=== PATIENT | female | born 1965 | race Caucasian/White ===

== ENCOUNTER 2024-03-06 15:41 | Inpatient (IN) | payer OTHER, SELFPAY ==
--- NOTE | ~2024-03-06 | XR_ITS ---
EXAMINATION: XR LUMBOSACRAL SPINE CLINICAL INFORMATION: Increasing pain. COMPARISON: None available. TECHNIQUE: AP and lateral views of the lumbar spine and lateral view of the lumbosacral junction. FINDINGS: There is bony demineralization. Vertebral body heights are normal. At L2-L3, there is rightward disc space narrowing, a 4 mm retrolisthesis and endplate arthropathy. At L3-L4, there is a 4 mm retrolisthesis. At L5-S1, there is marked degenerative disc disease, with disc space narrowing. No acute fracture or spondylolisthesis is seen. There is multi-level lumbar endplate and facet arthropathy. The paravertebral soft tissues are unremarkable. XR/XR lumbar spine 2-3V IMPRESSION: 1. There is moderate degenerative disease at L2-L3 and L3-L4, and marked degenerative disc disease is seen at L5-S1. 2. There is multi-level lumbar spondylosis and endplate arthropathy.
[2024-03-06 16:30] VITALS: PULSE 112; RESP 16; TEMP 36.6
[2024-03-06 17:32] VITALS: BMI 25.9
--- NOTE | 2024-03-06 18:24 | PC.ADMIT ---
Esther arrived via ambulance from [facility] at 1600. She initially refused to get off the stretcher, stating I cant walk . With much encouragement from this nurse and sharing with her that the previous hospital shared that she was doing well walking around , she eventually got off the stretcher with staff assist. She cooperated with skin/safety check, her skin check was only remarkable for a superficial 1.5inch abrasion on top of right foot, she has dry flaky skin on face. She is oriented to person only. She was oriented by this nurse for the other facets but they did not appear to be retained. Esther declined the CV and a 12b was signed by Jimenez Garsia NP. She denies knowing why she is here. She described the ambulance ride as treacherous and terrible . She was recently at [facility] and upon discharge and return to her snf, she reported weakness and not being able to get off of the stretcher. She was then brought to [facility] for evaluation. This, according to hospital record, is not unusual as she has a history of similar behaviours and is likely volitional . She is unkempt and malodorous. She was uncooperative with admission process, refused vitals and to fill out the menu. She was shown to her room, she is distressed and angry that she is here. She states she will refuse to eat or drink. She has working diagnosis of anxiety, atrial fibrillation, generalized weakness, [id number], seizure disorder, HTN, BIPOLAR, SCHIZOAFFECTIVE DISORDER. Order for hospitalist consult placed per policy as she came from outside facility.
--- NOTE | 2024-03-06 18:30 | HO.PM.IMCN ---
History of Present Illness Data of Consult Service Date: 03/06/24 Primary Care Provider: Unknown Physician HPI Reason for consult: Admission H&P Pt is a 59-year-old female with a PMH significant for?unspecified seizure disorder, hx of PE on Eliquis, HTN, GERD, schizoaffective disorder, and bipolar disorder who is admitted to M5 psychiatry unit for psychological decompensation with SI and HI. Pt was recently hospitalized at [facility] and discharged to a new [facility]. However, upon arrival pt refused to get out of the van, complaining she was too weak to walk. She was then brought back to the hospital where she initially refused to answer questions or participate in physical exam. She eventually told an RN she refused to leave the transport vehicle because they did not bring her to her old [facility]. According to documentation, pt has a long history of maladaptive behaviors, including refusing to walk/talk, being selectively mute, threatening to kill staff, generally being uncooperative with interviews and treatment. Pt exhibited similar behavior after being brought here to this facility, complaining of being too weak to walk and get off the stretcher, though pt has since been able to freely ambulate while in her room. Medical consult for admission H&P. ?Pt is selectively cooperative during interview, not responding to all ROS queries and only complaining about feeling like she will pass out while eating when she does answer. She is unable to further clarify what symptoms she is feeling. Pt is constantly grunting/mumbling to herself and exhibiting tardive dyskinesia-like lip-smacking movements. Review of Systems Review of Systems: Complains only of feeling like she will pass out [facility] Medical History (Updated 03/07/24 @ 12:34 by ALBANIA Harrell) Pulmonary embolism Seizure disorder Hyperlipidemia Hypertension Social History Household Members: Other Household Members Other:: [facility]cc Housing: Other Housing Other:: [facility] Patient Tobacco Use Status: Never used Tobacco Smoked in Last 30 Days: No e-Cigarette/Vaping Use: Never Used Patient Interested in Nicotine Replacement: No Patient Given Instructions on How to Stop Smoking: No Second Hand Smoke Exposure: No Use of substances other than those prescribed or required for medical reasons: No Currently Displaying Signs/Symptoms of Drug Intoxication Withdrawal: No Do you feel safe in your current relationship?: No Current Relationship Spiritual Healthcare Practices: refuses to participate Mormon Healthcare Practices: refuses to participate Cultural Healthcare Practices: refuses to participate Advance Directives: No Advance Directives Information Provided: No Do you have thoughts of harming others: None Do you have a plan to hurt others: No Plan Nutrition Risks: No Nutritional Risk Patient : No : No Poor oral hygiene: No Meds Allergies Allergy/AdvReac Type Severity Reaction Status Date / Time amoxicillin Allergy Unknown Verified 03/06/24 17:04 aripiprazole [From Abilify] Allergy Unknown Verified 03/06/24 17:20 Barbiturates Allergy Nausea and Verified 03/06/24 17:20 Vomiting ceftriaxone Allergy Unknown Verified 03/06/24 17:20 ciprofloxacin Allergy Unknown Verified 03/06/24 17:20 Latex, Natural Rubber Allergy Hives Verified 03/06/24 17:20 oxycodone Allergy Unknown Verified 03/06/24 17:20 Penicillins Allergy Unknown Verified 03/06/24 17:20 Sulfa (Sulfonamide Allergy Blister Verified 03/06/24 17:20 Antibiotics) venlafaxine [From Effexor] Allergy Unknown Verified 03/06/24 17:20 Venlafaxine Analogues Allergy Unknown Verified 03/06/24 17:20 Active Medications: Current Medications Acetaminophen (Acetaminophen 325 Mg Tablet) 650 mg PO Q6H PRN PRN Reason: Headache/Pain Mild Scale (1-3) Al Hydroxide/Mg Hydroxide (Magnesium Hydrox/Alum Hydrox 30 Ml Oral.Susp) 30 ml PO Q6H PRN PRN Reason: Heartburn/Nausea Hydroxyzine HCl (Hydroxyzine Hcl 25 Mg Tablet) 25 mg PO Q6H PRN PRN Reason: Anxiety Magnesium Hydroxide (Milk Of Magnesia 30 Ml Oral.Susp) 30 ml PO DAILY PRN PRN Reason: Constipation Nicotine Polacrilex (Nicotine Polacrilex 2 Mg Gum) 2 mg BUCCAL Q2H PRN PRN Reason: Nicotine Cravings Trazodone HCl (Trazodone Hcl 50 Mg Tablet) 50 mg PO BEDTIME MRX1 PRN PRN Reason: Insomnia Home Medications ?Medication ?Instructions ?Recorded ?Confirmed ?Last Taken ?Type acetaminophen 325 mg tablet 650 mg PO Q6H PRN Anxiety 03/06/24 03/06/24 Unknown History apixaban 2.5 mg tablet 2.5 mg PO BID 03/06/24 03/06/24 Unknown History bisacodyl 5 mg tablet 10 mg BEDTIME 03/06/24 03/06/24 Unknown History cyclobenzaprine 10 mg tablet 10 mg PO TID PRN muscle spasms 03/06/24 03/06/24 Unknown History docusate sodium 100 mg capsule 100 mg PO DAILY 03/06/24 03/06/24 Unknown History famotidine 40 mg tablet 40 mg PO DAILY 03/06/24 03/06/24 Unknown History ferrous sulfate 325 mg (65 mg 325 mg PO DAILY 03/06/24 03/06/24 Unknown History iron) tablet fluphenazine HCl 2.5 mg tablet 2.5 mg PO BID 03/06/24 03/06/24 Unknown History fluphenazine HCl 5 mg tablet 5 mg PO BEDTIME 03/06/24 03/06/24 Unknown History fluticasone propionate 50 1 spray intranasal BID 03/06/24 03/06/24 Unknown History mcg/actuation nasal spray,suspension gabapentin 100 mg capsule 100 mg PO TID 03/06/24 03/06/24 Unknown History lamotrigine 25 mg tablet 25 mg PO BID 03/06/24 03/06/24 Unknown History levetiracetam 1,000 mg tablet 1,000 mg PO BID 03/06/24 03/06/24 Unknown History lidocaine 4 % topical cream 1 appl topical DAILY 03/06/24 03/06/24 Unknown History lidocaine 5 % topical patch 1 patch topical DAILY 03/06/24 03/06/24 Unknown History lorazepam 1 mg tablet 1 mg PO BID 03/06/24 03/06/24 Unknown History losartan 50 mg tablet 50 mg PO DAILY 03/06/24 03/06/24 Unknown History magnesium oxide 400 mg (241.3 mg 400 mg PO DAILY 03/06/24 03/06/24 Unknown History magnesium) tablet melatonin 3 mg tablet 3 mg PO BEDTIME PRN Sleep 03/06/24 03/06/24 Unknown History metoprolol succinate 50 mg 50 mg PO DAILY 03/06/24 03/06/24 Unknown History tablet,extended release 24 hr miconazole 2 topical BEDTIME 03/06/24 Unknown History multivitamin with minerals 1 tab PO DAILY 03/06/24 03/06/24 Unknown History paliperidone 6 mg tablet,extended 6 mg PO QAM 03/06/24 03/06/24 Unknown History release 24 hr polyethylene glycol 3350 17 gram 17 g PO DAILY 03/06/24 03/06/24 Unknown History oral powder packet (Miralax) sennosides 17.2 mg tablet 17.2 mg PO BID 03/06/24 03/06/24 Unknown History simethicone 80 mg chewable tablet 80 mg PO QID 03/06/24 03/06/24 Unknown History (Gas Relief 80 (simethicone)) thiamine HCl (vitamin B1) 100 mg 100 mg PO DAILY 03/06/24 03/06/24 Unknown History tablet tramadol 50 mg tablet 50 mg PO Q4H PRN Severe Pain 03/06/24 03/06/24 Unknown History (Scale Score 7-10) Physical Exam Vital Signs and Narrative: Vital Signs: BMI result Body Mass Index 25.9 General: Alert, answering questions selectively, no acute distress Resp: CTA bilaterally CVS: S1, S2, RRR GI: +BS, NT, no distention Skin: Warm, dry Neuro: Cranial nerves II-XII grossly intact bilaterally. Motor grossly intact bilaterally though global weakness noted. Resting tremors of upper extremities. Repetitive lip smacking. Extremities: No edema Psych: Appropriate affect Results Labs 03/07/24 08:29 03/07/24 08:29 Assessment and Plan (1) Medical clearance for psychiatric admission: Status: Acute Plan Pt is a 59-year-old female with a PMH significant for?unspecified seizure disorder, hx of PE on Eliquis, HTN, GERD, schizoaffective disorder, and bipolar disorder who is admitted to M5 psychiatry unit for psychological decompensation with SI and HI. Medical consult for admission H&P. Mood disorder Plan as per psychiatry Seizure disorder, unspecified Continue Keppra Hx of DVT/PE Continue Eliquis HTN Acceptable control under current therapies Continue losartan, metoprolol GERD Continue famotidine Thank you for allowing us to participate in the care of this patient. Signing off at this time. Please re-consult if any acute complaints or issues arise.
[2024-03-06 19:18] VITALS: BP 140/76; PULSE 111; TEMP 36.7; O2SAT 98
[2024-03-06 21:10] VITALS: BP 191/99; PULSE 148; TEMP 36.8; O2SAT 97
[2024-03-06] MEDS: diazePAM 10 MG/2 ML CARTRIDGE 5 MG IM (21:18)
--- NOTE | 2024-03-06 21:23 | PM.EVENT ---
Event Note Date of Service: 03/06/24 Event Note: Rapid response was called for possible seizure. As per the nurse, patient was not responding to verbal stimulus and questionable eye rolling and jerking movements of extremities. Not postictal at the time of my evaluation. Seizure versus pseudo-seizure in a patient with seizure disorder. Administering IM Valium. Continue Keppra, Lamictal, p.o. lorazepam Time Spent With Patient Time: Total time managing care of this patient today ____ minutes.
[2024-03-06 21:25] VITALS: BP 142/80; PULSE 125; TEMP 36.8; O2SAT 97
[2024-03-06] MEDS: LORazepam 1 MG TABLET PO (22:20)
[2024-03-06] MEDS: Simethicone 80 MG TAB.CHEW PO (22:20)
[2024-03-06] MEDS: fluPHENAZine HCl 5 MG TABLET PO (22:23)
[2024-03-06] MEDS: lamoTRIgine 25 MG TABLET PO (22:23)
[2024-03-06] MEDS: levETIRAcetam 1,000 MG TABLET 1000 MG PO (22:23)
[2024-03-06] MEDS: Gabapentin 100 MG CAPSULE PO (22:23)
[2024-03-06] MEDS: Paliperidone ER 6 MG TAB.ER.24 PO (22:24)
[2024-03-06] MEDS: Apixaban 2.5 MG TABLET PO (22:24)
[2024-03-06 22:25] VITALS: BP 136/69; PULSE 100; RESP 18; TEMP 36.4; O2SAT 95
[2024-03-06] MEDS: fluPHENAZine HCl 2.5 MG TABLET PO (22:33)
--- NOTE | 2024-03-07 07:23 | PC.NURSE ---
Pt appeared to have a possible seizure at 2007 in her bed with no fall. Pt initially had a fixed stare followed by convulsions and cherelle limbs lasting about 1.5 minutes. Rapid response was called at 2107, VS were assessed and code cart was brought to room. Pt responded with delayed verbal responses at 2109. Rapid Response team arrived at 2110. Dr. Baker ordered Valium 5mg IM that was given at 2117. Pt had elevated BP and Pulse that settled to baseline with in an hour. Dr. Baker okayed pt getting HAS meds which were given including Keppra 100mg BID. Pt appeared to sleep through night. On-Call provider, Dr Recinos informed at 2321.
[2024-03-07 08:00] VITALS: BP 140/63; PULSE 115; RESP 16; TEMP 36.3; O2SAT 95
--- NOTE | 2024-03-07 08:39 | P.HPPS_ITS ---
HPI Date of Service: 03/07/24 Chief Complaint: Schizoaffective Disorder Bipolar Type Sources of Information: patient interviewed, chart reviewed and crisis/core team assessment reviewed HPI Subjective Notes: Parker Warning and Conditional Voluntary Narrative: Ms. Howard is a 59 year-old woman with hx of schizoaffective disorder who resides at . Per records, pt was being discharged from [facility] and declined to get out of van to go to her nursing home reporting that she was weak and couldn't ambulate. She was brought to ED medically cleared. On the unit, pt presents with irritable edge. She reports she can't walk and is about to faint. Pt redirected to sit on the chair which at times she declines stating she is not comfortable doing so. She denies SI/HI. She reports she is here because of her weakness. She reports she needs a new place to live. No contact information was included from records sent from sending hospital. She is a poor hisotrian and intake is very limited. She denies visual or auditory hallucinations. She may have some degree of somatic delusions. Although it is noted some myoclonus on exam on both lower extremities. Past Psychiatric History: INpt: per records multiple in the past. recently discharged from [facility] Medical Evaluation Reviewed: Yes [facility] Medical History (Updated 03/09/24 @ 06:11 by Erin Johnson) Pulmonary embolism Seizure disorder Hyperlipidemia Hypertension Social History: Pt resides at . Substance History: denies Trauma History: not disclosed Diagnostics Vital Signs (24Hr): Vital Signs - 24 hr 03/06/24 16:30 03/06/24 19:18 03/06/24 21:10 Temperature 97.8 F 98.0 F 98.2 F Pulse Rate 112 H 111 H 148 H Respiratory Rate 16 Blood Pressure 140/76 H 191/99 H Pulse Oximetry 98 97 Oxygen Delivery Method Room Air Room Air 03/06/24 21:25 03/06/24 22:25 Temperature 98.2 F 97.5 F Pulse Rate 125 H 100 Respiratory Rate 18 Blood Pressure 142/80 H 136/69 Pulse Oximetry 97 95 Oxygen Delivery Method Room Air Room Air BMI result Body Mass Index 25.9 Labs 03/07/24 08:29 03/07/24 08:29 Meds/Allergies Meds Home Medications ?Medication ?Instructions ?Recorded ?Confirmed ?Type acetaminophen 325 mg tablet 650 mg PO Q6H PRN Anxiety 03/06/24 03/06/24 History apixaban 2.5 mg tablet 2.5 mg PO BID 03/06/24 03/06/24 History bisacodyl 5 mg tablet 10 mg BEDTIME 03/06/24 03/06/24 History cyclobenzaprine 10 mg tablet 10 mg PO TID PRN muscle spasms 03/06/24 03/06/24 History docusate sodium 100 mg capsule 100 mg PO DAILY 03/06/24 03/06/24 History famotidine 40 mg tablet 40 mg PO DAILY 03/06/24 03/06/24 History ferrous sulfate 325 mg (65 mg 325 mg PO DAILY 03/06/24 03/06/24 History iron) tablet fluphenazine HCl 2.5 mg tablet 2.5 mg PO BID 03/06/24 03/06/24 History fluphenazine HCl 5 mg tablet 5 mg PO BEDTIME 03/06/24 03/06/24 History fluticasone propionate 50 1 spray intranasal BID 03/06/24 03/06/24 History mcg/actuation nasal spray,suspension gabapentin 100 mg capsule 100 mg PO TID 03/06/24 03/06/24 History lamotrigine 25 mg tablet 25 mg PO BID 03/06/24 03/06/24 History levetiracetam 1,000 mg tablet 1,000 mg PO BID 03/06/24 03/06/24 History lidocaine 4 % topical cream 1 appl topical DAILY 03/06/24 03/06/24 History lidocaine 5 % topical patch 1 patch topical DAILY 03/06/24 03/06/24 History lorazepam 1 mg tablet 1 mg PO BID 03/06/24 03/06/24 History losartan 50 mg tablet 50 mg PO DAILY 03/06/24 03/06/24 History magnesium oxide 400 mg (241.3 mg 400 mg PO DAILY 03/06/24 03/06/24 History magnesium) tablet melatonin 3 mg tablet 3 mg PO BEDTIME PRN Sleep 03/06/24 03/06/24 History metoprolol succinate 50 mg 50 mg PO DAILY 03/06/24 03/06/24 History tablet,extended release 24 hr miconazole 2 topical BEDTIME 03/06/24 History multivitamin with minerals 1 tab PO DAILY 03/06/24 03/06/24 History paliperidone 6 mg tablet,extended 6 mg PO QAM 03/06/24 03/06/24 History release 24 hr polyethylene glycol 3350 17 gram 17 g PO DAILY 03/06/24 03/06/24 History oral powder packet (Miralax) sennosides 17.2 mg tablet 17.2 mg PO BID 03/06/24 03/06/24 History simethicone 80 mg chewable tablet 80 mg PO QID 03/06/24 03/06/24 History (Gas Relief 80 (simethicone)) thiamine HCl (vitamin B1) 100 mg 100 mg PO DAILY 03/06/24 03/06/24 History tablet tramadol 50 mg tablet 50 mg PO Q4H PRN Severe Pain 03/06/24 03/06/24 History (Scale Score 7-10) Allergies Allergies Allergy/AdvReac Type Severity Reaction Status Date / Time amoxicillin Allergy Unknown Verified 03/06/24 17:04 aripiprazole [From Abilify] Allergy Unknown Verified 03/06/24 17:20 Barbiturates Allergy Nausea and Verified 03/06/24 17:20 Vomiting ceftriaxone Allergy Unknown Verified 03/06/24 17:20 ciprofloxacin Allergy Unknown Verified 03/06/24 17:20 Latex, Natural Rubber Allergy Hives Verified 03/06/24 17:20 oxycodone Allergy Unknown Verified 03/06/24 17:20 Penicillins Allergy Unknown Verified 03/06/24 17:20 Sulfa (Sulfonamide Allergy Blister Verified 03/06/24 17:20 Antibiotics) venlafaxine [From Effexor] Allergy Unknown Verified 03/06/24 17:20 Venlafaxine Analogues Allergy Unknown Verified 03/06/24 17:20 Mental Status Exam Mental Status Exam Narrative: Appearance: appears older than stated age, irritable edge, wearing glasses, in NAD Behavior: irritable and guarded Psychomotor: no agitation or retardation noted Speech: mumbles, difficult to understand at times, spontaneous TP: focused on inability to walk and weakness TC: wanting treatment for weakness Mood: tired Affect: irritable edge, intense eye contact SI: denies HI: denies VH/AH: does not appear internally preoccupied Delusions: unclear if somatic delusions. Insight/judgment: impaired x 2. memory/cog: alert, not oriented to situation although oriented to place, year, month. Assessment & Plan Assessment & Plan (1) Schizoaffective disorder: Status: Acute Code(s): F25.9 - Schizoaffective disorder, unspecified Plan Ms. Howard is a 59 year-old woman with hx of schizoaffective disorder who was admitted for declining to get out of the van to her nursing home after she was discharged from [facility]). Per records, hx of maladaptive behaviors which are chronic. No other acute concern in terms of psychiatric presentation. Pt is very poor historian and documentation sent from hospital is also limited. Obtain collateral information. PLAN 1. admit to . CV, 15 minutes checks for safety 2. continue current medications 3. obtain collateral information 4. aftercare planning. Patient educated on: diagnosis and medication risk/benefits Reason for continued inpatient stay Substantial Risk for: inability to function Statement Statement: I have reviewed the history and physical and performed a pertinent examination on my patient. No changes have occurred unless specified. If the History and Physical was not performed prior to admission, the Hospitalist's service will be consulted for completing the admission physical. Time Spent With Patient Time: Total time managing care of this patient today ____ minutes.
[2024-03-07 08:44] LABS: MANUAL DIFF FLAG NO
[2024-03-07 08:47] LABS: Basophils Percent Auto 0.2 % (0-2); Hematocrit 33.2 % (37.0-47.0); Hemoglobin 11.1 g/dl (12.0-16.0); Imm Gran Abs Auto 0.02 X10*3/uL (0.00-0.03); Imm Gran Pct Auto 0.4 % (0.0-0.4); Lymphocytes Absolute Auto 1.1 X10*3/uL (1.2-4.9); Lymphocytes Percent Auto 22.7 % (20-40); Mean Corpuscular HGB Conc 33.4 g/dl (31.0-35.0); Mean Corpuscular Hemoglobin 30.4 pg (27.0-33.0); Mean Platelet Volume 8.4 fL (9.4-12.3); Monocytes Absolute Auto 0.4 X10*3/uL (0.1-1.2); Monocytes Percent Auto 7.4 % (2-11); Neutrophils Absolute Auto 3.3 x10*3/uL (2.0-8.3); Neutrophils Percent Auto 69.3 % (45-73); Platelet Count 196 X10*3/uL (160-400); Red Blood Count 3.65 X10*6/uL (4.20-5.50); Red Cell Distribution Width 15.1 % (11.0-16.0); White Blood Count 4.8 X10*3/uL (4.8-10.8)
[2024-03-07] MEDS: Thiamine HCL 100 MG TABLET PO (09:00)
[2024-03-07 09:09] LABS: Estimated Average Glucose 123 mg/dL; Hemoglobin A1c % 5.9 % (<6.0)
[2024-03-07] MEDS: Simethicone 80 MG TAB.CHEW PO ×3 (09:12→21:00)
[2024-03-07] MEDS: Paliperidone ER 6 MG TAB.ER.24 PO (09:14)
[2024-03-07] MEDS: Docusate Sodium 100 MG CAPSULE PO (09:14)
[2024-03-07] MEDS: LORazepam 1 MG TABLET PO ×2 (09:14→20:59)
[2024-03-07] MEDS: Ferrous Sulfate 324 MG TABLET.DR PO (09:14)
[2024-03-07] MEDS: lamoTRIgine 25 MG TABLET PO ×2 (09:14→20:59)
[2024-03-07] MEDS: Famotidine 20 MG TABLET 40 MG PO (09:15)
[2024-03-07] MEDS: Magnesium Oxide 400 MG TABLET PO (09:16)
[2024-03-07] MEDS: fluPHENAZine HCl 2.5 MG TABLET PO ×2 (09:16→21:00)
[2024-03-07] MEDS: levETIRAcetam 1,000 MG TABLET 1000 MG PO ×2 (09:16→20:59)
[2024-03-07] MEDS: Apixaban 2.5 MG TABLET PO ×2 (09:16→21:00)
[2024-03-07] MEDS: Gabapentin 100 MG CAPSULE PO ×3 (09:16→20:59)
[2024-03-07] MEDS: Losartan Potassium 50 MG TABLET PO (09:16)
[2024-03-07 09:17] LABS: Alanine Aminotransferase 9 U/L (0-31); Albumin Level 3.8 g/dL (3.5-5.0); Alkaline Phosphatase 57 U/L (39-117); Anion Gap 12 (12-20); Aspartate Amino Transferase 11 U/L (5-31); Bilirubin Total 0.3 mg/dL (0.0-1.0); Blood Urea Nitrogen 13 mg/dL (9-16); Calcium 9.2 mg/dL (8.4-10.2); Carbon Dioxide 24 mmol/L (22-29); Chloride 107 mmol/L (96-108); Cholesterol 224 mg/dL (<200); Creatinine Clr Calc Pharmacy 93.6; Estimated Glomerular Filt Rate > 60; Glucose Fasting 154 mg/dL (60-99); HDL Cholesterol 47 mg/dL (>40); LDL Cholesterol Calculated 161 mg/dL (<100); Potassium 3.2 mmol/L (3.3-5.1); Sodium 140 mmol/L (135-145); Total Protein 6.3 g/dL (6.5-8.0); Triglycerides 81 mg/dL (<150)
[2024-03-07 09:34] LABS: Free T4 (Free Thyroxine) 1.06 ng/dL (0.71-1.85); Thyroid Stimulating Hormone 1.95 uIU/mL (0.32-4.0)
[2024-03-07] MEDS: Lidocaine 4 % Patch ADH..PATCH 1 PATCH TRANSDERMA ×2 (09:36→13:26)
[2024-03-07] MEDS: Multivitamin TABLET 1 TAB PO (09:39)
[2024-03-07 09:44] LABS: Folate 11.1 ng/mL (> or = 4.0); Vitamin B12 334 pg/mL (200-900)
[2024-03-07] MEDS: Metoprolol Succinate ER 50 MG TAB.ER.24H PO (09:52)
[2024-03-07] MEDS: Acetaminophen 325 MG TABLET 650 MG PO (13:25)
[2024-03-07] MEDS: Cyclobenzaprine HCl 10 MG TABLET PO (15:25)
[2024-03-07] MEDS: traMADoL HCL 50 MG TABLET PO (15:25)
[2024-03-07 20:00] VITALS: BP 95/58; PULSE 92; RESP 16; TEMP 36.4; O2SAT 100
[2024-03-07] MEDS: fluPHENAZine HCl 5 MG TABLET PO (20:59)
[2024-03-07] MEDS: Sennosides 8.6 MG TABLET 17.2 MG PO (20:59)
[2024-03-07] MEDS: bisacodyL 5 MG TABLET.DR 10 MG PO (21:00)
[2024-03-08 08:00] VITALS: BP 138/84; PULSE 104; RESP 16; TEMP 36.6; O2SAT 97
[2024-03-08] MEDS: Paliperidone ER 6 MG TAB.ER.24 PO (09:47)
[2024-03-08] MEDS: lamoTRIgine 25 MG TABLET PO ×2 (09:47→20:11)
[2024-03-08] MEDS: Thiamine HCL 100 MG TABLET PO (09:47)
[2024-03-08] MEDS: polyethylene glycoL 3350 17 GM POWD.PACK PO (09:47)
[2024-03-08] MEDS: Sennosides 8.6 MG TABLET 17.2 MG PO ×2 (09:47→20:11)
[2024-03-08] MEDS: Gabapentin 100 MG CAPSULE PO ×3 (09:47→20:11)
[2024-03-08] MEDS: fluPHENAZine HCl 2.5 MG TABLET PO ×2 (09:47→20:11)
[2024-03-08] MEDS: Magnesium Oxide 400 MG TABLET PO (09:47)
[2024-03-08] MEDS: LORazepam 1 MG TABLET PO ×2 (09:48→20:11)
[2024-03-08] MEDS: Multivitamin TABLET 1 TAB PO (09:48)
[2024-03-08] MEDS: Metoprolol Succinate ER 50 MG TAB.ER.24H PO (09:48)
[2024-03-08] MEDS: Apixaban 2.5 MG TABLET PO ×2 (09:48→20:11)
[2024-03-08] MEDS: Famotidine 20 MG TABLET 40 MG PO (09:48)
[2024-03-08] MEDS: levETIRAcetam 1,000 MG TABLET 1000 MG PO ×2 (09:48→20:11)
[2024-03-08] MEDS: Cyclobenzaprine HCl 10 MG TABLET PO (09:48)
[2024-03-08] MEDS: Ferrous Sulfate 324 MG TABLET.DR PO (09:48)
[2024-03-08] MEDS: Simethicone 80 MG TAB.CHEW PO ×3 (09:48→20:10)
[2024-03-08] MEDS: Docusate Sodium 100 MG CAPSULE PO (09:48)
[2024-03-08] MEDS: Losartan Potassium 50 MG TABLET PO (09:49)
[2024-03-08] MEDS: Acetaminophen 325 MG TABLET 650 MG PO (09:50)
[2024-03-08] MEDS: Fluticasone Propionate Nasal 16 GM SPRAY 1 SPRAY NOSTRIL-B (10:01)
[2024-03-08] MEDS: Lidocaine 4 % Patch ADH..PATCH 1 PATCH TRANSDERMA (10:01)
--- NOTE | 2024-03-08 19:23 | P.PNPSI_ITS ---
Subjective Subjective Date of Service: 03/08/24 Reason For Visit: Schizoaffective Disorder Bipolar Type Subjective Notes: Conditional Voluntary Interim History: Pt slept most of the night. continues to complaint about not being able to walk and people not believing her. She is observed walking. She denies SI/HI. She asking for staff to be with her at all times. She has irritable edge. taking medications. pending collateral information Review of Systems Review of Systems Complains only of feeling like she will pass out Mental Status Exam Mental Status Exam Narrative: Appearance: appears older than stated age, irritable edge, wearing glasses, in NAD Behavior: irritable and guarded Psychomotor: no agitation or retardation noted Speech: mumbles, difficult to understand at times, spontaneous TP: focused on inability to walk and weakness TC: wanting treatment for weakness Mood: tired Affect: irritable edge, intense eye contact SI: denies HI: denies VH/AH: does not appear internally preoccupied Delusions: unclear if somatic delusions. Insight/judgment: impaired x 2. memory/cog: alert, not oriented to situation although oriented to place, year, month. Diagnostics Vital Signs (24Hr): Vital Signs - 24 hr 03/07/24 20:00 03/08/24 08:00 Temperature 97.5 F 98 F Pulse Rate 92 104 H Respiratory Rate 16 16 Blood Pressure 95/58 L 138/84 Pulse Oximetry 100 97 Oxygen Delivery Method Room Air Room Air BMI result Body Mass Index 25.9 Labs 03/07/24 08:29 03/07/24 08:29 Labs: Laboratory Results - last 48 hr 03/07/24 08:29 WBC 4.8 RBC 3.65 L Hgb 11.1 L Hct 33.2 L MCV 91.0 MCH 30.4 MCHC 33.4 RDW 15.1 Plt Count 196 MPV 8.4 L Immature Gran % (Auto) 0.4 Neut % (Auto) 69.3 Lymph % (Auto) 22.7 Travis % (Auto) 7.4 Eos % (Auto) 0.0 Baso % (Auto) 0.2 Lymph # (Auto) 1.1 L Travis # (Auto) 0.4 Eos # (Auto) 0.0 Baso # (Auto) 0.0 Abs Immat Gran (auto) 0.02 Absolute Neuts (auto) 3.3 Absolute Nucleated RBC 0.000 Nucleated RBC % (auto) 0.0 Sodium 140 Potassium 3.2 L Chloride 107 Carbon Dioxide 24 Anion Gap 12 BUN 13 Creatinine 0.63 Estim Creat Clear Calc 93.6 Estimated GFR > 60 Fasting Glucose 154 H Estimat Average Glucose 123 Hemoglobin A1c % 5.9 Calcium 9.2 Total Bilirubin 0.3 AST 11 ALT 9 Alkaline Phosphatase 57 Total Protein 6.3 L Albumin 3.8 Triglycerides 81 Cholesterol 224 H LDL Cholesterol, Calc 161 H HDL Cholesterol 47 Vitamin B12 334 Folate 11.1 TSH 1.95 Free T4 1.06 Medications Medications Current Medications Acetaminophen (Acetaminophen 325 Mg Tablet) 650 mg PO Q6H PRN PRN Reason: Headache/Pain Mild Scale (1-3) Last Admin: 03/08/24 09:50 Dose: 650 mg Al Hydroxide/Mg Hydroxide (Magnesium Hydrox/Alum Hydrox 30 Ml Oral.Susp) 30 ml PO Q6H PRN PRN Reason: Heartburn/Nausea Apixaban (Apixaban 2.5 Mg Tablet) 2.5 mg PO BID [facility] Last Admin: 03/08/24 09:48 Dose: 2.5 mg Bisacodyl (Bisacodyl 5 Mg Tablet.) 10 mg PO BEDTIME [facility] Last Admin: 03/07/24 21:00 Dose: 10 mg Cyclobenzaprine HCl (Cyclobenzaprine Hcl 10 Mg Tablet) 10 mg PO TID PRN PRN Reason: muscle spasms Last Admin: 03/08/24 09:48 Dose: 10 mg Docusate Sodium (Docusate Sodium 100 Mg Capsule) 100 mg PO DAILY [facility] Last Admin: 03/08/24 09:48 Dose: 100 mg Famotidine (Famotidine 20 Mg Tablet) 40 mg PO DAILY [facility] Last Admin: 03/08/24 09:48 Dose: 40 mg Ferrous Sulfate (Ferrous Sulfate 324 Mg Tablet.) 324 mg PO DAILY [facility] Last Admin: 03/08/24 09:48 Dose: 324 mg Fluphenazine HCl (Fluphenazine Hcl 2.5 Mg Tablet) 2.5 mg PO BID [facility] Last Admin: 03/08/24 09:47 Dose: 2.5 mg Fluphenazine HCl (Fluphenazine Hcl 5 Mg Tablet) 5 mg PO BEDTIME [facility] Last Admin: 03/07/24 20:59 Dose: 5 mg Fluticasone Propionate (Fluticasone Propionate Nasal 16 Gm [place]) 1 spray NOSTRIL-B BID [facility] Last Admin: 03/08/24 10:01 Dose: 1 spray Gabapentin (Gabapentin 100 Mg Capsule) 100 mg PO TID [facility] Last Admin: 03/08/24 14:23 Dose: 100 mg Hydroxyzine HCl (Hydroxyzine Hcl 25 Mg Tablet) 25 mg PO Q6H PRN PRN Reason: Anxiety Lamotrigine (Lamotrigine 25 Mg Tablet) 25 mg PO BID [facility] Last Admin: 03/08/24 09:47 Dose: 25 mg Levetiracetam (Levetiracetam 1,000 Mg Tablet) 1,000 mg PO BID [facility] Last Admin: 03/08/24 09:48 Dose: 1,000 mg Lidocaine (Lidocaine 4 % Patch Adh..Patch) 1 patch TRANSDERMA DAILY [facility] Last Admin: 03/08/24 10:01 Dose: 1 patch Lorazepam (Lorazepam 1 Mg Tablet) 1 mg PO BID [facility] Last Admin: 03/08/24 09:48 Dose: 1 mg Losartan Potassium (Losartan Potassium 50 Mg Tablet) 50 mg PO DAILY [facility]; Protocol Last Admin: 03/08/24 09:49 Dose: 50 mg Magnesium Hydroxide (Milk Of Magnesia 30 Ml Oral.Susp) 30 ml PO DAILY PRN PRN Reason: Constipation Magnesium Oxide (Magnesium Oxide 400 Mg Tablet) 400 mg PO DAILY [facility] Last Admin: 03/08/24 09:47 Dose: 400 mg Melatonin (Melatonin 3 Mg Tablet) 3 mg PO BEDTIME PRN PRN Reason: Sleep Metoprolol Succinate (Metoprolol Succinate Er 50 Mg Tab.Er.24h) 50 mg PO DAILY [facility]; Protocol Last Admin: 03/08/24 09:48 Dose: 50 mg Multivitamins/Vitamin C (Multivitamin Tablet) 1 tab PO DAILY [facility] Last Admin: 03/08/24 09:48 Dose: 1 tab Nicotine Polacrilex (Nicotine Polacrilex 2 Mg Gum) 2 mg BUCCAL Q2H PRN PRN Reason: Nicotine Cravings Paliperidone (Paliperidone Er 6 Mg Tab.Er.24) 6 mg PO DAILY [facility] Last Admin: 03/08/24 09:47 Dose: 6 mg Polyethylene Glycol (Polyethylene Glycol 3350 17 Gm Powd.Pack) 17 gm PO DAILY [facility] Last Admin: 03/08/24 09:47 Dose: 17 gm Senna (Sennosides 8.6 Mg Tablet) 17.2 mg PO BID [facility] Last Admin: 03/08/24 09:47 Dose: 17.2 mg Simethicone (Simethicone 80 Mg Tab.Chew) 80 mg PO QID [facility] Last Admin: 03/08/24 17:41 Dose: Not Given Thiamine HCl (Thiamine Hcl 100 Mg Tablet) 100 mg PO DAILY [facility] Last Admin: 03/08/24 09:47 Dose: 100 mg Tramadol HCl (Tramadol Hcl 50 Mg Tablet) 50 mg PO Q4H PRN PRN Reason: Severe Pain (Scale Score 7-10) Last Admin: 03/07/24 15:25 Dose: 50 mg Trazodone HCl (Trazodone Hcl 50 Mg Tablet) 50 mg PO BEDTIME MRX1 PRN PRN Reason: Insomnia Allergies Allergies Allergy/AdvReac Type Severity Reaction Status Date / Time amoxicillin Allergy Unknown Verified 03/06/24 17:04 aripiprazole [From Abilify] Allergy Unknown Verified 03/06/24 17:20 Barbiturates Allergy Nausea and Verified 03/06/24 17:20 Vomiting ceftriaxone Allergy Unknown Verified 03/06/24 17:20 ciprofloxacin Allergy Unknown Verified 03/06/24 17:20 Latex, Natural Rubber Allergy Hives Verified 03/06/24 17:20 oxycodone Allergy Unknown Verified 03/06/24 17:20 Penicillins Allergy Unknown Verified 03/06/24 17:20 Sulfa (Sulfonamide Allergy Blister Verified 03/06/24 17:20 Antibiotics) venlafaxine [From Effexor] Allergy Unknown Verified 03/06/24 17:20 Venlafaxine Analogues Allergy Unknown Verified 03/06/24 17:20 Assessment & Plan Assessment & Plan (1) Schizoaffective disorder: Status: Acute Code(s): F25.9 - Schizoaffective disorder, unspecified Plan Pt is a 59-year-old female with a PMH significant for?unspecified seizure disorder, hx of PE on Eliquis, HTN, GERD, schizoaffective disorder, and bipolar disorder who is admitted to psychiatry unit for weakness, declining to return to her [facility]. pending collateral information. PLAN 1. admit to , CV, 15 minutes checks for safety pending. Reason for continued inpatient stay Substantial Risk for: inability to function Time Spent With Patient Time: Total time managing care of this patient today ____ minutes.
[2024-03-08 20:00] VITALS: BP 140/66; PULSE 106; RESP 18; TEMP 36.4; O2SAT 95
[2024-03-08] MEDS: traZODone HCL 50 MG TABLET PO (20:11)
[2024-03-08] MEDS: fluPHENAZine HCl 5 MG TABLET PO (20:11)
[2024-03-08] MEDS: bisacodyL 5 MG TABLET.DR 10 MG PO (20:11)
[2024-03-09] MEDS: traZODone HCL 50 MG TABLET PO ×2 (00:02→20:35)
[2024-03-09] MEDS: Melatonin 3 MG TABLET PO ×2 (00:02→20:36)
[2024-03-09 08:00] VITALS: BP 119/63; PULSE 85; RESP 18
[2024-03-09] MEDS: Paliperidone ER 6 MG TAB.ER.24 PO (08:50)
[2024-03-09] MEDS: fluPHENAZine HCl 2.5 MG TABLET PO ×2 (08:50→20:35)
[2024-03-09] MEDS: Magnesium Oxide 400 MG TABLET PO (08:51)
[2024-03-09] MEDS: Gabapentin 100 MG CAPSULE PO ×3 (08:51→20:36)
[2024-03-09] MEDS: levETIRAcetam 1,000 MG TABLET 1000 MG PO ×2 (08:51→20:36)
[2024-03-09] MEDS: LORazepam 1 MG TABLET PO ×2 (08:51→20:36)
[2024-03-09] MEDS: Thiamine HCL 100 MG TABLET PO (08:52)
[2024-03-09] MEDS: Multivitamin TABLET 1 TAB PO (08:52)
[2024-03-09] MEDS: Apixaban 2.5 MG TABLET PO ×2 (08:52→20:36)
[2024-03-09] MEDS: Docusate Sodium 100 MG CAPSULE PO (08:52)
[2024-03-09] MEDS: Ferrous Sulfate 324 MG TABLET.DR PO (08:52)
[2024-03-09] MEDS: Famotidine 20 MG TABLET 40 MG PO (08:52)
[2024-03-09] MEDS: lamoTRIgine 25 MG TABLET PO ×2 (08:52→20:36)
[2024-03-09] MEDS: Simethicone 80 MG TAB.CHEW PO ×2 (08:52→15:50)
[2024-03-09] MEDS: Sennosides 8.6 MG TABLET 17.2 MG PO ×2 (08:52→20:35)
[2024-03-09] MEDS: polyethylene glycoL 3350 17 GM POWD.PACK PO (09:50)
--- NOTE | 2024-03-09 15:02 | P.PNPSI_ITS ---
Subjective Subjective Date of Service: 03/09/24 Reason For Visit: Schizoaffective Disorder Bipolar Type Interim History: I am not talking today. Seen with her RN States her brain does not work, her bed is not comfortable, she slept sort of, back pain off and on. Accepting meds. States she does not want to interact, but asks to have contact and interaction. Medication Compliance: Yes Side effects from medications: No Attending Groups: No Review of Systems Acute medical concerns: No Medical Review of Systems: unchanged Review of Systems Review of Systems Yes Unobtainable due to mental status Mental Status Exam Mental Status Exam Patient Appearance: Fatigued Patient Orientation: Person and Place Level of Consciousness: Alert Patient Behavior: Guarded, Talkative, Suspicious and Distractible Mood Description: Depressed and Hostile Affect Description: Flat Patient Cognition Impaired: Yes Ability to Follow Directions: Fair Speech Pattern: Spontaneous Speech and Long Pauses Memory Description: Remote Impaired Hallucinations: Auditory (??) Delusions: Paranoid Ideation and Present Perceptual Disturbances: Depersonalization and Derealization Thought Process: Distracted, Rumination and Confusion Thought Content: positive for [place], positive for Circumstantial and positive for Suicidal Ideation (denies) Depressive Symptoms: Diff. Making Decisions, Thoughts of /Suicide (denies) and Back Pain Judgement: Poor Diagnostics Vital Signs (24Hr): Vital Signs - 24 hr 03/08/24 20:00 03/09/24 08:00 Temperature 97.6 F Pulse Rate 106 H 85 Respiratory Rate 18 18 Blood Pressure 140/66 H 119/63 Pulse Oximetry 95 Oxygen Delivery Method Room Air BMI result Body Mass Index 25.9 Labs 03/07/24 08:29 03/07/24 08:29 Medications Medications Current Medications Acetaminophen (Acetaminophen 325 Mg Tablet) 650 mg PO Q6H PRN PRN Reason: Headache/Pain Mild Scale (1-3) Last Admin: 03/08/24 09:50 Dose: 650 mg Al Hydroxide/Mg Hydroxide (Magnesium Hydrox/Alum Hydrox 30 Ml Oral.Susp) 30 ml PO Q6H PRN PRN Reason: Heartburn/Nausea Apixaban (Apixaban 2.5 Mg Tablet) 2.5 mg PO BID [facility] Last Admin: 03/09/24 08:52 Dose: 2.5 mg Bisacodyl (Bisacodyl 5 Mg Tablet.Dr) 10 mg PO BEDTIME [facility] Last Admin: 03/08/24 20:11 Dose: 10 mg Cyclobenzaprine HCl (Cyclobenzaprine Hcl 10 Mg Tablet) 10 mg PO TID PRN PRN Reason: muscle spasms Last Admin: 03/08/24 09:48 Dose: 10 mg Docusate Sodium (Docusate Sodium 100 Mg Capsule) 100 mg PO DAILY [facility] Last Admin: 03/09/24 08:52 Dose: 100 mg Famotidine (Famotidine 20 Mg Tablet) 40 mg PO DAILY [facility] Last Admin: 03/09/24 08:52 Dose: 40 mg Ferrous Sulfate (Ferrous Sulfate 324 Mg Tablet.Dr) 324 mg PO DAILY [facility] Last Admin: 03/09/24 08:52 Dose: 324 mg Fluphenazine HCl (Fluphenazine Hcl 2.5 Mg Tablet) 2.5 mg PO BID [facility] Last Admin: 03/09/24 08:50 Dose: 2.5 mg Fluphenazine HCl (Fluphenazine Hcl 5 Mg Tablet) 5 mg PO BEDTIME [facility] Last Admin: 03/08/24 20:11 Dose: 5 mg Fluticasone Propionate (Fluticasone Propionate Nasal 16 Gm [place]) 1 spray NOSTRIL-B BID [facility] Last Admin: 03/09/24 09:06 Dose: Not Given Gabapentin (Gabapentin 100 Mg Capsule) 100 mg PO TID [facility] Last Admin: 03/09/24 08:51 Dose: 100 mg Hydroxyzine HCl (Hydroxyzine Hcl 25 Mg Tablet) 25 mg PO Q6H PRN PRN Reason: Anxiety Lamotrigine (Lamotrigine 25 Mg Tablet) 25 mg PO BID [facility] Last Admin: 03/09/24 08:52 Dose: 25 mg Levetiracetam (Levetiracetam 1,000 Mg Tablet) 1,000 mg PO BID [facility] Last Admin: 03/09/24 08:51 Dose: 1,000 mg Lidocaine (Lidocaine 4 % Patch Adh..Patch) 1 patch TRANSDERMA DAILY [facility] Last Admin: 03/09/24 09:59 Dose: Not Given Lorazepam (Lorazepam 1 Mg Tablet) 1 mg PO BID [facility] Last Admin: 03/09/24 08:51 Dose: 1 mg Losartan Potassium (Losartan Potassium 50 Mg Tablet) 50 mg PO DAILY [facility]; Protocol Last Admin: 03/09/24 09:57 Dose: Not Given Magnesium Hydroxide (Milk Of Magnesia 30 Ml Oral.Susp) 30 ml PO DAILY PRN PRN Reason: Constipation Magnesium Oxide (Magnesium Oxide 400 Mg Tablet) 400 mg PO DAILY [facility] Last Admin: 03/09/24 08:51 Dose: 400 mg Melatonin (Melatonin 3 Mg Tablet) 3 mg PO BEDTIME PRN PRN Reason: Sleep Last Admin: 03/09/24 00:02 Dose: 3 mg Metoprolol Succinate (Metoprolol Succinate Er 50 Mg Tab.Er.24h) 50 mg PO DAILY [facility]; Protocol Last Admin: 03/09/24 09:57 Dose: Not Given Multivitamins/Vitamin C (Multivitamin Tablet) 1 tab PO DAILY [facility] Last Admin: 03/09/24 08:52 Dose: 1 tab Nicotine Polacrilex (Nicotine Polacrilex 2 Mg Gum) 2 mg BUCCAL Q2H PRN PRN Reason: Nicotine Cravings Paliperidone (Paliperidone Er 6 Mg Tab.Er.24) 6 mg PO DAILY [facility] Last Admin: 03/09/24 08:50 Dose: 6 mg Polyethylene Glycol (Polyethylene Glycol 3350 17 Gm Powd.Pack) 17 gm PO DAILY [facility] Last Admin: 03/09/24 09:50 Dose: 17 gm Senna (Sennosides 8.6 Mg Tablet) 17.2 mg PO BID [facility] Last Admin: 03/09/24 08:52 Dose: 17.2 mg Simethicone (Simethicone 80 Mg Tab.Chew) 80 mg PO QID [facility] Last Admin: 03/09/24 13:49 Dose: Not Given Thiamine HCl (Thiamine Hcl 100 Mg Tablet) 100 mg PO DAILY [facility] Last Admin: 03/09/24 08:52 Dose: 100 mg Tramadol HCl (Tramadol Hcl 50 Mg Tablet) 50 mg PO Q4H PRN PRN Reason: Severe Pain (Scale Score 7-10) Last Admin: 03/07/24 15:25 Dose: 50 mg Trazodone HCl (Trazodone Hcl 50 Mg Tablet) 50 mg PO BEDTIME MRX1 PRN PRN Reason: Insomnia Last Admin: 03/09/24 00:02 Dose: 50 mg Allergies Allergies Allergy/AdvReac Type Severity Reaction Status Date / Time amoxicillin Allergy Unknown Verified 03/06/24 17:04 aripiprazole [From Abilify] Allergy Unknown Verified 03/06/24 17:20 Barbiturates Allergy Nausea and Verified 03/06/24 17:20 Vomiting ceftriaxone Allergy Unknown Verified 03/06/24 17:20 ciprofloxacin Allergy Unknown Verified 03/06/24 17:20 Latex, Natural Rubber Allergy Hives Verified 03/06/24 17:20 oxycodone Allergy Unknown Verified 03/06/24 17:20 Penicillins Allergy Unknown Verified 03/06/24 17:20 Sulfa (Sulfonamide Allergy Blister Verified 03/06/24 17:20 Antibiotics) venlafaxine [From Effexor] Allergy Unknown Verified 03/06/24 17:20 Venlafaxine Analogues Allergy Unknown Verified 03/06/24 17:20 Assessment & Plan Assessment & Plan (1) Schizoaffective disorder: Status: Acute Code(s): F25.9 - Schizoaffective disorder, unspecified Plan Pt is a 59-year-old female with a PMH significant for?unspecified seizure disorder, hx of PE on Eliquis, HTN, GERD, schizoaffective disorder, and bipolar disorder who is admitted to psychiatry unit for weakness, declining to return to her . pending collateral information. PLAN 1. admit to , CV, 15 minutes checks for safety pending. 03/09/24- Continue regime, collateral contacts. Attempt alliance Reason for continued inpatient stay Substantial Risk for: rapid decompensation Time Spent With Patient Time: Total time managing care of this patient today ____ minutes.
[2024-03-09] MEDS: bisacodyL 5 MG TABLET.DR 10 MG PO (20:35)
[2024-03-09] MEDS: fluPHENAZine HCl 5 MG TABLET PO (20:36)
--- NOTE | 2024-03-10 | ECG_ITS ---
Test Reason : QTC Blood Pressure : / mmHG Vent. Rate : 098 BPM Atrial Rate : 098 BPM P-R Int : 188 ms QRS Dur : 078 ms QT Int : 346 ms P-R-T Axes : 025 -16 032 degrees QTc Int : 441 ms Normal sinus rhythm Low voltage QRS Borderline ECG No previous ECGs available Referred By: Lauren Tran Electronically Signed By:MATA LEE
[2024-03-10 07:55] VITALS: BP 136/66; PULSE 104; RESP 18
[2024-03-10] MEDS: polyethylene glycoL 3350 17 GM POWD.PACK PO (08:00)
[2024-03-10 08:01] VITALS: BP 136/66
[2024-03-10] MEDS: LORazepam 1 MG TABLET PO ×2 (08:01→23:47)
[2024-03-10] MEDS: fluPHENAZine HCl 2.5 MG TABLET PO ×2 (08:01→23:47)
[2024-03-10] MEDS: Losartan Potassium 50 MG TABLET PO (08:01)
[2024-03-10] MEDS: Apixaban 2.5 MG TABLET PO ×2 (08:01→23:48)
[2024-03-10] MEDS: Paliperidone ER 6 MG TAB.ER.24 PO (08:01)
[2024-03-10] MEDS: levETIRAcetam 1,000 MG TABLET 1000 MG PO ×2 (08:01→23:48)
[2024-03-10] MEDS: Simethicone 80 MG TAB.CHEW PO ×2 (14:46→23:48)
[2024-03-10] MEDS: lamoTRIgine 25 MG TABLET PO ×2 (14:46→23:48)
[2024-03-10] MEDS: Ferrous Sulfate 324 MG TABLET.DR PO (14:47)
[2024-03-10] MEDS: Thiamine HCL 100 MG TABLET PO (14:47)
[2024-03-10] MEDS: Docusate Sodium 100 MG CAPSULE PO (14:47)
[2024-03-10] MEDS: Gabapentin 100 MG CAPSULE PO ×2 (14:47→23:48)
[2024-03-10] MEDS: Sennosides 8.6 MG TABLET 17.2 MG PO ×2 (14:49→23:47)
[2024-03-10] MEDS: Magnesium Oxide 400 MG TABLET PO (14:49)
[2024-03-10] MEDS: Multivitamin TABLET 1 TAB PO (14:49)
[2024-03-10] MEDS: Famotidine 20 MG TABLET 40 MG PO (14:49)
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
[2024-03-10 20:00] VITALS: RESP 20
[2024-03-10] MEDS: fluPHENAZine HCl 5 MG TABLET PO (23:47)
[2024-03-10] MEDS: bisacodyL 5 MG TABLET.DR 10 MG PO (23:48)
[2024-03-11 08:00] VITALS: BP 130/61; PULSE 98; RESP 16; TEMP 36.4; O2SAT 95
[2024-03-11] MEDS: fluPHENAZine HCl 2.5 MG TABLET PO ×2 (08:29→20:39)
[2024-03-11] MEDS: Apixaban 2.5 MG TABLET PO ×2 (08:30→20:39)
[2024-03-11] MEDS: levETIRAcetam 1,000 MG TABLET 1000 MG PO ×2 (08:30→20:37)
[2024-03-11] MEDS: lamoTRIgine 25 MG TABLET PO ×2 (08:30→20:39)
[2024-03-11 08:31] VITALS: BP 130/61
[2024-03-11] MEDS: Paliperidone ER 6 MG TAB.ER.24 PO (08:31)
[2024-03-11] MEDS: Losartan Potassium 50 MG TABLET PO (08:31)
[2024-03-11] MEDS: LORazepam 1 MG TABLET PO ×2 (08:31→20:37)
[2024-03-11 08:34] VITALS: BP 130/61; PULSE 98
[2024-03-11] MEDS: Magnesium Oxide 400 MG TABLET PO (08:34)
[2024-03-11] MEDS: Thiamine HCL 100 MG TABLET PO (08:34)
[2024-03-11] MEDS: Metoprolol Succinate ER 50 MG TAB.ER.24H PO (08:34)
[2024-03-11] MEDS: Sennosides 8.6 MG TABLET 17.2 MG PO ×2 (08:34→20:37)
[2024-03-11] MEDS: Ferrous Sulfate 324 MG TABLET.DR PO (08:35)
[2024-03-11] MEDS: Multivitamin TABLET 1 TAB PO (08:35)
[2024-03-11] MEDS: Docusate Sodium 100 MG CAPSULE PO (08:35)
[2024-03-11 08:36] LABS: Anion Gap 10 (12-20); Blood Urea Nitrogen 11 mg/dL (9-16); Carbon Dioxide 25 mmol/L (22-29); Chloride 106 mmol/L (96-108); Estimated Glomerular Filt Rate > 60; Glucose Random 143 mg/dL (60-115); Iron 59 mcg/dL (30-160); Percent Iron Saturation 25 % (15-50); Potassium 3.9 mmol/L (3.3-5.1); Sodium 137 mmol/L (135-145); Total Iron Binding Capacity 237 mcg/dL (228-428); Unsaturated Iron Binding 178 ug/dL
[2024-03-11] MEDS: polyethylene glycoL 3350 17 GM POWD.PACK PO (08:36)
[2024-03-11] MEDS: Simethicone 80 MG TAB.CHEW PO ×4 (08:39→20:38)
[2024-03-11] MEDS: Famotidine 20 MG TABLET 40 MG PO (08:43)
[2024-03-11] MEDS: Gabapentin 100 MG CAPSULE PO ×3 (08:47→20:37)
[2024-03-11 10:09] VITALS: BP 130/61; PULSE 98
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
[2024-03-11 20:00] VITALS: BP 154/79; PULSE 99; TEMP 36.4; O2SAT 96
[2024-03-11] MEDS: bisacodyL 5 MG TABLET.DR 10 MG PO (20:38)
[2024-03-11] MEDS: fluPHENAZine HCl 5 MG TABLET PO (20:39)
[2024-03-12] MEDS: Melatonin 3 MG TABLET PO (01:25)
[2024-03-12] MEDS: traZODone HCL 50 MG TABLET PO (01:25)
[2024-03-12] MEDS: hydrOXYzine HCL 25 MG TABLET PO ×2 (06:04→15:59)
[2024-03-12 08:00] VITALS: BP 138/84; PULSE 100; RESP 16; TEMP 36.6; O2SAT 97
[2024-03-12 10:00] VITALS: BP 154/79; PULSE 99; O2SAT 96
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
[2024-03-12] MEDS: Docusate Sodium 100 MG CAPSULE PO (11:05)
[2024-03-12] MEDS: levETIRAcetam 1,000 MG TABLET 1000 MG PO ×2 (11:05→20:16)
[2024-03-12] MEDS: Multivitamin TABLET 1 TAB PO (11:05)
[2024-03-12] MEDS: Gabapentin 100 MG CAPSULE PO ×3 (11:05→20:15)
[2024-03-12] MEDS: polyethylene glycoL 3350 17 GM POWD.PACK PO (11:05)
[2024-03-12] MEDS: Simethicone 80 MG TAB.CHEW PO ×2 (11:09→20:15)
[2024-03-12] MEDS: Famotidine 20 MG TABLET 40 MG PO (11:09)
[2024-03-12] MEDS: Losartan Potassium 50 MG TABLET PO (11:09)
[2024-03-12] MEDS: Thiamine HCL 100 MG TABLET PO (11:10)
[2024-03-12] MEDS: Metoprolol Succinate ER 50 MG TAB.ER.24H PO (11:10)
[2024-03-12] MEDS: LORazepam 1 MG TABLET PO ×2 (11:10→20:16)
[2024-03-12] MEDS: Sennosides 8.6 MG TABLET 17.2 MG PO ×2 (11:10→20:15)
[2024-03-12] MEDS: fluPHENAZine HCl 2.5 MG TABLET PO (11:10)
[2024-03-12] MEDS: lamoTRIgine 25 MG TABLET PO ×2 (11:11→20:16)
[2024-03-12] MEDS: Paliperidone ER 6 MG TAB.ER.24 PO (11:11)
[2024-03-12] MEDS: Lidocaine 4 % Patch ADH..PATCH 1 PATCH TRANSDERMA (11:11)
[2024-03-12] MEDS: Apixaban 2.5 MG TABLET PO ×2 (11:11→20:30)
[2024-03-12] MEDS: Magnesium Oxide 400 MG TABLET PO (11:12)
[2024-03-12] MEDS: Fluticasone Propionate Nasal 16 GM SPRAY 1 SPRAY NOSTRIL-B (11:13)
[2024-03-12] MEDS: Ferrous Sulfate 324 MG TABLET.DR PO (11:13)
[2024-03-12] MEDS: Acetaminophen 325 MG TABLET 650 MG PO (11:18)
[2024-03-12] MEDS: Cyclobenzaprine HCl 10 MG TABLET PO (11:19)
[2024-03-12 20:00] VITALS: BP 137/77; PULSE 91; RESP 18; TEMP 36.4; O2SAT 96
[2024-03-12] MEDS: bisacodyL 5 MG TABLET.DR 10 MG PO (20:15)
[2024-03-12] MEDS: fluPHENAZine HCl 5 MG TABLET PO (20:16)
[2024-03-13] MEDS: traZODone HCL 50 MG TABLET PO ×2 (01:36→23:59)
[2024-03-13 08:00] VITALS: BP 113/65; PULSE 106; RESP 16; TEMP 36.3; O2SAT 98
[2024-03-13] MEDS: polyethylene glycoL 3350 17 GM POWD.PACK PO (10:21)
[2024-03-13] MEDS: Lidocaine 4 % Patch ADH..PATCH 1 PATCH TRANSDERMA (10:21)
[2024-03-13] MEDS: Metoprolol Succinate ER 50 MG TAB.ER.24H PO (10:27)
[2024-03-13] MEDS: Ferrous Sulfate 324 MG TABLET.DR PO (10:27)
[2024-03-13] MEDS: Paliperidone ER 9 MG TAB.ER.24 PO (10:27)
[2024-03-13] MEDS: Famotidine 20 MG TABLET 40 MG PO (10:27)
[2024-03-13] MEDS: Escitalopram Oxalate 5 MG TABLET PO (10:27)
[2024-03-13] MEDS: Multivitamin TABLET 1 TAB PO (10:27)
[2024-03-13] MEDS: Gabapentin 100 MG CAPSULE PO ×3 (10:27→21:10)
[2024-03-13] MEDS: Simethicone 80 MG TAB.CHEW PO ×3 (10:27→21:10)
[2024-03-13] MEDS: Sennosides 8.6 MG TABLET 17.2 MG PO ×2 (10:28→21:09)
[2024-03-13] MEDS: Losartan Potassium 50 MG TABLET PO (10:28)
[2024-03-13] MEDS: Docusate Sodium 100 MG CAPSULE PO (10:28)
[2024-03-13] MEDS: lamoTRIgine 25 MG TABLET PO ×2 (10:28→21:09)
[2024-03-13] MEDS: fluPHENAZine HCl 5 MG TABLET PO ×2 (10:28→21:10)
[2024-03-13] MEDS: LORazepam 1 MG TABLET PO ×2 (10:28→21:09)
[2024-03-13] MEDS: levETIRAcetam 1,000 MG TABLET 1000 MG PO ×2 (10:28→21:38)
[2024-03-13] MEDS: Magnesium Oxide 400 MG TABLET PO (10:28)
[2024-03-13] MEDS: Thiamine HCL 100 MG TABLET PO (10:29)
[2024-03-13] MEDS: Apixaban 2.5 MG TABLET PO ×2 (10:29→21:10)
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
[2024-03-13 20:00] VITALS: BP 115/64; PULSE 75; RESP 18; TEMP 36.4; O2SAT 98
[2024-03-13] MEDS: bisacodyL 5 MG TABLET.DR 10 MG PO (21:09)
[2024-03-14] MEDS: traMADoL HCL 50 MG TABLET PO
[2024-03-14] MEDS: Cyclobenzaprine HCl 10 MG TABLET PO
[2024-03-14] MEDS: fluPHENAZine HCl 5 MG TABLET PO ×2 (08:53→20:31)
[2024-03-14] MEDS: lamoTRIgine 25 MG TABLET PO ×2 (08:53→20:32)
[2024-03-14] MEDS: Escitalopram Oxalate 5 MG TABLET PO (08:53)
[2024-03-14] MEDS: Paliperidone ER 9 MG TAB.ER.24 PO (08:53)
[2024-03-14] MEDS: Docusate Sodium 100 MG CAPSULE PO (08:53)
[2024-03-14] MEDS: Apixaban 2.5 MG TABLET PO ×2 (08:53→20:32)
[2024-03-14] MEDS: Gabapentin 100 MG CAPSULE PO ×3 (08:54→20:32)
[2024-03-14] MEDS: LORazepam 1 MG TABLET PO ×2 (08:54→20:31)
[2024-03-14] MEDS: Sennosides 8.6 MG TABLET 17.2 MG PO ×2 (08:55→20:31)
[2024-03-14] MEDS: Famotidine 20 MG TABLET 40 MG PO (08:55)
[2024-03-14] MEDS: Magnesium Oxide 400 MG TABLET PO (08:55)
[2024-03-14] MEDS: Multivitamin TABLET 1 TAB PO (08:55)
[2024-03-14] MEDS: levETIRAcetam 1,000 MG TABLET 1000 MG PO ×2 (08:56→20:32)
[2024-03-14] MEDS: Ferrous Sulfate 324 MG TABLET.DR PO (08:56)
[2024-03-14] MEDS: Thiamine HCL 100 MG TABLET PO (08:57)
[2024-03-14] MEDS: Simethicone 80 MG TAB.CHEW PO ×4 (08:58→20:32)
[2024-03-14 09:00] VITALS: BP 99/55; PULSE 77; RESP 18; TEMP 36.6; O2SAT 97
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
[2024-03-14] MEDS: polyethylene glycoL 3350 17 GM POWD.PACK PO (13:41)
[2024-03-14 20:00] VITALS: BP 109/61; PULSE 92; RESP 18; TEMP 36.4; O2SAT 98
[2024-03-14] MEDS: bisacodyL 5 MG TABLET.DR 10 MG PO (20:31)
[2024-03-14] MEDS: traZODone HCL 50 MG TABLET PO (20:32)
[2024-03-14] MEDS: Melatonin 3 MG TABLET PO ×2 (20:32)
[2024-03-14] MEDS: hydrOXYzine HCL 25 MG TABLET PO ×2 (20:32)
[2024-03-15] MEDS: traZODone HCL 50 MG TABLET PO ×3 (01:34→23:28)
[2024-03-15] MEDS: traMADoL HCL 50 MG TABLET PO ×2 (01:34→23:28)
[2024-03-15] MEDS: Cyclobenzaprine HCl 10 MG TABLET PO (01:34)
[2024-03-15] MEDS: hydrOXYzine HCL 25 MG TABLET PO (03:14)
[2024-03-15] MEDS: Acetaminophen 325 MG TABLET 650 MG PO (03:14)
[2024-03-15 07:50] VITALS: BP 94/51; PULSE 78; RESP 18; TEMP 36.6; O2SAT 98
[2024-03-15] MEDS: Simethicone 80 MG TAB.CHEW PO ×4 (08:56→19:59)
[2024-03-15] MEDS: Sennosides 8.6 MG TABLET 17.2 MG PO ×2 (08:56→20:00)
[2024-03-15] MEDS: Ferrous Sulfate 324 MG TABLET.DR PO (08:56)
[2024-03-15] MEDS: levETIRAcetam 1,000 MG TABLET 1000 MG PO ×2 (08:56→20:00)
[2024-03-15] MEDS: Magnesium Oxide 400 MG TABLET PO (08:56)
[2024-03-15] MEDS: Paliperidone ER 9 MG TAB.ER.24 PO (08:56)
[2024-03-15] MEDS: Docusate Sodium 100 MG CAPSULE PO (08:56)
[2024-03-15] MEDS: Gabapentin 100 MG CAPSULE PO ×3 (08:56→20:00)
[2024-03-15] MEDS: fluPHENAZine HCl 5 MG TABLET PO ×2 (08:56→20:00)
[2024-03-15] MEDS: polyethylene glycoL 3350 17 GM POWD.PACK PO (08:56)
[2024-03-15] MEDS: Thiamine HCL 100 MG TABLET PO (08:57)
[2024-03-15] MEDS: Famotidine 20 MG TABLET 40 MG PO (08:57)
[2024-03-15] MEDS: LORazepam 1 MG TABLET PO (08:57)
[2024-03-15] MEDS: Apixaban 2.5 MG TABLET PO ×2 (08:57→20:00)
[2024-03-15] MEDS: Multivitamin TABLET 1 TAB PO (08:57)
[2024-03-15] MEDS: lamoTRIgine 25 MG TABLET PO ×2 (08:57→20:01)
[2024-03-15] MEDS: Escitalopram Oxalate 5 MG TABLET PO (08:57)
[2024-03-15 09:04] VITALS: BP 94/51; PULSE 78
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
[2024-03-15 20:00] VITALS: BP 105/62; PULSE 84; RESP 17; TEMP 36.4; O2SAT 98
[2024-03-15] MEDS: bisacodyL 5 MG TABLET.DR 10 MG PO (20:02)
[2024-03-15] MEDS: Lidocaine 4 % Patch ADH..PATCH 1 PATCH TRANSDERMA (20:10)
[2024-03-16 08:00] VITALS: BP 111/66; PULSE 85; RESP 16; TEMP 36.4; O2SAT 98
[2024-03-16] MEDS: fluPHENAZine HCl 5 MG TABLET PO ×2 (09:34→21:45)
[2024-03-16] MEDS: Multivitamin TABLET 1 TAB PO (09:34)
[2024-03-16] MEDS: Docusate Sodium 100 MG CAPSULE PO (09:34)
[2024-03-16] MEDS: Magnesium Oxide 400 MG TABLET PO (09:34)
[2024-03-16] MEDS: levETIRAcetam 1,000 MG TABLET 1000 MG PO ×2 (09:34→21:44)
[2024-03-16] MEDS: lamoTRIgine 25 MG TABLET PO ×2 (09:34→21:44)
[2024-03-16] MEDS: Simethicone 80 MG TAB.CHEW PO ×3 (09:34→21:44)
[2024-03-16] MEDS: clonazePAM 0.5 MG TABLET PO ×2 (09:34→21:45)
[2024-03-16] MEDS: Famotidine 20 MG TABLET 40 MG PO (09:35)
[2024-03-16] MEDS: Cyclobenzaprine HCl 10 MG TABLET PO ×3 (09:35→21:45)
[2024-03-16] MEDS: Apixaban 2.5 MG TABLET PO ×2 (09:35→21:44)
[2024-03-16] MEDS: Sennosides 8.6 MG TABLET 17.2 MG PO ×2 (09:35→21:45)
[2024-03-16] MEDS: Escitalopram Oxalate 5 MG TABLET PO (09:35)
[2024-03-16] MEDS: Paliperidone ER 9 MG TAB.ER.24 PO (09:35)
[2024-03-16] MEDS: Gabapentin 100 MG CAPSULE PO ×3 (09:35→21:45)
[2024-03-16] MEDS: Ferrous Sulfate 324 MG TABLET.DR PO (09:35)
[2024-03-16] MEDS: Thiamine HCL 100 MG TABLET PO (09:35)
[2024-03-16] MEDS: hydrOXYzine HCL 25 MG TABLET PO ×3 (09:35→21:45)
[2024-03-16] MEDS: polyethylene glycoL 3350 17 GM POWD.PACK PO (09:36)
[2024-03-16] MEDS: Metoprolol Succinate ER 50 MG TAB.ER.24H PO (09:36)
[2024-03-16] MEDS: Losartan Potassium 50 MG TABLET PO (09:36)
[2024-03-16] MEDS: Lidocaine 4 % Patch ADH..PATCH 1 PATCH TRANSDERMA (09:57)
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
[2024-03-16] MEDS: bisacodyL 5 MG TABLET.DR 10 MG PO (21:44)
[2024-03-16] MEDS: Mirtazapine 7.5 MG TABLET PO (21:45)
[2024-03-16] MEDS: traZODone HCL 50 MG TABLET PO (21:45)
[2024-03-16] MEDS: Melatonin 3 MG TABLET PO (21:45)
[2024-03-16] MEDS: traMADoL HCL 50 MG TABLET PO (21:45)
[2024-03-17 08:00] VITALS: BP 124/66; PULSE 67; RESP 16; TEMP 36.2; O2SAT 98
[2024-03-17] MEDS: polyethylene glycoL 3350 17 GM POWD.PACK PO (09:58)
[2024-03-17] MEDS: Magnesium Oxide 400 MG TABLET PO (09:59)
[2024-03-17] MEDS: clonazePAM 0.5 MG TABLET PO (09:59)
[2024-03-17] MEDS: Simethicone 80 MG TAB.CHEW PO ×3 (09:59→20:50)
[2024-03-17] MEDS: Paliperidone ER 9 MG TAB.ER.24 PO (09:59)
[2024-03-17] MEDS: lamoTRIgine 25 MG TABLET PO ×2 (09:59→20:49)
[2024-03-17] MEDS: Thiamine HCL 100 MG TABLET PO (09:59)
[2024-03-17] MEDS: Famotidine 20 MG TABLET 40 MG PO (09:59)
[2024-03-17] MEDS: fluPHENAZine HCl 5 MG TABLET PO ×2 (10:00→20:50)
[2024-03-17] MEDS: Escitalopram Oxalate 5 MG TABLET PO (10:00)
[2024-03-17] MEDS: Ferrous Sulfate 324 MG TABLET.DR PO (10:00)
[2024-03-17] MEDS: Gabapentin 100 MG CAPSULE PO ×3 (10:00→20:49)
[2024-03-17] MEDS: levETIRAcetam 1,000 MG TABLET 1000 MG PO ×2 (10:00→20:50)
[2024-03-17] MEDS: Sennosides 8.6 MG TABLET 17.2 MG PO ×2 (10:00→20:49)
[2024-03-17] MEDS: Losartan Potassium 50 MG TABLET PO (10:00)
[2024-03-17] MEDS: Multivitamin TABLET 1 TAB PO (10:00)
[2024-03-17] MEDS: Apixaban 2.5 MG TABLET PO ×2 (10:00→20:50)
[2024-03-17] MEDS: Cyclobenzaprine HCl 10 MG TABLET PO ×2 (10:00→15:20)
[2024-03-17] MEDS: Metoprolol Succinate ER 50 MG TAB.ER.24H PO (10:01)
[2024-03-17] MEDS: Docusate Sodium 100 MG CAPSULE PO (10:30)
[2024-03-17] MEDS: hydrOXYzine HCL 25 MG TABLET PO (15:19)
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
[2024-03-17] MEDS: Mirtazapine 7.5 MG TABLET PO (20:49)
[2024-03-17] MEDS: bisacodyL 5 MG TABLET.DR 10 MG PO (20:50)
[2024-03-18] MEDS: Cyclobenzaprine HCl 10 MG TABLET PO ×3 (02:42→20:15)
[2024-03-18] MEDS: traZODone HCL 50 MG TABLET PO ×2 (02:42→21:16)
[2024-03-18] MEDS: Acetaminophen 325 MG TABLET 650 MG PO ×2 (05:54→15:56)
[2024-03-18] MEDS: polyethylene glycoL 3350 17 GM POWD.PACK PO (10:05)
[2024-03-18] MEDS: Sennosides 8.6 MG TABLET 17.2 MG PO ×2 (10:06→20:14)
[2024-03-18] MEDS: Escitalopram Oxalate 5 MG TABLET PO (10:06)
[2024-03-18] MEDS: Magnesium Oxide 400 MG TABLET PO (10:06)
[2024-03-18] MEDS: Ferrous Sulfate 324 MG TABLET.DR PO (10:06)
[2024-03-18] MEDS: Paliperidone ER 9 MG TAB.ER.24 PO (10:07)
[2024-03-18] MEDS: Docusate Sodium 100 MG CAPSULE PO (10:07)
[2024-03-18] MEDS: Famotidine 20 MG TABLET 40 MG PO (10:07)
[2024-03-18] MEDS: Multivitamin TABLET 1 TAB PO (10:07)
[2024-03-18] MEDS: Gabapentin 100 MG CAPSULE PO ×3 (10:07→20:14)
[2024-03-18] MEDS: Simethicone 80 MG TAB.CHEW PO ×3 (10:07→20:14)
[2024-03-18] MEDS: hydrOXYzine HCL 25 MG TABLET PO ×2 (10:07→22:29)
[2024-03-18] MEDS: levETIRAcetam 1,000 MG TABLET 1000 MG PO ×2 (10:08→20:14)
[2024-03-18] MEDS: lamoTRIgine 25 MG TABLET PO ×2 (10:08→20:14)
[2024-03-18] MEDS: Losartan Potassium 50 MG TABLET PO (10:08)
[2024-03-18] MEDS: fluPHENAZine HCl 5 MG TABLET PO ×2 (10:08→20:15)
[2024-03-18] MEDS: clonazePAM 0.5 MG TABLET PO ×2 (10:10→22:31)
[2024-03-18] MEDS: Apixaban 2.5 MG TABLET PO ×2 (10:10→20:15)
[2024-03-18] MEDS: Thiamine HCL 100 MG TABLET PO (10:13)
[2024-03-18] MEDS: Metoprolol Succinate ER 50 MG TAB.ER.24H PO (10:13)
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
[2024-03-18] MEDS: Mirtazapine 7.5 MG TABLET PO (20:14)
[2024-03-18] MEDS: bisacodyL 5 MG TABLET.DR 10 MG PO (20:15)
--- NOTE | 2024-03-19 06:26 | PC.NURSE ---
Esther repeatedly asked what medications she would be getting for sleep, and fretted that she would not be able to sleep this shift. She had multiple PRNs, to little effect. However, this policy writer typist did notice that Esther was sleeping at times, but would rouse and come out to the nurse's station to complain that she couldn't sleep. This policy writer typist attempted to educated Esther regarding sleep hygiene (getting out of bed when not able to sleep, only returning to bed to sleep,) but Esther was not able to absorb any of this education. When Esther was up, she was clearly very fatigued, with her eyelids drooping and head nodding.
[2024-03-19 08:00] VITALS: BP 108/56; PULSE 99; RESP 18; TEMP 36.4; O2SAT 97
[2024-03-19] MEDS: Lidocaine 4 % Patch ADH..PATCH 1 PATCH TRANSDERMA (09:00)
[2024-03-19 09:02] VITALS: BP 108/56
[2024-03-19] MEDS: polyethylene glycoL 3350 17 GM POWD.PACK PO (09:02)
[2024-03-19] MEDS: Losartan Potassium 50 MG TABLET PO (09:02)
[2024-03-19] MEDS: Paliperidone ER 9 MG TAB.ER.24 PO (09:03)
[2024-03-19] MEDS: Escitalopram Oxalate 5 MG TABLET PO (09:03)
[2024-03-19] MEDS: lamoTRIgine 25 MG TABLET PO ×2 (09:03→21:26)
[2024-03-19] MEDS: Famotidine 20 MG TABLET 40 MG PO (09:03)
[2024-03-19] MEDS: Thiamine HCL 100 MG TABLET PO (09:03)
[2024-03-19] MEDS: fluPHENAZine HCl 5 MG TABLET PO ×2 (09:03→21:27)
[2024-03-19] MEDS: Multivitamin TABLET 1 TAB PO (09:03)
[2024-03-19] MEDS: Sennosides 8.6 MG TABLET 17.2 MG PO ×2 (09:03→21:26)
[2024-03-19] MEDS: Apixaban 2.5 MG TABLET PO ×2 (09:03→21:27)
[2024-03-19] MEDS: levETIRAcetam 1,000 MG TABLET 1000 MG PO ×2 (09:03→21:26)
[2024-03-19] MEDS: Magnesium Oxide 400 MG TABLET PO (09:03)
[2024-03-19 09:04] VITALS: BP 108/56; PULSE 99
[2024-03-19] MEDS: Ferrous Sulfate 324 MG TABLET.DR PO (09:04)
[2024-03-19] MEDS: Metoprolol Succinate ER 50 MG TAB.ER.24H PO (09:04)
[2024-03-19] MEDS: Docusate Sodium 100 MG CAPSULE PO (09:05)
[2024-03-19] MEDS: Gabapentin 100 MG CAPSULE PO ×3 (09:05→21:27)
[2024-03-19] MEDS: Simethicone 80 MG TAB.CHEW PO ×3 (09:05→21:26)
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
[2024-03-19] MEDS: Acetaminophen 325 MG TABLET 650 MG PO (14:22)
[2024-03-19 20:00] VITALS: BP 136/71; PULSE 75; RESP 18; TEMP 36.4; O2SAT 100
[2024-03-19] MEDS: bisacodyL 5 MG TABLET.DR 10 MG PO (21:26)
[2024-03-19] MEDS: traZODone HCL 50 MG TABLET PO (21:26)
[2024-03-19] MEDS: Melatonin 3 MG TABLET PO (21:26)
[2024-03-19] MEDS: clonazePAM 0.5 MG TABLET PO (21:27)
[2024-03-19] MEDS: Mirtazapine 7.5 MG TABLET 11.25 MG PO (21:27)
[2024-03-20 08:00] VITALS: BP 119/56; PULSE 76; RESP 20; TEMP 36.3; O2SAT 95
[2024-03-20] MEDS: Lidocaine 4 % Patch ADH..PATCH 1 PATCH TRANSDERMA (10:14)
[2024-03-20] MEDS: polyethylene glycoL 3350 17 GM POWD.PACK PO (10:14)
[2024-03-20] MEDS: Docusate Sodium 100 MG CAPSULE PO (10:15)
[2024-03-20] MEDS: Magnesium Oxide 400 MG TABLET PO (10:15)
[2024-03-20] MEDS: Apixaban 2.5 MG TABLET PO ×2 (10:15→20:11)
[2024-03-20] MEDS: Paliperidone ER 9 MG TAB.ER.24 PO (10:15)
[2024-03-20] MEDS: lamoTRIgine 25 MG TABLET PO ×2 (10:15→20:10)
[2024-03-20] MEDS: Losartan Potassium 50 MG TABLET PO (10:15)
[2024-03-20] MEDS: Sennosides 8.6 MG TABLET 17.2 MG PO ×2 (10:15→20:10)
[2024-03-20] MEDS: fluPHENAZine HCl 5 MG TABLET PO ×2 (10:15→20:10)
[2024-03-20] MEDS: Thiamine HCL 100 MG TABLET PO (10:15)
[2024-03-20] MEDS: Multivitamin TABLET 1 TAB PO (10:16)
[2024-03-20] MEDS: Ferrous Sulfate 324 MG TABLET.DR PO (10:16)
[2024-03-20] MEDS: Gabapentin 100 MG CAPSULE PO ×3 (10:16→20:10)
[2024-03-20] MEDS: Simethicone 80 MG TAB.CHEW PO ×3 (10:16→20:10)
[2024-03-20] MEDS: levETIRAcetam 1,000 MG TABLET 1000 MG PO ×2 (10:16→20:11)
[2024-03-20] MEDS: Escitalopram Oxalate 5 MG TABLET PO (10:16)
[2024-03-20] MEDS: Metoprolol Succinate ER 50 MG TAB.ER.24H PO (10:16)
[2024-03-20] MEDS: Famotidine 20 MG TABLET 40 MG PO (10:16)
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
[2024-03-20 20:00] VITALS: BP 149/65; PULSE 81; RESP 16; TEMP 36.4; O2SAT 97
[2024-03-20] MEDS: Acetaminophen 325 MG TABLET 650 MG PO (20:10)
[2024-03-20] MEDS: Mirtazapine 7.5 MG TABLET 11.25 MG PO (20:10)
[2024-03-20] MEDS: clonazePAM 0.5 MG TABLET PO (20:11)
[2024-03-20] MEDS: bisacodyL 5 MG TABLET.DR 10 MG PO (20:11)
[2024-03-20] MEDS: Melatonin 3 MG TABLET PO (22:53)
[2024-03-20] MEDS: traZODone HCL 50 MG TABLET PO (22:53)
[2024-03-21 09:19] VITALS: BP 130/63; PULSE 81; RESP 20; TEMP 36.4; O2SAT 96
[2024-03-21] MEDS: Lidocaine 4 % Patch ADH..PATCH 1 PATCH TRANSDERMA (09:20)
[2024-03-21 09:21] VITALS: BP 130/63
[2024-03-21] MEDS: Ferrous Sulfate 324 MG TABLET.DR PO (09:21)
[2024-03-21] MEDS: Thiamine HCL 100 MG TABLET PO (09:21)
[2024-03-21] MEDS: Docusate Sodium 100 MG CAPSULE PO (09:21)
[2024-03-21] MEDS: Losartan Potassium 50 MG TABLET PO (09:21)
[2024-03-21 09:22] VITALS: BP 130/63
[2024-03-21] MEDS: Gabapentin 100 MG CAPSULE PO ×3 (09:22→21:41)
[2024-03-21] MEDS: Metoprolol Succinate ER 50 MG TAB.ER.24H PO (09:22)
[2024-03-21] MEDS: Escitalopram Oxalate 5 MG TABLET PO (09:23)
[2024-03-21] MEDS: Sennosides 8.6 MG TABLET 17.2 MG PO ×2 (09:23→21:41)
[2024-03-21] MEDS: fluPHENAZine HCl 5 MG TABLET PO ×2 (09:23→21:42)
[2024-03-21] MEDS: Apixaban 2.5 MG TABLET PO ×2 (09:24→21:41)
[2024-03-21] MEDS: Multivitamin TABLET 1 TAB PO (09:24)
[2024-03-21] MEDS: Magnesium Oxide 400 MG TABLET PO (09:24)
[2024-03-21] MEDS: Paliperidone ER 9 MG TAB.ER.24 PO (09:24)
[2024-03-21] MEDS: Famotidine 20 MG TABLET 40 MG PO (09:24)
[2024-03-21] MEDS: lamoTRIgine 25 MG TABLET PO ×2 (09:25→21:41)
[2024-03-21] MEDS: Simethicone 80 MG TAB.CHEW PO ×3 (09:25→21:41)
[2024-03-21] MEDS: levETIRAcetam 1,000 MG TABLET 1000 MG PO ×2 (09:25→21:41)
[2024-03-21] MEDS: Acetaminophen 325 MG TABLET 650 MG PO (09:35)
[2024-03-21] MEDS: Cyclobenzaprine HCl 10 MG TABLET PO (09:35)
[2024-03-21 14:07] VITALS: BP 112/53; PULSE 67; RESP 17; O2SAT 98
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
[2024-03-21 20:00] VITALS: BP 110/60; PULSE 77; RESP 18; TEMP 36.4; O2SAT 97
[2024-03-21] MEDS: Mirtazapine 7.5 MG TABLET 11.25 MG PO (21:39)
[2024-03-21] MEDS: bisacodyL 5 MG TABLET.DR 10 MG PO (21:39)
[2024-03-21] MEDS: traZODone HCL 50 MG TABLET PO (21:41)
[2024-03-21] MEDS: clonazePAM 0.5 MG TABLET PO (21:41)
[2024-03-21] MEDS: Melatonin 3 MG TABLET PO (21:42)
[2024-03-22] MEDS: Losartan Potassium 50 MG TABLET PO (08:51)
[2024-03-22] MEDS: Gabapentin 100 MG CAPSULE PO ×3 (08:51→22:22)
[2024-03-22] MEDS: Metoprolol Succinate ER 50 MG TAB.ER.24H PO (08:51)
[2024-03-22] MEDS: fluPHENAZine HCl 5 MG TABLET PO ×2 (08:51→20:25)
[2024-03-22] MEDS: lamoTRIgine 25 MG TABLET PO ×2 (08:52→20:26)
[2024-03-22] MEDS: Magnesium Oxide 400 MG TABLET PO (08:52)
[2024-03-22] MEDS: Docusate Sodium 100 MG CAPSULE PO (08:52)
[2024-03-22] MEDS: Apixaban 2.5 MG TABLET PO ×3 (08:52→22:13)
[2024-03-22] MEDS: Famotidine 20 MG TABLET 40 MG PO (08:52)
[2024-03-22] MEDS: Escitalopram Oxalate 5 MG TABLET PO (08:52)
[2024-03-22] MEDS: Sennosides 8.6 MG TABLET 17.2 MG PO ×2 (08:52→20:26)
[2024-03-22] MEDS: Thiamine HCL 100 MG TABLET PO (08:52)
[2024-03-22] MEDS: Simethicone 80 MG TAB.CHEW PO ×3 (08:52→22:17)
[2024-03-22] MEDS: levETIRAcetam 1,000 MG TABLET 1000 MG PO ×2 (08:52→20:27)
[2024-03-22] MEDS: Ferrous Sulfate 324 MG TABLET.DR PO (08:52)
[2024-03-22] MEDS: Multivitamin TABLET 1 TAB PO (08:52)
[2024-03-22] MEDS: Paliperidone ER 9 MG TAB.ER.24 PO (08:52)
[2024-03-22 09:02] VITALS: BP 126/61; PULSE 80; RESP 18; TEMP 36.4; O2SAT 96
[2024-03-22] MEDS: Lidocaine 4 % Patch ADH..PATCH 1 PATCH TRANSDERMA (10:24)
[2024-03-22] MEDS: Acetaminophen 325 MG TABLET 650 MG PO (12:45)
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
[2024-03-22 20:00] VITALS: BP 107/55; PULSE 80; RESP 18; TEMP 36.4; O2SAT 99
[2024-03-22] MEDS: Mirtazapine 7.5 MG TABLET 11.25 MG PO (20:26)
[2024-03-22] MEDS: Melatonin 3 MG TABLET PO (20:26)
[2024-03-22] MEDS: Cyclobenzaprine HCl 10 MG TABLET PO (20:27)
[2024-03-22] MEDS: traMADoL HCL 50 MG TABLET PO (20:27)
[2024-03-22] MEDS: bisacodyL 5 MG TABLET.DR 10 MG PO (20:27)
[2024-03-22] MEDS: clonazePAM 0.5 MG TABLET PO (20:27)
[2024-03-22] MEDS: hydrOXYzine HCL 25 MG TABLET PO (20:28)
[2024-03-22] MEDS: traZODone HCL 50 MG TABLET PO (20:33)
[2024-03-23 07:56] VITALS: BP 112/56; PULSE 76; RESP 16; TEMP 36.3; O2SAT 96
[2024-03-23] MEDS: polyethylene glycoL 3350 17 GM POWD.PACK PO (08:33)
[2024-03-23 08:34] VITALS: BP 112/56; PULSE 76
[2024-03-23] MEDS: Docusate Sodium 100 MG CAPSULE PO (08:34)
[2024-03-23] MEDS: Metoprolol Succinate ER 50 MG TAB.ER.24H PO (08:34)
[2024-03-23] MEDS: Gabapentin 100 MG CAPSULE PO ×3 (08:34→20:32)
[2024-03-23 08:35] VITALS: BP 122/56
[2024-03-23] MEDS: Sennosides 8.6 MG TABLET 17.2 MG PO ×2 (08:35→20:32)
[2024-03-23] MEDS: levETIRAcetam 1,000 MG TABLET 1000 MG PO ×2 (08:35→20:33)
[2024-03-23] MEDS: Simethicone 80 MG TAB.CHEW PO ×4 (08:35→20:32)
[2024-03-23] MEDS: Ferrous Sulfate 324 MG TABLET.DR PO (08:35)
[2024-03-23] MEDS: Multivitamin TABLET 1 TAB PO (08:35)
[2024-03-23] MEDS: fluPHENAZine HCl 5 MG TABLET PO ×2 (08:35→20:32)
[2024-03-23] MEDS: Losartan Potassium 50 MG TABLET PO (08:35)
[2024-03-23] MEDS: Famotidine 20 MG TABLET 40 MG PO (08:35)
[2024-03-23] MEDS: Escitalopram Oxalate 5 MG TABLET PO (08:35)
[2024-03-23] MEDS: lamoTRIgine 25 MG TABLET PO ×2 (08:35→20:33)
[2024-03-23] MEDS: Paliperidone ER 9 MG TAB.ER.24 PO (08:37)
[2024-03-23] MEDS: Thiamine HCL 100 MG TABLET PO (08:37)
[2024-03-23] MEDS: Magnesium Oxide 400 MG TABLET PO (08:37)
[2024-03-23] MEDS: Acetaminophen 325 MG TABLET 650 MG PO ×2 (09:05→17:29)
[2024-03-23] MEDS: Lidocaine 4 % Patch ADH..PATCH 1 PATCH TRANSDERMA (09:05)
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
[2024-03-23 20:00] VITALS: BP 114/56; PULSE 77; RESP 16; TEMP 36.4; O2SAT 95
[2024-03-23] MEDS: bisacodyL 5 MG TABLET.DR 10 MG PO (20:33)
[2024-03-23] MEDS: Mirtazapine 7.5 MG TABLET 11.25 MG PO (20:33)
[2024-03-23] MEDS: Apixaban 2.5 MG TABLET PO (20:33)
[2024-03-24] MEDS: Melatonin 3 MG TABLET PO (00:17)
[2024-03-24] MEDS: clonazePAM 0.5 MG TABLET PO ×3 (00:17→20:40)
[2024-03-24] MEDS: hydrOXYzine HCL 25 MG TABLET PO (00:17)
[2024-03-24 08:00] VITALS: BP 117/58; PULSE 90; RESP 16; TEMP 36.6; O2SAT 98
[2024-03-24] MEDS: Lidocaine 4 % Patch ADH..PATCH 1 PATCH TRANSDERMA (08:36)
[2024-03-24] MEDS: polyethylene glycoL 3350 17 GM POWD.PACK PO (08:38)
[2024-03-24] MEDS: Acetaminophen 325 MG TABLET 650 MG PO ×2 (08:39→18:09)
[2024-03-24 08:40] VITALS: BP 134/82; PULSE 85
[2024-03-24] MEDS: lamoTRIgine 25 MG TABLET PO ×2 (08:40→20:40)
[2024-03-24] MEDS: Sennosides 8.6 MG TABLET 17.2 MG PO ×2 (08:40→20:40)
[2024-03-24] MEDS: Simethicone 80 MG TAB.CHEW PO ×4 (08:40→20:40)
[2024-03-24] MEDS: Docusate Sodium 100 MG CAPSULE PO (08:40)
[2024-03-24] MEDS: Metoprolol Succinate ER 50 MG TAB.ER.24H PO (08:40)
[2024-03-24] MEDS: Famotidine 20 MG TABLET 40 MG PO (08:41)
[2024-03-24] MEDS: Multivitamin TABLET 1 TAB PO (08:41)
[2024-03-24] MEDS: fluPHENAZine HCl 5 MG TABLET PO ×2 (08:41→20:40)
[2024-03-24] MEDS: Escitalopram Oxalate 5 MG TABLET PO (08:42)
[2024-03-24] MEDS: levETIRAcetam 1,000 MG TABLET 1000 MG PO ×2 (08:42→20:40)
[2024-03-24] MEDS: Magnesium Oxide 400 MG TABLET PO (08:42)
[2024-03-24] MEDS: Gabapentin 100 MG CAPSULE PO ×3 (08:42→20:41)
[2024-03-24 08:43] VITALS: BP 134/82
[2024-03-24] MEDS: Losartan Potassium 50 MG TABLET PO (08:43)
[2024-03-24] MEDS: Ferrous Sulfate 324 MG TABLET.DR PO (08:43)
[2024-03-24] MEDS: Thiamine HCL 100 MG TABLET PO (08:43)
[2024-03-24] MEDS: Paliperidone ER 9 MG TAB.ER.24 PO (08:43)
[2024-03-24] MEDS: Apixaban 2.5 MG TABLET PO ×2 (08:43→20:40)
[2024-03-24] MEDS: Cyclobenzaprine HCl 10 MG TABLET PO (10:17)
[2024-03-24 12:45] VITALS: BP 140/80; PULSE 111
[2024-03-24] MEDS: traMADoL HCL 50 MG TABLET PO (15:27)
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
[2024-03-24] MEDS: bisacodyL 5 MG TABLET.DR 10 MG PO (20:40)
[2024-03-24] MEDS: traZODone HCL 50 MG TABLET PO (20:40)
[2024-03-24] MEDS: Mirtazapine 7.5 MG TABLET 11.25 MG PO (20:41)
[2024-03-25 08:14] VITALS: BP 109/61; PULSE 74; RESP 16; TEMP 36.4; O2SAT 96
[2024-03-25 08:47] VITALS: BP 109/62; PULSE 74
[2024-03-25] MEDS: levETIRAcetam 1,000 MG TABLET 1000 MG PO ×2 (08:47→20:08)
[2024-03-25] MEDS: Thiamine HCL 100 MG TABLET PO (08:47)
[2024-03-25] MEDS: Gabapentin 100 MG CAPSULE PO ×3 (08:47→20:07)
[2024-03-25] MEDS: lamoTRIgine 25 MG TABLET PO ×2 (08:47→20:08)
[2024-03-25] MEDS: Sennosides 8.6 MG TABLET 17.2 MG PO ×2 (08:47→20:07)
[2024-03-25] MEDS: Metoprolol Succinate ER 50 MG TAB.ER.24H PO (08:47)
[2024-03-25] MEDS: Docusate Sodium 100 MG CAPSULE PO (08:47)
[2024-03-25] MEDS: Paliperidone ER 9 MG TAB.ER.24 PO (08:47)
[2024-03-25 08:48] VITALS: BP 109/62
[2024-03-25] MEDS: Losartan Potassium 50 MG TABLET PO (08:48)
[2024-03-25] MEDS: Apixaban 2.5 MG TABLET PO ×2 (08:48→20:08)
[2024-03-25] MEDS: Multivitamin TABLET 1 TAB PO (08:48)
[2024-03-25] MEDS: Famotidine 20 MG TABLET 40 MG PO (08:48)
[2024-03-25] MEDS: Ferrous Sulfate 324 MG TABLET.DR PO (08:48)
[2024-03-25] MEDS: Escitalopram Oxalate 5 MG TABLET PO (08:48)
[2024-03-25] MEDS: Magnesium Oxide 400 MG TABLET PO (08:48)
[2024-03-25] MEDS: Simethicone 80 MG TAB.CHEW PO ×3 (08:48→20:09)
[2024-03-25] MEDS: fluPHENAZine HCl 5 MG TABLET PO ×2 (08:48→20:07)
[2024-03-25] MEDS: Lidocaine 4 % Patch ADH..PATCH 1 PATCH TRANSDERMA (08:51)
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
[2024-03-25 20:00] VITALS: BP 136/89; PULSE 80; RESP 16; TEMP 36.4; O2SAT 99
[2024-03-25] MEDS: clonazePAM 0.5 MG TABLET PO (20:07)
[2024-03-25] MEDS: bisacodyL 5 MG TABLET.DR 10 MG PO (20:07)
[2024-03-25] MEDS: Mirtazapine 7.5 MG TABLET 11.25 MG PO (20:08)
[2024-03-25] MEDS: Cyclobenzaprine HCl 10 MG TABLET PO (20:08)
[2024-03-26] MEDS: traZODone HCL 50 MG TABLET PO ×2 (02:22→23:34)
[2024-03-26 07:00] VITALS: BMI 24.6
[2024-03-26 08:07] VITALS: BP 116/62; PULSE 73; RESP 16; TEMP 36.4; O2SAT 96
[2024-03-26 09:52] VITALS: BP 116/62
[2024-03-26] MEDS: Losartan Potassium 50 MG TABLET PO (09:52)
[2024-03-26] MEDS: Thiamine HCL 100 MG TABLET PO (09:52)
[2024-03-26] MEDS: Gabapentin 100 MG CAPSULE PO ×3 (09:53→20:57)
[2024-03-26] MEDS: Sennosides 8.6 MG TABLET 17.2 MG PO ×2 (09:53→20:57)
[2024-03-26] MEDS: Magnesium Oxide 400 MG TABLET PO (09:53)
[2024-03-26] MEDS: Simethicone 80 MG TAB.CHEW PO ×4 (09:53→20:56)
[2024-03-26] MEDS: levETIRAcetam 1,000 MG TABLET 1000 MG PO ×2 (09:53→20:57)
[2024-03-26] MEDS: Multivitamin TABLET 1 TAB PO (09:53)
[2024-03-26] MEDS: Paliperidone ER 9 MG TAB.ER.24 PO (09:53)
[2024-03-26 09:54] VITALS: BP 116/62; PULSE 73
[2024-03-26] MEDS: Apixaban 2.5 MG TABLET PO ×2 (09:54→20:57)
[2024-03-26] MEDS: Metoprolol Succinate ER 50 MG TAB.ER.24H PO (09:54)
[2024-03-26] MEDS: Ferrous Sulfate 324 MG TABLET.DR PO (09:54)
[2024-03-26] MEDS: Docusate Sodium 100 MG CAPSULE PO (09:54)
[2024-03-26] MEDS: lamoTRIgine 25 MG TABLET PO ×2 (09:54→20:57)
[2024-03-26] MEDS: Famotidine 20 MG TABLET 40 MG PO (09:54)
[2024-03-26] MEDS: fluPHENAZine HCl 5 MG TABLET PO ×2 (09:54→20:56)
[2024-03-26] MEDS: Escitalopram Oxalate 5 MG TABLET PO (09:54)
[2024-03-26] MEDS: Lidocaine 4 % Patch ADH..PATCH 1 PATCH TRANSDERMA (09:55)
[2024-03-26] MEDS: Acetaminophen 325 MG TABLET 650 MG PO (10:06)
[2024-03-26] MEDS: Milk of Magnesia 30 ML ORAL.SUSP PO (10:24)
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
[2024-03-26] MEDS: traMADoL HCL 50 MG TABLET PO (15:54)
[2024-03-26] MEDS: clonazePAM 0.5 MG TABLET PO (16:59)
[2024-03-26 20:05] VITALS: RESP 18
[2024-03-26] MEDS: bisacodyL 5 MG TABLET.DR 10 MG PO (20:57)
[2024-03-26] MEDS: Mirtazapine 7.5 MG TABLET 11.25 MG PO (20:57)
[2024-03-26] MEDS: hydrOXYzine HCL 25 MG TABLET PO (23:34)
[2024-03-27 08:00] VITALS: BP 110/60; PULSE 72; RESP 16; TEMP 36.3; O2SAT 98
[2024-03-27] MEDS: Paliperidone ER 9 MG TAB.ER.24 PO (08:38)
[2024-03-27] MEDS: Losartan Potassium 50 MG TABLET PO (08:38)
[2024-03-27] MEDS: Magnesium Oxide 400 MG TABLET PO (08:39)
[2024-03-27] MEDS: Gabapentin 100 MG CAPSULE PO ×3 (08:39→21:24)
[2024-03-27] MEDS: Docusate Sodium 100 MG CAPSULE PO (08:39)
[2024-03-27] MEDS: Multivitamin TABLET 1 TAB PO (08:39)
[2024-03-27] MEDS: Thiamine HCL 100 MG TABLET PO (08:39)
[2024-03-27] MEDS: Famotidine 20 MG TABLET 40 MG PO (08:39)
[2024-03-27] MEDS: Ferrous Sulfate 324 MG TABLET.DR PO (08:39)
[2024-03-27] MEDS: Escitalopram Oxalate 5 MG TABLET PO (08:39)
[2024-03-27] MEDS: fluPHENAZine HCl 5 MG TABLET PO ×2 (08:39→21:22)
[2024-03-27] MEDS: Acetaminophen 325 MG TABLET 650 MG PO (08:39)
[2024-03-27] MEDS: Apixaban 2.5 MG TABLET PO ×2 (08:39→21:22)
[2024-03-27] MEDS: Metoprolol Succinate ER 50 MG TAB.ER.24H PO (08:40)
[2024-03-27] MEDS: lamoTRIgine 25 MG TABLET PO ×2 (08:40→21:22)
[2024-03-27] MEDS: levETIRAcetam 1,000 MG TABLET 1000 MG PO ×2 (08:40→21:22)
[2024-03-27] MEDS: Lidocaine 4 % Patch ADH..PATCH 1 PATCH TRANSDERMA (08:40)
[2024-03-27] MEDS: Sennosides 8.6 MG TABLET 17.2 MG PO ×2 (08:40→21:23)
[2024-03-27] MEDS: polyethylene glycoL 3350 17 GM POWD.PACK PO (08:40)
[2024-03-27] MEDS: Simethicone 80 MG TAB.CHEW PO ×4 (08:40→21:22)
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
[2024-03-27] MEDS: Cyclobenzaprine HCl 10 MG TABLET PO ×2 (11:09→21:31)
[2024-03-27] MEDS: Meclizine HCl 25 MG TABLET 12.5 MG PO (11:37)
[2024-03-27] MEDS: Meclizine HCl 12.5 MG TABLET PO (17:38)
[2024-03-27 20:15] VITALS: BP 128/68; PULSE 71; RESP 16; TEMP 36.4; O2SAT 100
[2024-03-27] MEDS: Mirtazapine 7.5 MG TABLET 11.25 MG PO (21:22)
[2024-03-27] MEDS: bisacodyL 5 MG TABLET.DR 10 MG PO (21:23)
[2024-03-27] MEDS: traMADoL HCL 50 MG TABLET PO (21:31)
[2024-03-27] MEDS: clonazePAM 0.5 MG TABLET PO (23:03)
[2024-03-27] MEDS: Melatonin 3 MG TABLET PO (23:47)
[2024-03-27] MEDS: hydrOXYzine HCL 25 MG TABLET PO (23:47)
[2024-03-28] MEDS: traZODone HCL 50 MG TABLET PO ×2 (01:17→20:49)
[2024-03-28] MEDS: Acetaminophen 325 MG TABLET 650 MG PO ×2 (03:33→13:06)
[2024-03-28] MEDS: Cyclobenzaprine HCl 10 MG TABLET PO ×3 (03:33→20:49)
[2024-03-28 08:58] VITALS: BP 127/62; PULSE 68; RESP 16; TEMP 36.4; O2SAT 97
[2024-03-28] MEDS: Ferrous Sulfate 324 MG TABLET.DR PO (08:59)
[2024-03-28] MEDS: polyethylene glycoL 3350 17 GM POWD.PACK PO (08:59)
[2024-03-28] MEDS: Metoprolol Succinate ER 50 MG TAB.ER.24H PO (08:59)
[2024-03-28] MEDS: Apixaban 2.5 MG TABLET PO ×2 (08:59→20:48)
[2024-03-28] MEDS: Lidocaine 4 % Patch ADH..PATCH 1 PATCH TRANSDERMA (08:59)
[2024-03-28] MEDS: Escitalopram Oxalate 5 MG TABLET PO (08:59)
[2024-03-28] MEDS: Multivitamin TABLET 1 TAB PO (08:59)
[2024-03-28] MEDS: Thiamine HCL 100 MG TABLET PO (08:59)
[2024-03-28] MEDS: Magnesium Oxide 400 MG TABLET PO (08:59)
[2024-03-28] MEDS: Losartan Potassium 50 MG TABLET PO (08:59)
[2024-03-28] MEDS: Paliperidone ER 9 MG TAB.ER.24 PO (08:59)
[2024-03-28] MEDS: Famotidine 20 MG TABLET 40 MG PO (09:00)
[2024-03-28] MEDS: Docusate Sodium 100 MG CAPSULE PO (09:00)
[2024-03-28] MEDS: fluPHENAZine HCl 5 MG TABLET PO ×2 (09:00→20:48)
[2024-03-28] MEDS: Simethicone 80 MG TAB.CHEW PO ×4 (09:00→20:48)
[2024-03-28] MEDS: levETIRAcetam 1,000 MG TABLET 1000 MG PO ×2 (09:00→20:48)
[2024-03-28] MEDS: Sennosides 8.6 MG TABLET 17.2 MG PO ×2 (09:00→20:50)
[2024-03-28] MEDS: Gabapentin 100 MG CAPSULE PO ×3 (09:00→20:48)
[2024-03-28] MEDS: lamoTRIgine 25 MG TABLET PO ×2 (09:00→20:49)
[2024-03-28] MEDS: Meclizine HCl 12.5 MG TABLET PO (09:10)
[2024-03-28] MEDS: hydrOXYzine HCL 25 MG TABLET PO ×2 (09:10→20:49)
[2024-03-28] MEDS: traMADoL HCL 50 MG TABLET PO ×3 (09:11→20:49)
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
[2024-03-28] MEDS: clonazePAM 0.5 MG TABLET PO (13:03)
[2024-03-28 20:00] VITALS: BP 102/53; PULSE 71; RESP 20; TEMP 36.5; O2SAT 98
[2024-03-28] MEDS: bisacodyL 5 MG TABLET.DR 10 MG PO (20:48)
[2024-03-28] MEDS: Mirtazapine 7.5 MG TABLET 11.25 MG PO (20:49)
[2024-03-28] MEDS: Melatonin 3 MG TABLET PO (20:49)
[2024-03-29] MEDS: Acetaminophen 325 MG TABLET 650 MG PO ×2 (00:07→08:45)
[2024-03-29] MEDS: clonazePAM 0.5 MG TABLET PO (00:08)
[2024-03-29 08:41] VITALS: BP 109/60; PULSE 63; RESP 16; TEMP 36.4; O2SAT 98
[2024-03-29] MEDS: levETIRAcetam 1,000 MG TABLET 1000 MG PO ×2 (08:43→20:31)
[2024-03-29] MEDS: lamoTRIgine 25 MG TABLET PO ×2 (08:43→20:31)
[2024-03-29] MEDS: Famotidine 20 MG TABLET 40 MG PO (08:43)
[2024-03-29] MEDS: Escitalopram Oxalate 5 MG TABLET PO (08:43)
[2024-03-29] MEDS: Metoprolol Succinate ER 50 MG TAB.ER.24H PO (08:44)
[2024-03-29] MEDS: fluPHENAZine HCl 5 MG TABLET PO ×2 (08:44→20:31)
[2024-03-29] MEDS: Ferrous Sulfate 324 MG TABLET.DR PO (08:44)
[2024-03-29] MEDS: Gabapentin 100 MG CAPSULE PO ×3 (08:44→20:31)
[2024-03-29] MEDS: Simethicone 80 MG TAB.CHEW PO ×4 (08:45→20:31)
[2024-03-29] MEDS: Thiamine HCL 100 MG TABLET PO (08:45)
[2024-03-29] MEDS: Apixaban 2.5 MG TABLET PO ×2 (08:45→20:31)
[2024-03-29] MEDS: Sennosides 8.6 MG TABLET 17.2 MG PO ×2 (08:45→20:31)
[2024-03-29] MEDS: Paliperidone ER 9 MG TAB.ER.24 PO (08:46)
[2024-03-29] MEDS: Losartan Potassium 50 MG TABLET PO (08:46)
[2024-03-29] MEDS: Multivitamin TABLET 1 TAB PO (08:46)
[2024-03-29] MEDS: Docusate Sodium 100 MG CAPSULE PO (08:47)
[2024-03-29] MEDS: polyethylene glycoL 3350 17 GM POWD.PACK PO (08:47)
[2024-03-29] MEDS: Magnesium Oxide 400 MG TABLET PO (08:47)
[2024-03-29] MEDS: Lidocaine 4 % Patch ADH..PATCH 1 PATCH TRANSDERMA (08:48)
[2024-03-29] MEDS: Meclizine HCl 12.5 MG TABLET PO (09:01)
[2024-03-29] MEDS: traMADoL HCL 50 MG TABLET PO ×2 (10:35→16:16)
[2024-03-29] MEDS: Cyclobenzaprine HCl 10 MG TABLET PO (13:24)
[2024-03-29] MEDS: hydrOXYzine HCL 25 MG TABLET PO (16:16)
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
[2024-03-29 20:00] VITALS: BP 110/59; PULSE 71; RESP 16; TEMP 36.3; O2SAT 93
[2024-03-29] MEDS: Mirtazapine 7.5 MG TABLET 11.25 MG PO (20:30)
[2024-03-29] MEDS: bisacodyL 5 MG TABLET.DR 10 MG PO (20:30)
--- NOTE | 2024-03-30 | ECG_ITS ---
Test Reason : Pt reports an episode of chest discomfort/pain Blood Pressure : / mmHG Vent. Rate : 069 BPM Atrial Rate : 069 BPM P-R Int : 194 ms QRS Dur : 078 ms QT Int : 404 ms P-R-T Axes : 052 034 062 degrees QTc Int : 432 ms Normal sinus rhythm Low voltage QRS Borderline ECG When compared with ECG of 11-MAR-2024 14:26, No significant change was found Referred By: Lauren Tran Electronically Signed By:MATA LEE
[2024-03-30] MEDS: traMADoL HCL 50 MG TABLET PO ×3 (02:51→18:17)
[2024-03-30 08:13] VITALS: BP 107/59; PULSE 68; RESP 20; TEMP 36.9; O2SAT 97
[2024-03-30 08:30] VITALS: BP 107/59; PULSE 68
[2024-03-30] MEDS: Losartan Potassium 50 MG TABLET PO (08:30)
[2024-03-30] MEDS: Metoprolol Succinate ER 50 MG TAB.ER.24H PO (08:30)
[2024-03-30] MEDS: polyethylene glycoL 3350 17 GM POWD.PACK PO (09:21)
[2024-03-30] MEDS: Docusate Sodium 100 MG CAPSULE PO (09:22)
[2024-03-30] MEDS: Paliperidone ER 9 MG TAB.ER.24 PO (09:23)
[2024-03-30] MEDS: levETIRAcetam 1,000 MG TABLET 1000 MG PO ×2 (09:23→20:15)
[2024-03-30] MEDS: Ferrous Sulfate 324 MG TABLET.DR PO (09:23)
[2024-03-30] MEDS: lamoTRIgine 25 MG TABLET PO ×2 (09:23→20:16)
[2024-03-30] MEDS: Gabapentin 100 MG CAPSULE PO ×3 (09:23→20:15)
[2024-03-30] MEDS: Thiamine HCL 100 MG TABLET PO (09:23)
[2024-03-30] MEDS: Simethicone 80 MG TAB.CHEW PO ×4 (09:24→20:16)
[2024-03-30] MEDS: Escitalopram Oxalate 5 MG TABLET PO (09:24)
[2024-03-30] MEDS: Apixaban 2.5 MG TABLET PO ×2 (09:25→20:16)
[2024-03-30] MEDS: Magnesium Oxide 400 MG TABLET PO (09:26)
[2024-03-30] MEDS: fluPHENAZine HCl 5 MG TABLET PO ×2 (09:26→20:15)
[2024-03-30] MEDS: Multivitamin TABLET 1 TAB PO (09:26)
[2024-03-30] MEDS: Sennosides 8.6 MG TABLET 17.2 MG PO ×2 (09:26→20:15)
[2024-03-30] MEDS: Famotidine 20 MG TABLET 40 MG PO (09:26)
[2024-03-30] MEDS: Lidocaine 4 % Patch ADH..PATCH 1 PATCH TRANSDERMA (09:27)
[2024-03-30] MEDS: Cyclobenzaprine HCl 10 MG TABLET PO ×2 (09:42→20:16)
[2024-03-30] MEDS: Meclizine HCl 12.5 MG TABLET PO (11:48)
[2024-03-30] MEDS: hydrOXYzine HCL 25 MG TABLET PO (11:48)
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
[2024-03-30 20:00] VITALS: BP 123/69; PULSE 69; RESP 18; TEMP 36.4; O2SAT 99
[2024-03-30] MEDS: Benztropine Mesylate 0.5 MG TABLET PO (20:15)
[2024-03-30] MEDS: bisacodyL 5 MG TABLET.DR 10 MG PO (20:15)
[2024-03-30] MEDS: Mirtazapine 15 MG TABLET PO (20:16)
[2024-03-30] MEDS: Meclizine HCl 25 MG TABLET PO (21:03)
[2024-03-31] MEDS: Cyclobenzaprine HCl 10 MG TABLET PO ×3 (01:52→22:27)
[2024-03-31] MEDS: traMADoL HCL 50 MG TABLET PO ×4 (01:52→20:41)
[2024-03-31 08:00] VITALS: BP 115/56; PULSE 72; RESP 16; TEMP 36.4; O2SAT 97
[2024-03-31] MEDS: Docusate Sodium 100 MG CAPSULE PO (08:40)
[2024-03-31] MEDS: Metoprolol Succinate ER 50 MG TAB.ER.24H PO (08:40)
[2024-03-31] MEDS: Famotidine 20 MG TABLET 40 MG PO (08:40)
[2024-03-31] MEDS: fluPHENAZine HCl 5 MG TABLET PO (08:40)
[2024-03-31] MEDS: Gabapentin 100 MG CAPSULE PO ×3 (08:40→20:25)
[2024-03-31] MEDS: Benztropine Mesylate 0.5 MG TABLET PO ×2 (08:41→20:24)
[2024-03-31] MEDS: Thiamine HCL 100 MG TABLET PO (08:41)
[2024-03-31] MEDS: Multivitamin TABLET 1 TAB PO (08:41)
[2024-03-31] MEDS: Paliperidone ER 9 MG TAB.ER.24 PO (08:41)
[2024-03-31] MEDS: levETIRAcetam 1,000 MG TABLET 1000 MG PO ×2 (08:41→20:25)
[2024-03-31] MEDS: Sennosides 8.6 MG TABLET 17.2 MG PO ×2 (08:41→20:24)
[2024-03-31] MEDS: Losartan Potassium 50 MG TABLET PO (08:41)
[2024-03-31] MEDS: Escitalopram Oxalate 5 MG TABLET PO (08:41)
[2024-03-31] MEDS: Magnesium Oxide 400 MG TABLET PO (08:41)
[2024-03-31] MEDS: Apixaban 2.5 MG TABLET PO ×2 (08:41→20:24)
[2024-03-31] MEDS: Ferrous Sulfate 324 MG TABLET.DR PO (08:42)
[2024-03-31] MEDS: polyethylene glycoL 3350 17 GM POWD.PACK PO (08:42)
[2024-03-31] MEDS: Lidocaine 4 % Patch ADH..PATCH 1 PATCH TRANSDERMA (08:42)
[2024-03-31] MEDS: lamoTRIgine 25 MG TABLET PO ×2 (08:42→20:25)
[2024-03-31] MEDS: Simethicone 80 MG TAB.CHEW PO ×4 (08:42→20:25)
[2024-03-31] MEDS: Meclizine HCl 25 MG TABLET PO (10:27)
[2024-03-31] MEDS: Acetaminophen 325 MG TABLET 650 MG PO (12:39)
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
[2024-03-31] MEDS: Ibuprofen 400 MG TABLET PO (18:24)
[2024-03-31 18:28] VITALS: BP 126/76; PULSE 71
[2024-03-31 18:29] VITALS: BP 132/66; PULSE 68; O2SAT 100
[2024-03-31 18:30] VITALS: PULSE 79; O2SAT 100
[2024-03-31 20:00] VITALS: RESP 15
[2024-03-31] MEDS: traZODone HCL 50 MG TABLET PO (20:24)
[2024-03-31] MEDS: fluPHENAZine HCl 1 MG TABLET 4 MG PO (20:24)
[2024-03-31] MEDS: Mirtazapine 15 MG TABLET PO (20:25)
[2024-03-31] MEDS: bisacodyL 5 MG TABLET.DR 10 MG PO (20:25)
[2024-03-31] MEDS: Melatonin 3 MG TABLET PO (20:25)
[2024-03-31] MEDS: hydrOXYzine HCL 25 MG TABLET PO (22:27)
[2024-04-01] MEDS: traMADoL HCL 50 MG TABLET PO ×2 (01:24→21:55)
[2024-04-01] MEDS: Ibuprofen 400 MG TABLET PO ×2 (01:24→21:53)
[2024-04-01] MEDS: clonazePAM 0.5 MG TABLET PO ×2 (01:24→21:54)
[2024-04-01 08:16] VITALS: BP 103/62; PULSE 64; RESP 16; TEMP 36.2; O2SAT 97
[2024-04-01] MEDS: Famotidine 20 MG TABLET 40 MG PO (09:06)
[2024-04-01 09:07] VITALS: BP 103/67; PULSE 64
[2024-04-01] MEDS: Ferrous Sulfate 324 MG TABLET.DR PO (09:07)
[2024-04-01] MEDS: Escitalopram Oxalate 5 MG TABLET PO (09:07)
[2024-04-01] MEDS: fluPHENAZine HCl 1 MG TABLET 4 MG PO ×2 (09:07→21:53)
[2024-04-01] MEDS: Magnesium Oxide 400 MG TABLET PO (09:07)
[2024-04-01] MEDS: Sennosides 8.6 MG TABLET 17.2 MG PO ×2 (09:07→21:53)
[2024-04-01] MEDS: Apixaban 2.5 MG TABLET PO ×2 (09:07→21:54)
[2024-04-01] MEDS: Gabapentin 100 MG CAPSULE PO ×3 (09:07→21:55)
[2024-04-01] MEDS: Metoprolol Succinate ER 50 MG TAB.ER.24H PO (09:07)
[2024-04-01] MEDS: Simethicone 80 MG TAB.CHEW PO ×4 (09:07→21:53)
[2024-04-01] MEDS: levETIRAcetam 1,000 MG TABLET 1000 MG PO ×2 (09:07→21:55)
[2024-04-01] MEDS: Thiamine HCL 100 MG TABLET PO (09:07)
[2024-04-01] MEDS: lamoTRIgine 25 MG TABLET PO ×2 (09:07→21:54)
[2024-04-01 09:08] VITALS: BP 103/62
[2024-04-01] MEDS: Lidocaine 4 % Patch ADH..PATCH 1 PATCH TRANSDERMA (09:08)
[2024-04-01] MEDS: Multivitamin TABLET 1 TAB PO (09:08)
[2024-04-01] MEDS: Docusate Sodium 100 MG CAPSULE PO (09:08)
[2024-04-01] MEDS: Benztropine Mesylate 0.5 MG TABLET PO ×2 (09:08→21:53)
[2024-04-01] MEDS: Paliperidone ER 9 MG TAB.ER.24 PO (09:08)
[2024-04-01] MEDS: Losartan Potassium 50 MG TABLET PO (09:08)
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
[2024-04-01] MEDS: Meclizine HCl 25 MG TABLET PO (13:58)
[2024-04-01] MEDS: hydrOXYzine HCL 25 MG TABLET PO (16:32)
[2024-04-01] MEDS: Cyclobenzaprine HCl 10 MG TABLET PO ×2 (16:32→21:54)
[2024-04-01 20:00] VITALS: BP 95/51; PULSE 68; RESP 20; TEMP 36.4; O2SAT 98
[2024-04-01] MEDS: Melatonin 3 MG TABLET PO (21:54)
[2024-04-01] MEDS: traZODone HCL 50 MG TABLET PO (21:54)
[2024-04-01] MEDS: bisacodyL 5 MG TABLET.DR 10 MG PO (21:55)
[2024-04-01] MEDS: Mirtazapine 15 MG TABLET PO (21:55)
[2024-04-02 07:00] VITALS: BMI 26.5
[2024-04-02 08:12] VITALS: BP 103/55; PULSE 58; RESP 16; TEMP 36.3; O2SAT 96
[2024-04-02] MEDS: Lidocaine 4 % Patch ADH..PATCH 1 PATCH TRANSDERMA (08:57)
[2024-04-02] MEDS: polyethylene glycoL 3350 17 GM POWD.PACK PO (08:57)
[2024-04-02] MEDS: Gabapentin 100 MG CAPSULE PO ×3 (08:58→21:51)
[2024-04-02] MEDS: lamoTRIgine 25 MG TABLET PO ×2 (08:58→21:50)
[2024-04-02] MEDS: Simethicone 80 MG TAB.CHEW PO ×4 (08:58→21:51)
[2024-04-02] MEDS: levETIRAcetam 1,000 MG TABLET 1000 MG PO ×2 (08:58→21:51)
[2024-04-02] MEDS: Losartan Potassium 50 MG TABLET PO (08:58)
[2024-04-02] MEDS: Ferrous Sulfate 324 MG TABLET.DR PO (08:58)
[2024-04-02] MEDS: Docusate Sodium 100 MG CAPSULE PO (08:58)
[2024-04-02] MEDS: Sennosides 8.6 MG TABLET 17.2 MG PO ×2 (08:58→21:51)
[2024-04-02] MEDS: Famotidine 20 MG TABLET 40 MG PO (08:58)
[2024-04-02] MEDS: Metoprolol Succinate ER 50 MG TAB.ER.24H PO (08:58)
[2024-04-02] MEDS: Escitalopram Oxalate 5 MG TABLET PO (08:58)
[2024-04-02] MEDS: Paliperidone ER 9 MG TAB.ER.24 PO (08:59)
[2024-04-02] MEDS: Apixaban 2.5 MG TABLET PO ×2 (08:59→21:51)
[2024-04-02] MEDS: Multivitamin TABLET 1 TAB PO (08:59)
[2024-04-02] MEDS: Magnesium Oxide 400 MG TABLET PO (08:59)
[2024-04-02] MEDS: Benztropine Mesylate 0.5 MG TABLET PO ×2 (08:59→21:50)
[2024-04-02] MEDS: Thiamine HCL 100 MG TABLET PO (08:59)
[2024-04-02] MEDS: Acetaminophen 325 MG TABLET 650 MG PO ×2 (09:09→19:14)
[2024-04-02] MEDS: fluPHENAZine HCl 1 MG TABLET 4 MG PO ×2 (09:10→21:50)
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
[2024-04-02] MEDS: traMADoL HCL 50 MG TABLET PO ×3 (12:17→21:49)
[2024-04-02] MEDS: Meclizine HCl 25 MG TABLET PO (13:19)
[2024-04-02 14:00] VITALS: BP 112/67; PULSE 83
[2024-04-02] MEDS: Ibuprofen 400 MG TABLET PO (19:25)
[2024-04-02] MEDS: Milk of Magnesia 30 ML ORAL.SUSP PO (19:26)
[2024-04-02 20:00] VITALS: BP 121/61; PULSE 68; TEMP 36.3; O2SAT 100
[2024-04-02] MEDS: clonazePAM 0.5 MG TABLET PO (21:49)
[2024-04-02] MEDS: bisacodyL 5 MG TABLET.DR 10 MG PO (21:51)
[2024-04-02] MEDS: Mirtazapine 15 MG TABLET PO (21:51)
[2024-04-02] MEDS: traZODone HCL 50 MG TABLET PO (22:00)
[2024-04-02] MEDS: Melatonin 3 MG TABLET PO (22:00)
[2024-04-02] MEDS: Trolamine Salicylate 10 % Cream 85 GM TUBE 1 APPL TOPICAL (22:04)
[2024-04-02] MEDS: Fluticasone Propionate Nasal 16 GM SPRAY 1 SPRAY NOSTRIL-B (22:11)
[2024-04-03 07:51] VITALS: BP 87/46; PULSE 52; RESP 16; TEMP 36.4; O2SAT 95
[2024-04-03 07:56] VITALS: BP 82/52
[2024-04-03] MEDS: levETIRAcetam 1,000 MG TABLET 1000 MG PO ×2 (08:01→20:06)
[2024-04-03] MEDS: Sennosides 8.6 MG TABLET 17.2 MG PO ×2 (08:01→22:55)
[2024-04-03] MEDS: Gabapentin 100 MG CAPSULE PO ×3 (08:01→20:06)
[2024-04-03] MEDS: Multivitamin TABLET 1 TAB PO (08:01)
[2024-04-03] MEDS: Simethicone 80 MG TAB.CHEW PO ×4 (08:01→20:05)
[2024-04-03] MEDS: lamoTRIgine 25 MG TABLET PO ×2 (08:01→20:06)
[2024-04-03] MEDS: Docusate Sodium 100 MG CAPSULE PO (08:01)
[2024-04-03] MEDS: Ferrous Sulfate 324 MG TABLET.DR PO (08:02)
[2024-04-03] MEDS: Magnesium Oxide 400 MG TABLET PO (08:02)
[2024-04-03] MEDS: Benztropine Mesylate 0.5 MG TABLET PO ×2 (08:02→20:08)
[2024-04-03] MEDS: Escitalopram Oxalate 5 MG TABLET PO (08:02)
[2024-04-03] MEDS: fluPHENAZine HCl 1 MG TABLET 4 MG PO ×2 (08:02→20:35)
[2024-04-03] MEDS: Famotidine 20 MG TABLET 40 MG PO (08:02)
[2024-04-03] MEDS: Paliperidone ER 9 MG TAB.ER.24 PO (08:02)
[2024-04-03] MEDS: Apixaban 2.5 MG TABLET PO ×2 (08:02→20:04)
[2024-04-03] MEDS: Thiamine HCL 100 MG TABLET PO (08:02)
[2024-04-03] MEDS: polyethylene glycoL 3350 17 GM POWD.PACK PO (08:02)
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
[2024-04-03] MEDS: Trolamine Salicylate 10 % Cream 141 gm Tube 1 APPL TOPICAL (13:14)
[2024-04-03] MEDS: Lidocaine 4 % Patch ADH..PATCH 1 PATCH TRANSDERMA (15:15)
[2024-04-03] MEDS: Acetaminophen 325 MG TABLET 650 MG PO (16:27)
[2024-04-03] MEDS: traMADoL HCL 50 MG TABLET PO ×2 (17:22→20:05)
[2024-04-03] MEDS: Milk of Magnesia 30 ML ORAL.SUSP PO (18:56)
[2024-04-03 20:00] VITALS: BP 99/53; PULSE 75; RESP 18; TEMP 36.4; O2SAT 95
[2024-04-03] MEDS: bisacodyL 5 MG TABLET.DR 10 MG PO (20:04)
[2024-04-03] MEDS: Cyclobenzaprine HCl 10 MG TABLET PO (20:05)
[2024-04-03] MEDS: Mirtazapine 15 MG TABLET PO (20:06)
[2024-04-04] MEDS: Melatonin 3 MG TABLET PO (00:02)
[2024-04-04] MEDS: traZODone HCL 50 MG TABLET PO (00:02)
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
[2024-04-04] MEDS: Simethicone 80 MG TAB.CHEW PO ×3 (09:23→20:14)
[2024-04-04] MEDS: Docusate Sodium 100 MG CAPSULE PO (09:24)
[2024-04-04] MEDS: Thiamine HCL 100 MG TABLET PO (09:24)
[2024-04-04] MEDS: Sennosides 8.6 MG TABLET 17.2 MG PO ×2 (09:24→20:14)
[2024-04-04] MEDS: Gabapentin 100 MG CAPSULE PO ×3 (09:24→20:14)
[2024-04-04] MEDS: Magnesium Oxide 400 MG TABLET PO (09:24)
[2024-04-04] MEDS: Escitalopram Oxalate 5 MG TABLET PO (09:24)
[2024-04-04] MEDS: Multivitamin TABLET 1 TAB PO (09:25)
[2024-04-04] MEDS: Apixaban 2.5 MG TABLET PO ×2 (09:25→20:14)
[2024-04-04] MEDS: levETIRAcetam 1,000 MG TABLET 1000 MG PO ×2 (09:26→20:14)
[2024-04-04] MEDS: lamoTRIgine 25 MG TABLET PO ×2 (09:26→20:14)
[2024-04-04] MEDS: Paliperidone ER 9 MG TAB.ER.24 PO (09:26)
[2024-04-04] MEDS: Ferrous Sulfate 324 MG TABLET.DR PO (09:26)
[2024-04-04] MEDS: Benztropine Mesylate 0.5 MG TABLET PO ×2 (09:26→20:14)
[2024-04-04] MEDS: Famotidine 20 MG TABLET 40 MG PO (09:27)
[2024-04-04] MEDS: fluPHENAZine HCl 1 MG TABLET 4 MG PO ×2 (09:27→20:14)
[2024-04-04] MEDS: Lidocaine 4 % Patch ADH..PATCH 1 PATCH TRANSDERMA (09:29)
[2024-04-04] MEDS: polyethylene glycoL 3350 17 GM POWD.PACK PO (09:30)
[2024-04-04 09:38] VITALS: BP 127/68; BP 128/78; PULSE 78; RESP 17; TEMP 36.4; O2SAT 97
[2024-04-04] MEDS: Metoprolol Succinate ER 50 MG TAB.ER.24H PO (09:38)
[2024-04-04] MEDS: Losartan Potassium 50 MG TABLET PO (09:38)
[2024-04-04] MEDS: traMADoL HCL 50 MG TABLET PO ×3 (09:49→21:15)
[2024-04-04] MEDS: Ibuprofen 400 MG TABLET PO ×2 (09:49→23:22)
[2024-04-04] MEDS: clonazePAM 0.5 MG TABLET PO ×2 (09:50→21:16)
[2024-04-04 10:46] LABS: MANUAL DIFF FLAG NO
[2024-04-04 10:51] LABS: Basophils Percent Auto 0.2 % (0-2); Hematocrit 30.5 % (37.0-47.0); Hemoglobin 10.1 g/dl (12.0-16.0); Imm Gran Abs Auto 0.01 X10*3/uL (0.00-0.03); Imm Gran Pct Auto 0.2 % (0.0-0.4); Lymphocytes Absolute Auto 0.8 X10*3/uL (1.2-4.9); Lymphocytes Percent Auto 18.9 % (20-40); Mean Corpuscular HGB Conc 33.1 g/dl (31.0-35.0); Mean Corpuscular Hemoglobin 30.6 pg (27.0-33.0); Mean Corpuscular Volume 92.4 fL (80.0-98.0); Mean Platelet Volume 8.8 fL (9.4-12.3); Monocytes Absolute Auto 0.5 X10*3/uL (0.1-1.2); Neutrophils Absolute Auto 2.9 x10*3/uL (2.0-8.3); Neutrophils Percent Auto 69.7 % (45-73); Platelet Count 192 X10*3/uL (160-400); Red Cell Distribution Width 14.3 % (11.0-16.0); White Blood Count 4.2 X10*3/uL (4.8-10.8)
[2024-04-04 11:05] LABS: Alanine Aminotransferase 11 U/L (0-31); Albumin Level 3.3 g/dL (3.5-5.0); Alkaline Phosphatase 61 U/L (39-117); Anion Gap 11 (12-20); Aspartate Amino Transferase 10 U/L (5-31); Bilirubin Total 0.2 mg/dL (0.0-1.0); Blood Urea Nitrogen 19 mg/dL (9-16); Calcium 8.7 mg/dL (8.4-10.2); Carbon Dioxide 27 mmol/L (22-29); Chloride 105 mmol/L (96-108); Estimated Glomerular Filt Rate > 60; Glucose Random 116 mg/dL (60-115); Potassium 4.6 mmol/L (3.3-5.1); Sodium 138 mmol/L (135-145); Total Protein 5.7 g/dL (6.5-8.0)
--- NOTE | 2024-04-04 14:27 | PC.NURSE ---
Pt refusing to get OOB and attend to ADL's (shower etc) this shift stating she just wants to sleep since she woke up in the middle of the night and had difficulty sleeping.
[2024-04-04] MEDS: bisacodyL 5 MG TABLET.DR 10 MG PO (20:13)
[2024-04-04] MEDS: Mirtazapine 15 MG TABLET PO (20:14)
[2024-04-04] MEDS: Cyclobenzaprine HCl 10 MG TABLET PO (21:14)
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
[2024-04-04] MEDS: traZODone HCL 25 MG HALFTAB PO (23:23)
[2024-04-04] MEDS: Trolamine Salicylate 10 % Cream 141 gm Tube 1 APPL TOPICAL (23:24)
[2024-04-05 09:20] VITALS: BP 113/62; PULSE 58; TEMP 36.7; O2SAT 96
[2024-04-05] MEDS: Apixaban 2.5 MG TABLET PO ×2 (09:21→20:29)
[2024-04-05] MEDS: Multivitamin TABLET 1 TAB PO (09:21)
[2024-04-05] MEDS: Sennosides 8.6 MG TABLET 17.2 MG PO ×2 (09:22→20:29)
[2024-04-05] MEDS: lamoTRIgine 25 MG TABLET PO ×2 (09:23→20:29)
[2024-04-05] MEDS: Ferrous Sulfate 324 MG TABLET.DR PO (09:23)
[2024-04-05] MEDS: Paliperidone ER 9 MG TAB.ER.24 PO (09:23)
[2024-04-05] MEDS: Escitalopram Oxalate 5 MG TABLET PO (09:24)
[2024-04-05] MEDS: Famotidine 20 MG TABLET 40 MG PO (09:24)
[2024-04-05] MEDS: Gabapentin 100 MG CAPSULE PO (09:24)
[2024-04-05] MEDS: levETIRAcetam 1,000 MG TABLET 1000 MG PO ×2 (09:24→20:29)
[2024-04-05] MEDS: Simethicone 80 MG TAB.CHEW PO ×4 (09:25→20:29)
[2024-04-05] MEDS: Magnesium Oxide 400 MG TABLET PO (09:25)
[2024-04-05] MEDS: fluPHENAZine HCl 1 MG TABLET 4 MG PO ×2 (09:25→20:30)
[2024-04-05] MEDS: Thiamine HCL 100 MG TABLET PO (09:26)
[2024-04-05] MEDS: Lidocaine 4 % Patch ADH..PATCH 1 PATCH TRANSDERMA (09:27)
[2024-04-05] MEDS: Benztropine Mesylate 0.5 MG TABLET PO ×2 (09:27→20:28)
[2024-04-05] MEDS: Docusate Sodium 100 MG CAPSULE PO (09:27)
[2024-04-05 09:28] VITALS: BP 113/62; PULSE 58
[2024-04-05] MEDS: Losartan Potassium 50 MG TABLET PO (09:28)
[2024-04-05] MEDS: polyethylene glycoL 3350 17 GM POWD.PACK PO (09:31)
[2024-04-05] MEDS: traMADoL HCL 50 MG TABLET PO ×2 (09:58→20:29)
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
[2024-04-05] MEDS: Meclizine HCl 25 MG TABLET PO (12:26)
[2024-04-05] MEDS: Gabapentin 100 MG CAPSULE 200 MG PO ×2 (14:16→20:29)
[2024-04-05] MEDS: Cyclobenzaprine HCl 10 MG TABLET PO (18:36)
[2024-04-05 20:00] VITALS: BP 108/62; PULSE 88; RESP 16; TEMP 36.9; O2SAT 99
[2024-04-05] MEDS: Mirtazapine 15 MG TABLET PO (20:29)
[2024-04-05] MEDS: bisacodyL 5 MG TABLET.DR 10 MG PO (20:29)
[2024-04-05] MEDS: traZODone HCL 25 MG HALFTAB PO (20:29)
[2024-04-06 07:58] VITALS: BP 135/67; PULSE 66; TEMP 36.4; O2SAT 97
[2024-04-06] MEDS: Ferrous Sulfate 324 MG TABLET.DR PO (08:34)
[2024-04-06] MEDS: Metoprolol Succinate ER 50 MG TAB.ER.24H PO (08:35)
[2024-04-06] MEDS: Gabapentin 100 MG CAPSULE 200 MG PO ×3 (08:35→21:43)
[2024-04-06] MEDS: Simethicone 80 MG TAB.CHEW PO ×3 (08:35→18:49)
[2024-04-06] MEDS: Famotidine 20 MG TABLET 40 MG PO (08:35)
[2024-04-06] MEDS: Magnesium Oxide 400 MG TABLET PO (08:35)
[2024-04-06] MEDS: Sennosides 8.6 MG TABLET 17.2 MG PO ×2 (08:35→21:44)
[2024-04-06] MEDS: Docusate Sodium 100 MG CAPSULE PO (08:35)
[2024-04-06] MEDS: Escitalopram Oxalate 5 MG TABLET PO (08:36)
[2024-04-06] MEDS: lamoTRIgine 25 MG TABLET PO ×2 (08:36→21:41)
[2024-04-06] MEDS: Paliperidone ER 9 MG TAB.ER.24 PO (08:36)
[2024-04-06] MEDS: Thiamine HCL 100 MG TABLET PO (08:36)
[2024-04-06] MEDS: Apixaban 2.5 MG TABLET PO ×2 (08:36→21:43)
[2024-04-06] MEDS: levETIRAcetam 1,000 MG TABLET 1000 MG PO ×2 (08:36→21:43)
[2024-04-06] MEDS: Benztropine Mesylate 0.5 MG TABLET PO ×2 (08:36→21:42)
[2024-04-06] MEDS: fluPHENAZine HCl 1 MG TABLET 4 MG PO ×2 (08:36→21:41)
[2024-04-06] MEDS: Losartan Potassium 50 MG TABLET PO (08:36)
[2024-04-06] MEDS: Multivitamin TABLET 1 TAB PO (08:36)
[2024-04-06] MEDS: Lidocaine 4 % Patch ADH..PATCH 1 PATCH TRANSDERMA (10:49)
[2024-04-06] MEDS: polyethylene glycoL 3350 17 GM POWD.PACK PO (11:44)
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
[2024-04-06] MEDS: Acetaminophen 325 MG TABLET 650 MG PO (18:51)
[2024-04-06 20:00] VITALS: BP 128/72; PULSE 85; RESP 16; TEMP 36.4; O2SAT 95
[2024-04-06] MEDS: traZODone HCL 25 MG HALFTAB PO (21:42)
[2024-04-06] MEDS: Melatonin 3 MG TABLET 1.5 MG PO (21:42)
[2024-04-06] MEDS: traMADoL HCL 50 MG TABLET PO (21:43)
[2024-04-06] MEDS: Cyclobenzaprine HCl 10 MG TABLET PO (21:43)
[2024-04-06] MEDS: Meclizine HCl 25 MG TABLET PO (21:44)
[2024-04-06] MEDS: bisacodyL 5 MG TABLET.DR 10 MG PO (21:44)
[2024-04-06] MEDS: Mirtazapine 15 MG TABLET PO (21:45)
[2024-04-07 08:17] VITALS: BP 127/68; PULSE 62; RESP 17; TEMP 36.6; O2SAT 97
[2024-04-07] MEDS: Paliperidone ER 9 MG TAB.ER.24 PO (09:37)
[2024-04-07] MEDS: Famotidine 20 MG TABLET 40 MG PO (09:38)
[2024-04-07] MEDS: fluPHENAZine HCl 1 MG TABLET 4 MG PO ×2 (09:38→21:11)
[2024-04-07] MEDS: Thiamine HCL 100 MG TABLET PO (09:39)
[2024-04-07] MEDS: Gabapentin 100 MG CAPSULE 200 MG PO ×3 (09:39→21:11)
[2024-04-07] MEDS: lamoTRIgine 25 MG TABLET PO ×2 (09:39→21:11)
[2024-04-07] MEDS: Magnesium Oxide 400 MG TABLET PO (09:39)
[2024-04-07] MEDS: Benztropine Mesylate 0.5 MG TABLET PO ×2 (09:40→21:11)
[2024-04-07] MEDS: Simethicone 80 MG TAB.CHEW PO ×3 (09:40→21:10)
[2024-04-07] MEDS: Sennosides 8.6 MG TABLET 17.2 MG PO ×2 (09:40→21:11)
[2024-04-07] MEDS: Ferrous Sulfate 324 MG TABLET.DR PO (09:41)
[2024-04-07] MEDS: polyethylene glycoL 3350 17 GM POWD.PACK PO (09:41)
[2024-04-07] MEDS: Multivitamin TABLET 1 TAB PO (09:41)
[2024-04-07] MEDS: levETIRAcetam 1,000 MG TABLET 1000 MG PO ×2 (09:41→21:11)
[2024-04-07] MEDS: Apixaban 2.5 MG TABLET PO ×2 (09:41→21:11)
[2024-04-07] MEDS: Escitalopram Oxalate 5 MG TABLET PO (09:41)
[2024-04-07 09:42] VITALS: BP 127/68; PULSE 62
[2024-04-07] MEDS: Docusate Sodium 100 MG CAPSULE PO (09:42)
[2024-04-07] MEDS: Metoprolol Succinate ER 50 MG TAB.ER.24H PO (09:42)
[2024-04-07] MEDS: Losartan Potassium 50 MG TABLET PO (09:42)
[2024-04-07] MEDS: Meclizine HCl 25 MG TABLET PO (09:42)
[2024-04-07] MEDS: Lidocaine 4 % Patch ADH..PATCH 1 PATCH TRANSDERMA (09:43)
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
[2024-04-07] MEDS: Ibuprofen 400 MG TABLET PO ×3 (09:51→21:12)
[2024-04-07] MEDS: traMADoL HCL 50 MG TABLET PO ×3 (09:51→21:10)
[2024-04-07] MEDS: hydrOXYzine HCL 25 MG TABLET PO ×2 (16:29→21:11)
[2024-04-07 20:00] VITALS: BP 100/55; PULSE 63; RESP 16; TEMP 36.3; O2SAT 98
[2024-04-07] MEDS: traZODone HCL 25 MG HALFTAB PO (21:10)
[2024-04-07] MEDS: bisacodyL 5 MG TABLET.DR 10 MG PO (21:11)
[2024-04-07] MEDS: Mirtazapine 7.5 MG TABLET PO (21:11)
[2024-04-07] MEDS: Cyclobenzaprine HCl 10 MG TABLET PO (21:11)
[2024-04-08 08:25] VITALS: BP 105/53; PULSE 62; RESP 16; TEMP 36.5; O2SAT 97
[2024-04-08] MEDS: polyethylene glycoL 3350 17 GM POWD.PACK PO (08:41)
[2024-04-08] MEDS: Gabapentin 100 MG CAPSULE 200 MG PO ×3 (08:43→21:57)
[2024-04-08] MEDS: Docusate Sodium 100 MG CAPSULE PO (08:43)
[2024-04-08] MEDS: levETIRAcetam 1,000 MG TABLET 1000 MG PO ×2 (08:43→21:54)
[2024-04-08] MEDS: Thiamine HCL 100 MG TABLET PO (08:43)
[2024-04-08] MEDS: Simethicone 80 MG TAB.CHEW PO ×4 (08:43→21:56)
[2024-04-08] MEDS: Escitalopram Oxalate 5 MG TABLET PO (08:43)
[2024-04-08] MEDS: Ferrous Sulfate 324 MG TABLET.DR PO (08:43)
[2024-04-08] MEDS: Famotidine 20 MG TABLET 40 MG PO (08:43)
[2024-04-08] MEDS: Paliperidone ER 9 MG TAB.ER.24 PO (08:43)
[2024-04-08] MEDS: Sennosides 8.6 MG TABLET 17.2 MG PO ×2 (08:43→21:53)
[2024-04-08] MEDS: Benztropine Mesylate 0.5 MG TABLET PO ×2 (08:43→21:57)
[2024-04-08] MEDS: lamoTRIgine 25 MG TABLET PO ×2 (08:43→21:54)
[2024-04-08] MEDS: Apixaban 2.5 MG TABLET PO ×2 (08:43→21:57)
[2024-04-08] MEDS: Multivitamin TABLET 1 TAB PO (08:43)
[2024-04-08] MEDS: Magnesium Oxide 400 MG TABLET PO (08:43)
[2024-04-08] MEDS: Lidocaine 4 % Patch ADH..PATCH 1 PATCH TRANSDERMA (08:44)
[2024-04-08] MEDS: Ibuprofen 400 MG TABLET PO (09:08)
[2024-04-08] MEDS: Acetaminophen 325 MG TABLET 650 MG PO (09:08)
[2024-04-08] MEDS: traMADoL HCL 50 MG TABLET PO (10:42)
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
[2024-04-08] MEDS: traZODone HCL 25 MG HALFTAB PO (21:54)
[2024-04-08] MEDS: Mirtazapine 7.5 MG TABLET PO (21:55)
[2024-04-08] MEDS: bisacodyL 5 MG TABLET.DR 10 MG PO (21:55)
[2024-04-08] MEDS: fluPHENAZine HCl 1 MG TABLET 4 MG PO (21:55)
[2024-04-08] MEDS: Cyclobenzaprine HCl 10 MG TABLET PO (22:05)
[2024-04-08] MEDS: Trolamine Salicylate 10 % Cream 85 GM TUBE 1 APPL TOPICAL (22:07)
[2024-04-09 07:00] VITALS: BMI 25.7
[2024-04-09 09:30] VITALS: BP 119/81; PULSE 77; RESP 18; TEMP 36.3; O2SAT 95
[2024-04-09] MEDS: Multivitamin TABLET 1 TAB PO (09:34)
[2024-04-09] MEDS: Apixaban 2.5 MG TABLET PO ×2 (09:35→20:36)
[2024-04-09] MEDS: Famotidine 20 MG TABLET 40 MG PO (09:35)
[2024-04-09] MEDS: Paliperidone ER 9 MG TAB.ER.24 PO (09:35)
[2024-04-09] MEDS: Benztropine Mesylate 0.5 MG TABLET PO ×2 (09:35→20:37)
[2024-04-09] MEDS: Gabapentin 100 MG CAPSULE 200 MG PO ×3 (09:35→20:37)
[2024-04-09] MEDS: Docusate Sodium 100 MG CAPSULE PO (09:35)
[2024-04-09] MEDS: Ferrous Sulfate 324 MG TABLET.DR PO (09:35)
[2024-04-09] MEDS: Metoprolol Succinate ER 50 MG TAB.ER.24H PO (09:35)
[2024-04-09] MEDS: Escitalopram Oxalate 5 MG TABLET PO (09:35)
[2024-04-09] MEDS: Thiamine HCL 100 MG TABLET PO (09:35)
[2024-04-09] MEDS: Magnesium Oxide 400 MG TABLET PO (09:35)
[2024-04-09] MEDS: lamoTRIgine 25 MG TABLET PO ×2 (09:35→20:38)
[2024-04-09] MEDS: Losartan Potassium 50 MG TABLET PO (09:35)
[2024-04-09] MEDS: Simethicone 80 MG TAB.CHEW PO ×4 (09:35→20:34)
[2024-04-09] MEDS: levETIRAcetam 1,000 MG TABLET 1000 MG PO ×2 (09:35→20:34)
[2024-04-09] MEDS: Sennosides 8.6 MG TABLET 17.2 MG PO ×2 (09:35→20:32)
[2024-04-09] MEDS: polyethylene glycoL 3350 17 GM POWD.PACK PO (09:37)
[2024-04-09] MEDS: Lidocaine 4 % Patch ADH..PATCH 1 PATCH TRANSDERMA (12:16)
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
[2024-04-09 20:00] VITALS: BP 117/63; PULSE 68; TEMP 36.7; O2SAT 96
[2024-04-09] MEDS: Mirtazapine 7.5 MG TABLET PO (20:31)
[2024-04-09] MEDS: bisacodyL 5 MG TABLET.DR 10 MG PO (20:33)
[2024-04-09] MEDS: fluPHENAZine HCl 1 MG TABLET 4 MG PO (20:35)
[2024-04-09] MEDS: traZODone HCL 25 MG HALFTAB PO (20:50)
[2024-04-09] MEDS: traMADoL HCL 50 MG TABLET PO (20:51)
[2024-04-10] MEDS: Cyclobenzaprine HCl 10 MG TABLET PO ×3 (01:59→22:25)
[2024-04-10] MEDS: traMADoL HCL 50 MG TABLET PO ×3 (02:00→22:25)
[2024-04-10 08:48] LABS: Prolactin 50.5 ng/mL
[2024-04-10] MEDS: fluPHENAZine HCl 1 MG TABLET 4 MG PO ×2 (09:38→22:24)
[2024-04-10] MEDS: Apixaban 2.5 MG TABLET PO ×2 (09:38→22:25)
[2024-04-10] MEDS: Sennosides 8.6 MG TABLET 17.2 MG PO ×2 (09:38→22:25)
[2024-04-10] MEDS: Benztropine Mesylate 0.5 MG TABLET PO ×2 (09:39→22:25)
[2024-04-10] MEDS: Paliperidone ER 9 MG TAB.ER.24 PO (09:39)
[2024-04-10] MEDS: Simethicone 80 MG TAB.CHEW PO ×4 (09:39→22:24)
[2024-04-10] MEDS: Gabapentin 100 MG CAPSULE 200 MG PO ×3 (09:39→22:25)
[2024-04-10] MEDS: Multivitamin TABLET 1 TAB PO (09:39)
[2024-04-10] MEDS: Famotidine 20 MG TABLET 40 MG PO (09:39)
[2024-04-10 09:40] VITALS: BP 90/55
[2024-04-10] MEDS: Losartan Potassium 50 MG TABLET PO (09:40)
[2024-04-10] MEDS: Escitalopram Oxalate 5 MG TABLET PO (09:40)
[2024-04-10] MEDS: Docusate Sodium 100 MG CAPSULE PO (09:40)
[2024-04-10] MEDS: lamoTRIgine 25 MG TABLET PO ×2 (09:40→22:25)
[2024-04-10] MEDS: polyethylene glycoL 3350 17 GM POWD.PACK PO (09:40)
[2024-04-10] MEDS: levETIRAcetam 1,000 MG TABLET 1000 MG PO ×2 (09:40→22:25)
[2024-04-10] MEDS: Lidocaine 4 % Patch ADH..PATCH 1 PATCH TRANSDERMA (09:40)
[2024-04-10 09:45] VITALS: PULSE 62; RESP 16; TEMP 36.8; O2SAT 97
[2024-04-10] MEDS: Trolamine Salicylate 10 % Cream 141 gm Tube 1 APPL TOPICAL (10:07)
[2024-04-10] MEDS: Ibuprofen 400 MG TABLET PO ×2 (13:30→22:24)
[2024-04-10] MEDS: Acetaminophen 325 MG TABLET 650 MG PO (15:34)
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
[2024-04-10 20:00] VITALS: BP 119/58; PULSE 70; RESP 16; TEMP 36.6; O2SAT 98
[2024-04-10] MEDS: Mirtazapine 7.5 MG TABLET PO (22:24)
[2024-04-10] MEDS: bisacodyL 5 MG TABLET.DR 10 MG PO (22:24)
[2024-04-10] MEDS: traZODone HCL 25 MG HALFTAB PO (22:26)
[2024-04-11 09:30] VITALS: BP 104/62; PULSE 85; RESP 16; TEMP 36.4; O2SAT 98
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
[2024-04-11] MEDS: Sennosides 8.6 MG TABLET 17.2 MG PO ×2 (09:38→20:48)
[2024-04-11] MEDS: polyethylene glycoL 3350 17 GM POWD.PACK PO (09:38)
[2024-04-11] MEDS: traMADoL HCL 50 MG TABLET PO ×2 (09:40→20:47)
[2024-04-11] MEDS: fluPHENAZine HCl 1 MG TABLET 4 MG PO ×2 (09:40→20:47)
[2024-04-11] MEDS: Cyclobenzaprine HCl 10 MG TABLET PO (09:40)
[2024-04-11] MEDS: Gabapentin 100 MG CAPSULE 200 MG PO ×3 (09:40→20:47)
[2024-04-11] MEDS: Paliperidone ER 9 MG TAB.ER.24 PO (09:40)
[2024-04-11] MEDS: Escitalopram Oxalate 5 MG TABLET PO (09:41)
[2024-04-11] MEDS: Benztropine Mesylate 0.5 MG TABLET PO ×2 (09:41→20:48)
[2024-04-11] MEDS: levETIRAcetam 1,000 MG TABLET 1000 MG PO ×2 (09:41→20:48)
[2024-04-11] MEDS: Multivitamin TABLET 1 TAB PO (09:41)
[2024-04-11] MEDS: lamoTRIgine 25 MG TABLET PO ×2 (09:41→20:47)
[2024-04-11] MEDS: Famotidine 20 MG TABLET 40 MG PO (09:41)
[2024-04-11] MEDS: Metoprolol Succinate ER 50 MG TAB.ER.24H PO (09:42)
[2024-04-11] MEDS: Lidocaine 4 % Patch ADH..PATCH 1 PATCH TRANSDERMA (09:42)
[2024-04-11] MEDS: Losartan Potassium 50 MG TABLET PO (09:42)
[2024-04-11] MEDS: Simethicone 80 MG TAB.CHEW PO ×3 (09:42→20:48)
[2024-04-11] MEDS: Apixaban 2.5 MG TABLET PO ×2 (13:00→20:47)
[2024-04-11] MEDS: Ibuprofen 400 MG TABLET PO (14:55)
[2024-04-11 20:46] VITALS: BP 124/66; PULSE 63; RESP 16; TEMP 36.6; O2SAT 98
[2024-04-11] MEDS: bisacodyL 5 MG TABLET.DR 10 MG PO (20:48)
[2024-04-11] MEDS: Mirtazapine 7.5 MG TABLET PO (20:48)
[2024-04-11] MEDS: Trolamine Salicylate 10 % Cream 141 gm Tube 1 APPL TOPICAL (20:48)
[2024-04-12 08:47] VITALS: BP 110/59; PULSE 87; RESP 16; TEMP 36.6; O2SAT 96
[2024-04-12] MEDS: polyethylene glycoL 3350 17 GM POWD.PACK PO (08:52)
[2024-04-12] MEDS: Paliperidone ER 9 MG TAB.ER.24 PO (08:53)
[2024-04-12] MEDS: Sennosides 8.6 MG TABLET 17.2 MG PO ×2 (08:53→21:28)
[2024-04-12] MEDS: Gabapentin 100 MG CAPSULE 200 MG PO ×3 (08:53→21:29)
[2024-04-12] MEDS: lamoTRIgine 25 MG TABLET PO ×2 (08:53→21:28)
[2024-04-12] MEDS: levETIRAcetam 1,000 MG TABLET 1000 MG PO ×2 (08:53→21:29)
[2024-04-12] MEDS: Simethicone 80 MG TAB.CHEW PO ×4 (08:53→21:28)
[2024-04-12] MEDS: Famotidine 20 MG TABLET 40 MG PO (08:53)
[2024-04-12] MEDS: Docusate Sodium 100 MG CAPSULE PO (08:53)
[2024-04-12] MEDS: Escitalopram Oxalate 5 MG TABLET PO (08:53)
[2024-04-12] MEDS: Metoprolol Succinate ER 50 MG TAB.ER.24H PO (08:53)
[2024-04-12] MEDS: Losartan Potassium 50 MG TABLET PO (08:53)
[2024-04-12] MEDS: Multivitamin TABLET 1 TAB PO (08:53)
[2024-04-12] MEDS: fluPHENAZine HCl 1 MG TABLET 4 MG PO (08:54)
[2024-04-12] MEDS: Benztropine Mesylate 0.5 MG TABLET PO ×2 (08:54→21:28)
[2024-04-12] MEDS: Apixaban 2.5 MG TABLET PO ×2 (08:54→21:30)
[2024-04-12] MEDS: Lidocaine 4 % Patch ADH..PATCH 1 PATCH TRANSDERMA (08:59)
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
[2024-04-12] MEDS: Ibuprofen 400 MG TABLET PO (14:19)
[2024-04-12] MEDS: traMADoL HCL 50 MG TABLET PO ×2 (17:57→21:29)
[2024-04-12] MEDS: bisacodyL 5 MG TABLET.DR 10 MG PO (21:30)
[2024-04-12] MEDS: Mirtazapine 7.5 MG TABLET PO (21:30)
[2024-04-12] MEDS: Cyclobenzaprine HCl 10 MG TABLET PO (21:30)
[2024-04-12 21:34] LABS: Levetiracetam Keppra 23.3 mcg/mL (6.0-46.0)
[2024-04-13] MEDS: levETIRAcetam 1,000 MG TABLET 1000 MG PO ×2 (09:42→21:17)
[2024-04-13] MEDS: Multivitamin TABLET 1 TAB PO (09:42)
[2024-04-13] MEDS: Sennosides 8.6 MG TABLET 17.2 MG PO ×2 (09:42→21:19)
[2024-04-13 09:43] VITALS: BP 110/64; PULSE 59; RESP 18; TEMP 36.3; O2SAT 96
[2024-04-13] MEDS: Docusate Sodium 100 MG CAPSULE PO (09:43)
[2024-04-13] MEDS: Gabapentin 100 MG CAPSULE 200 MG PO ×3 (09:43→21:16)
[2024-04-13] MEDS: Escitalopram Oxalate 5 MG TABLET PO (09:43)
[2024-04-13] MEDS: Metoprolol Succinate ER 50 MG TAB.ER.24H PO (09:43)
[2024-04-13] MEDS: fluPHENAZine HCl 1 MG TABLET 4 MG PO ×2 (09:43→21:19)
[2024-04-13] MEDS: Famotidine 20 MG TABLET 40 MG PO (09:43)
[2024-04-13] MEDS: Losartan Potassium 50 MG TABLET PO (09:43)
[2024-04-13] MEDS: lamoTRIgine 25 MG TABLET PO ×2 (09:43→21:18)
[2024-04-13] MEDS: Simethicone 80 MG TAB.CHEW PO ×4 (09:44→21:17)
[2024-04-13] MEDS: Paliperidone ER 9 MG TAB.ER.24 PO (09:44)
[2024-04-13] MEDS: Benztropine Mesylate 0.5 MG TABLET PO ×2 (09:44→21:18)
[2024-04-13] MEDS: Apixaban 2.5 MG TABLET PO ×2 (09:44→21:18)
[2024-04-13] MEDS: Lidocaine 4 % Patch ADH..PATCH 1 PATCH TRANSDERMA (09:50)
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
[2024-04-13] MEDS: Cyclobenzaprine HCl 10 MG TABLET PO (13:09)
[2024-04-13] MEDS: polyethylene glycoL 3350 17 GM POWD.PACK PO (13:09)
[2024-04-13] MEDS: Ibuprofen 400 MG TABLET PO (13:09)
[2024-04-13] MEDS: traMADoL HCL 50 MG TABLET PO (16:59)
[2024-04-13 20:00] VITALS: BP 112/59; PULSE 67; TEMP 36.5; O2SAT 97
[2024-04-13] MEDS: bisacodyL 5 MG TABLET.DR 10 MG PO (21:15)
[2024-04-13] MEDS: Mirtazapine 7.5 MG TABLET PO (21:16)
[2024-04-14 09:15] VITALS: PULSE 95; RESP 18; TEMP 36.4; O2SAT 96
[2024-04-14] MEDS: Escitalopram Oxalate 5 MG TABLET PO (09:19)
[2024-04-14] MEDS: Gabapentin 100 MG CAPSULE 200 MG PO ×3 (09:19→20:53)
[2024-04-14] MEDS: Multivitamin TABLET 1 TAB PO (09:19)
[2024-04-14] MEDS: fluPHENAZine HCl 1 MG TABLET 4 MG PO ×2 (09:19→20:54)
[2024-04-14] MEDS: Famotidine 20 MG TABLET 40 MG PO (09:19)
[2024-04-14] MEDS: lamoTRIgine 25 MG TABLET PO ×2 (09:19→20:52)
[2024-04-14] MEDS: Docusate Sodium 100 MG CAPSULE PO (09:19)
[2024-04-14] MEDS: levETIRAcetam 1,000 MG TABLET 1000 MG PO ×2 (09:19→20:54)
[2024-04-14] MEDS: Simethicone 80 MG TAB.CHEW PO ×4 (09:19→20:54)
[2024-04-14] MEDS: Sennosides 8.6 MG TABLET 17.2 MG PO ×2 (09:19→20:54)
[2024-04-14] MEDS: polyethylene glycoL 3350 17 GM POWD.PACK PO (09:20)
[2024-04-14] MEDS: Lidocaine 4 % Patch ADH..PATCH 1 PATCH TRANSDERMA (09:20)
[2024-04-14] MEDS: Apixaban 2.5 MG TABLET PO ×2 (09:20→20:54)
[2024-04-14] MEDS: Benztropine Mesylate 0.5 MG TABLET PO ×2 (09:20→20:52)
[2024-04-14] MEDS: Paliperidone ER 9 MG TAB.ER.24 PO (09:25)
[2024-04-14] MEDS: Ibuprofen 400 MG TABLET PO (09:30)
[2024-04-14] MEDS: Acetaminophen 325 MG TABLET 650 MG PO (09:30)
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
[2024-04-14] MEDS: traMADoL HCL 50 MG TABLET PO ×2 (17:11→20:53)
[2024-04-14 20:00] VITALS: BP 121/58; PULSE 74; RESP 18; TEMP 36.4; O2SAT 98
[2024-04-14] MEDS: bisacodyL 5 MG TABLET.DR 10 MG PO (20:52)
[2024-04-14] MEDS: traZODone HCL 25 MG HALFTAB PO (20:52)
[2024-04-14] MEDS: Mirtazapine 7.5 MG TABLET PO (20:52)
[2024-04-14] MEDS: Cyclobenzaprine HCl 10 MG TABLET PO (20:54)
[2024-04-15 08:00] VITALS: RESP 16
[2024-04-15] MEDS: Escitalopram Oxalate 5 MG TABLET PO (08:46)
[2024-04-15] MEDS: levETIRAcetam 1,000 MG TABLET 1000 MG PO ×2 (08:46→21:17)
[2024-04-15] MEDS: lamoTRIgine 25 MG TABLET PO ×2 (08:46→21:17)
[2024-04-15] MEDS: fluPHENAZine HCl 1 MG TABLET 4 MG PO ×2 (08:46→21:16)
[2024-04-15] MEDS: Gabapentin 100 MG CAPSULE 200 MG PO ×3 (08:46→21:17)
[2024-04-15] MEDS: Docusate Sodium 100 MG CAPSULE PO (08:46)
[2024-04-15] MEDS: Apixaban 2.5 MG TABLET PO ×2 (08:46→21:17)
[2024-04-15] MEDS: Paliperidone ER 9 MG TAB.ER.24 PO (08:46)
[2024-04-15] MEDS: Benztropine Mesylate 0.5 MG TABLET PO ×2 (08:46→21:17)
[2024-04-15] MEDS: Sennosides 8.6 MG TABLET 17.2 MG PO ×2 (08:46→21:17)
[2024-04-15] MEDS: Famotidine 20 MG TABLET 40 MG PO (08:46)
[2024-04-15] MEDS: Multivitamin TABLET 1 TAB PO (08:46)
[2024-04-15] MEDS: Simethicone 80 MG TAB.CHEW PO ×3 (08:46→21:17)
[2024-04-15] MEDS: polyethylene glycoL 3350 17 GM POWD.PACK PO (08:47)
[2024-04-15] MEDS: Lidocaine 4 % Patch ADH..PATCH 1 PATCH TRANSDERMA (08:47)
[2024-04-15] MEDS: Ibuprofen 400 MG TABLET PO (08:47)
[2024-04-15] MEDS: traMADoL HCL 50 MG TABLET PO (12:48)
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
[2024-04-15] MEDS: Acetaminophen 325 MG TABLET 650 MG PO (14:57)
[2024-04-15 20:00] VITALS: BP 130/61; PULSE 70; RESP 18; TEMP 36.5; O2SAT 98
[2024-04-15] MEDS: Mirtazapine 7.5 MG TABLET PO (21:16)
[2024-04-15] MEDS: Cyclobenzaprine HCl 10 MG TABLET PO (21:16)
[2024-04-15] MEDS: bisacodyL 5 MG TABLET.DR 10 MG PO (21:17)
[2024-04-16 08:00] VITALS: BP 141/70; PULSE 73; RESP 16; TEMP 36.4; O2SAT 98
[2024-04-16] MEDS: polyethylene glycoL 3350 17 GM POWD.PACK PO (08:45)
[2024-04-16] MEDS: Metoprolol Succinate ER 50 MG TAB.ER.24H PO (08:46)
[2024-04-16] MEDS: fluPHENAZine HCl 1 MG TABLET 4 MG PO ×2 (08:46→21:31)
[2024-04-16] MEDS: Paliperidone ER 9 MG TAB.ER.24 PO (08:46)
[2024-04-16] MEDS: Benztropine Mesylate 0.5 MG TABLET PO ×2 (08:46→21:31)
[2024-04-16] MEDS: Losartan Potassium 50 MG TABLET PO (08:46)
[2024-04-16] MEDS: Famotidine 20 MG TABLET 40 MG PO (08:47)
[2024-04-16] MEDS: Escitalopram Oxalate 5 MG TABLET PO (08:47)
[2024-04-16] MEDS: Docusate Sodium 100 MG CAPSULE PO (08:47)
[2024-04-16] MEDS: Multivitamin TABLET 1 TAB PO (08:47)
[2024-04-16] MEDS: Sennosides 8.6 MG TABLET 17.2 MG PO ×2 (08:47→21:32)
[2024-04-16] MEDS: lamoTRIgine 25 MG TABLET PO ×2 (08:47→21:32)
[2024-04-16] MEDS: levETIRAcetam 1,000 MG TABLET 1000 MG PO ×2 (08:47→21:32)
[2024-04-16] MEDS: Apixaban 2.5 MG TABLET PO ×2 (08:47→21:30)
[2024-04-16] MEDS: Gabapentin 100 MG CAPSULE 200 MG PO ×3 (08:47→21:32)
[2024-04-16] MEDS: Simethicone 80 MG TAB.CHEW PO ×4 (08:47→21:32)
[2024-04-16] MEDS: Ibuprofen 400 MG TABLET PO (13:08)
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
[2024-04-16] MEDS: traMADoL HCL 50 MG TABLET PO (16:33)
[2024-04-16 20:00] VITALS: BP 108/60; PULSE 77; RESP 20; TEMP 36.8; O2SAT 96
[2024-04-16] MEDS: bisacodyL 5 MG TABLET.DR 10 MG PO (21:31)
[2024-04-16] MEDS: Mirtazapine 7.5 MG TABLET PO (21:32)
[2024-04-16] MEDS: clonazePAM 0.5 MG TABLET PO (21:32)
[2024-04-16] MEDS: traZODone HCL 25 MG HALFTAB PO (21:32)
[2024-04-17 08:00] VITALS: BP 114/55; PULSE 57; TEMP 36.2; O2SAT 97
[2024-04-17] MEDS: Simethicone 80 MG TAB.CHEW PO ×4 (09:15→20:27)
[2024-04-17] MEDS: Lidocaine 4 % Patch ADH..PATCH 1 PATCH TRANSDERMA (09:15)
[2024-04-17] MEDS: Famotidine 20 MG TABLET 40 MG PO (09:15)
[2024-04-17 09:16] VITALS: BP 114/55
[2024-04-17] MEDS: lamoTRIgine 25 MG TABLET PO ×2 (09:17→20:25)
[2024-04-17] MEDS: fluPHENAZine HCl 1 MG TABLET 4 MG PO ×2 (09:17→20:25)
[2024-04-17] MEDS: Sennosides 8.6 MG TABLET 17.2 MG PO ×2 (09:17→20:26)
[2024-04-17] MEDS: Apixaban 2.5 MG TABLET PO ×2 (09:17→20:26)
[2024-04-17] MEDS: Gabapentin 100 MG CAPSULE 200 MG PO ×3 (09:17→20:26)
[2024-04-17] MEDS: levETIRAcetam 1,000 MG TABLET 1000 MG PO ×2 (09:17→20:27)
[2024-04-17] MEDS: Multivitamin TABLET 1 TAB PO (09:17)
[2024-04-17] MEDS: Escitalopram Oxalate 5 MG TABLET PO (09:18)
[2024-04-17] MEDS: Benztropine Mesylate 0.5 MG TABLET PO ×2 (09:18→20:31)
[2024-04-17] MEDS: Docusate Sodium 100 MG CAPSULE PO (09:18)
[2024-04-17] MEDS: Paliperidone ER 9 MG TAB.ER.24 PO (09:18)
[2024-04-17] MEDS: polyethylene glycoL 3350 17 GM POWD.PACK PO (09:23)
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
[2024-04-17 20:00] VITALS: BP 147/64; PULSE 78; RESP 18; TEMP 36.4; O2SAT 99
[2024-04-17] MEDS: Cyclobenzaprine HCl 10 MG TABLET PO (20:25)
[2024-04-17] MEDS: traMADoL HCL 50 MG TABLET PO (20:25)
[2024-04-17] MEDS: bisacodyL 5 MG TABLET.DR 10 MG PO (20:26)
[2024-04-17] MEDS: Mirtazapine 7.5 MG TABLET PO (20:26)
[2024-04-18 08:00] VITALS: BP 124/69; PULSE 65; RESP 16; TEMP 36.4; O2SAT 95
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
[2024-04-18] MEDS: Simethicone 80 MG TAB.CHEW PO ×3 (09:31→20:36)
[2024-04-18] MEDS: Gabapentin 100 MG CAPSULE 200 MG PO ×2 (09:31→16:08)
[2024-04-18] MEDS: Sennosides 8.6 MG TABLET 17.2 MG PO ×2 (09:31→20:37)
[2024-04-18] MEDS: Benztropine Mesylate 0.5 MG TABLET PO ×2 (09:31→20:37)
[2024-04-18 09:32] VITALS: BP 124/69; PULSE 65
[2024-04-18] MEDS: Metoprolol Succinate ER 50 MG TAB.ER.24H PO (09:32)
[2024-04-18] MEDS: lamoTRIgine 25 MG TABLET PO ×2 (09:32→20:38)
[2024-04-18] MEDS: Paliperidone ER 9 MG TAB.ER.24 PO (09:32)
[2024-04-18] MEDS: Cyclobenzaprine HCl 10 MG TABLET PO ×3 (09:32→20:36)
[2024-04-18] MEDS: Famotidine 20 MG TABLET 40 MG PO (09:32)
[2024-04-18] MEDS: Multivitamin TABLET 1 TAB PO (09:33)
[2024-04-18] MEDS: levETIRAcetam 1,000 MG TABLET 1000 MG PO ×2 (09:33→20:36)
[2024-04-18] MEDS: Docusate Sodium 100 MG CAPSULE PO (09:33)
[2024-04-18] MEDS: Escitalopram Oxalate 5 MG TABLET PO (09:33)
[2024-04-18] MEDS: traMADoL HCL 50 MG TABLET PO ×3 (09:33→20:37)
[2024-04-18] MEDS: Apixaban 2.5 MG TABLET PO ×2 (09:33→20:38)
[2024-04-18] MEDS: Ibuprofen 400 MG TABLET PO ×2 (09:33→16:07)
[2024-04-18 09:34] VITALS: BP 124/69
[2024-04-18] MEDS: Lidocaine 4 % Patch ADH..PATCH 1 PATCH TRANSDERMA (09:34)
[2024-04-18] MEDS: Losartan Potassium 50 MG TABLET PO (09:34)
[2024-04-18] MEDS: fluPHENAZine HCl 1 MG TABLET 4 MG PO ×2 (09:34→20:36)
[2024-04-18 20:00] VITALS: BP 109/59; PULSE 63; RESP 16; TEMP 35.7; O2SAT 100
[2024-04-18] MEDS: Gabapentin 300 MG CAPSULE PO (20:36)
[2024-04-18] MEDS: Mirtazapine 7.5 MG TABLET PO (20:38)
[2024-04-18] MEDS: bisacodyL 5 MG TABLET.DR 10 MG PO (20:38)
[2024-04-19 08:00] VITALS: BP 115/69; PULSE 65; RESP 16; TEMP 36.3; O2SAT 96
[2024-04-19] MEDS: lamoTRIgine 25 MG TABLET PO ×2 (09:50→21:00)
[2024-04-19] MEDS: Lidocaine 4 % Patch ADH..PATCH 1 PATCH TRANSDERMA (09:52)
[2024-04-19] MEDS: Paliperidone ER 9 MG TAB.ER.24 PO (09:52)
[2024-04-19] MEDS: polyethylene glycoL 3350 17 GM POWD.PACK PO (09:52)
[2024-04-19] MEDS: traMADoL HCL 50 MG TABLET PO ×2 (09:52→15:25)
[2024-04-19] MEDS: levETIRAcetam 1,000 MG TABLET 1000 MG PO ×2 (09:53→21:00)
[2024-04-19 09:54] VITALS: BP 115/69
[2024-04-19] MEDS: Benztropine Mesylate 0.5 MG TABLET PO ×2 (09:54→21:00)
[2024-04-19] MEDS: fluPHENAZine HCl 1 MG TABLET 4 MG PO ×2 (09:54→20:58)
[2024-04-19] MEDS: Escitalopram Oxalate 5 MG TABLET PO (09:54)
[2024-04-19] MEDS: Losartan Potassium 50 MG TABLET PO (09:54)
[2024-04-19] MEDS: Docusate Sodium 100 MG CAPSULE PO (09:54)
[2024-04-19] MEDS: Multivitamin TABLET 1 TAB PO (09:54)
[2024-04-19] MEDS: Famotidine 20 MG TABLET 40 MG PO (09:54)
[2024-04-19 09:55] VITALS: BP 115/69; PULSE 65
[2024-04-19] MEDS: Cyclobenzaprine HCl 10 MG TABLET PO ×2 (09:55→15:25)
[2024-04-19] MEDS: Ibuprofen 400 MG TABLET PO ×2 (09:55→15:26)
[2024-04-19] MEDS: Metoprolol Succinate ER 50 MG TAB.ER.24H PO (09:55)
[2024-04-19] MEDS: Sennosides 8.6 MG TABLET 17.2 MG PO ×2 (09:55→21:01)
[2024-04-19] MEDS: Simethicone 80 MG TAB.CHEW PO ×3 (09:55→21:01)
[2024-04-19] MEDS: Apixaban 2.5 MG TABLET PO ×2 (09:56→20:59)
[2024-04-19] MEDS: Gabapentin 300 MG CAPSULE PO ×3 (09:56→21:07)
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
[2024-04-19 20:00] VITALS: BP 99/55; PULSE 64; RESP 20; TEMP 36.3; O2SAT 99
[2024-04-19] MEDS: bisacodyL 5 MG TABLET.DR 10 MG PO (21:00)
[2024-04-19] MEDS: Mirtazapine 7.5 MG TABLET PO (21:01)
[2024-04-19] MEDS: Acetaminophen 325 MG TABLET 650 MG PO (21:01)
[2024-04-19] MEDS: clonazePAM 0.5 MG TABLET PO (21:01)
[2024-04-19] MEDS: traZODone HCL 25 MG HALFTAB PO (21:01)
[2024-04-20] MEDS: levETIRAcetam 1,000 MG TABLET 1000 MG PO ×2 (09:56→20:20)
[2024-04-20] MEDS: Simethicone 80 MG TAB.CHEW PO ×4 (09:57→20:19)
[2024-04-20] MEDS: Sennosides 8.6 MG TABLET 17.2 MG PO ×2 (09:58→20:19)
[2024-04-20] MEDS: Famotidine 20 MG TABLET 40 MG PO (09:58)
[2024-04-20] MEDS: fluPHENAZine HCl 1 MG TABLET 4 MG PO ×2 (09:59→20:20)
[2024-04-20] MEDS: Docusate Sodium 100 MG CAPSULE PO (10:00)
[2024-04-20] MEDS: Multivitamin TABLET 1 TAB PO (10:00)
[2024-04-20] MEDS: Paliperidone ER 9 MG TAB.ER.24 PO (10:01)
[2024-04-20] MEDS: Escitalopram Oxalate 5 MG TABLET PO (10:01)
[2024-04-20] MEDS: lamoTRIgine 25 MG TABLET PO ×2 (10:01→20:33)
[2024-04-20] MEDS: Benztropine Mesylate 0.5 MG TABLET PO ×2 (10:02→20:19)
[2024-04-20] MEDS: Gabapentin 300 MG CAPSULE PO ×3 (10:02→20:20)
[2024-04-20] MEDS: Lidocaine 4 % Patch ADH..PATCH 1 PATCH TRANSDERMA (10:03)
[2024-04-20 10:58] VITALS: BP 110/56; PULSE 74; RESP 14; TEMP 36.4; O2SAT 100
[2024-04-20] MEDS: Apixaban 2.5 MG TABLET PO ×2 (11:04→20:20)
[2024-04-20 11:06] VITALS: BP 110/56
[2024-04-20 11:07] VITALS: BP 110/56
[2024-04-20] MEDS: Cyclobenzaprine HCl 10 MG TABLET PO ×2 (14:03→20:20)
[2024-04-20] MEDS: traMADoL HCL 50 MG TABLET PO ×2 (14:04→20:20)
[2024-04-20] MEDS: Ibuprofen 400 MG TABLET PO (15:57)
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
[2024-04-20 20:00] VITALS: BP 112/53; PULSE 73; RESP 18; TEMP 36.4; O2SAT 98
[2024-04-20] MEDS: bisacodyL 5 MG TABLET.DR 10 MG PO (20:19)
[2024-04-20] MEDS: Mirtazapine 7.5 MG TABLET PO (20:20)
--- NOTE | 2024-04-21 | EEG_ITS ---
FINDINGS: Waking background activity consists of 7 to 7.5 hertz posterior slow alpha intermixed with low voltage fast frequencies anteriorly. Photic stimulation is without activation. Hyperventilation is omitted. No focal, lateralizing, or paroxysmal discharges are seen. IMPRESSION: This EEG is considered minimally abnormal due to mild diffuse background slowing consistent with a mild diffuse encephalopathic process. No epileptiform discharges are seen. MD ERNESTINE Romero/MODL / [id number]
[2024-04-21] MEDS: Gabapentin 300 MG CAPSULE PO ×3 (09:49→21:24)
[2024-04-21] MEDS: Docusate Sodium 100 MG CAPSULE PO (09:49)
[2024-04-21] MEDS: levETIRAcetam 1,000 MG TABLET 1000 MG PO ×2 (09:49→21:23)
[2024-04-21] MEDS: Paliperidone ER 9 MG TAB.ER.24 PO (09:50)
[2024-04-21] MEDS: Benztropine Mesylate 0.5 MG TABLET PO ×2 (09:50→21:24)
[2024-04-21] MEDS: Sennosides 8.6 MG TABLET 17.2 MG PO ×2 (09:50→21:23)
[2024-04-21] MEDS: Escitalopram Oxalate 5 MG TABLET PO (09:50)
[2024-04-21] MEDS: Multivitamin TABLET 1 TAB PO (09:50)
[2024-04-21] MEDS: Simethicone 80 MG TAB.CHEW PO ×3 (09:50→21:23)
[2024-04-21] MEDS: Apixaban 2.5 MG TABLET PO ×2 (09:50→21:24)
[2024-04-21] MEDS: Famotidine 20 MG TABLET 40 MG PO (09:50)
[2024-04-21] MEDS: fluPHENAZine HCl 1 MG TABLET 4 MG PO ×2 (09:50→21:24)
[2024-04-21] MEDS: lamoTRIgine 25 MG TABLET PO ×2 (09:50→21:23)
[2024-04-21 09:53] VITALS: BP 131/68; PULSE 68; RESP 16; TEMP 36.4; O2SAT 98
[2024-04-21] MEDS: Losartan Potassium 50 MG TABLET PO (09:54)
[2024-04-21] MEDS: Metoprolol Succinate ER 50 MG TAB.ER.24H PO (09:54)
[2024-04-21] MEDS: polyethylene glycoL 3350 17 GM POWD.PACK PO (09:55)
[2024-04-21] MEDS: Acetaminophen 325 MG TABLET 650 MG PO (11:24)
[2024-04-21] MEDS: Ibuprofen 400 MG TABLET PO ×3 (11:24→21:23)
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
[2024-04-21] MEDS: clonazePAM 0.5 MG TABLET PO (15:40)
[2024-04-21] MEDS: Mirtazapine 7.5 MG TABLET PO (21:23)
[2024-04-21] MEDS: Cyclobenzaprine HCl 10 MG TABLET PO (21:23)
[2024-04-21] MEDS: bisacodyL 5 MG TABLET.DR 10 MG PO (21:23)
[2024-04-22] MEDS: Lidocaine 4 % Patch ADH..PATCH 1 PATCH TRANSDERMA (09:35)
[2024-04-22] MEDS: Paliperidone ER 9 MG TAB.ER.24 PO (09:36)
[2024-04-22] MEDS: Famotidine 20 MG TABLET 40 MG PO (09:36)
[2024-04-22] MEDS: Multivitamin TABLET 1 TAB PO (09:36)
[2024-04-22] MEDS: Benztropine Mesylate 0.5 MG TABLET PO ×2 (09:36→20:35)
[2024-04-22] MEDS: fluPHENAZine HCl 1 MG TABLET 4 MG PO ×2 (09:37→20:34)
[2024-04-22] MEDS: levETIRAcetam 1,000 MG TABLET 1000 MG PO ×2 (09:37→20:35)
[2024-04-22] MEDS: lamoTRIgine 25 MG TABLET PO ×2 (09:37→20:35)
[2024-04-22] MEDS: Escitalopram Oxalate 5 MG TABLET PO (09:37)
[2024-04-22] MEDS: Docusate Sodium 100 MG CAPSULE PO (09:37)
[2024-04-22] MEDS: Gabapentin 300 MG CAPSULE PO ×3 (09:37→20:35)
[2024-04-22] MEDS: Sennosides 8.6 MG TABLET 17.2 MG PO ×2 (09:37→20:34)
[2024-04-22] MEDS: Apixaban 2.5 MG TABLET PO ×2 (09:37→20:35)
[2024-04-22] MEDS: Simethicone 80 MG TAB.CHEW PO ×4 (09:37→20:36)
[2024-04-22] MEDS: polyethylene glycoL 3350 17 GM POWD.PACK PO (09:38)
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
[2024-04-22 11:08] VITALS: BP 131/68; PULSE 68; O2SAT 98
[2024-04-22] MEDS: Mineral Oil/Petrolatum,White 106 GM Tube 1 APPL TOPICAL (15:47)
--- NOTE | 2024-04-22 17:13 | PM.NEUROCN ---
History of Present Illness Data of Consult Service Date: 04/22/24 Primary Care Provider: Unknown Physician HPI Reason for consult: ?SZ according to Patient This is a 59 year-old woman with hx of schizoaffective disorder, mild mental challenges who resides in a detention admitted after reporting that she was weak and couldn't ambulate. I was asked to see her because she claimed to have had an unwitnessed seizure. Hx is vague and there are no documented Sz in the past. She had an EEG which shows no Sz activity and borderline generalized slowing that correlates with her baseline cognitive level. [facility] Past Medical History Medical History Pulmonary embolism Seizure disorder Hyperlipidemia Hypertension Social History Social History Household Members: Other Household Members Other:: detention Housing: Other Housing Other:: detention Patient Tobacco Use Status: Never used Tobacco Smoked in Last 30 Days: No e-Cigarette/Vaping Use: Never Used Patient Interested in Nicotine Replacement: No Patient Given Instructions on How to Stop Smoking: No Second Hand Smoke Exposure: No Use of substances other than those prescribed or required for medical reasons: No Currently Displaying Signs/Symptoms of Drug Intoxication Withdrawal: No Do you feel safe in your current relationship?: No Current Relationship Spiritual Healthcare Practices: refuses to participate Mandaeism Healthcare Practices: refuses to participate Cultural Healthcare Practices: refuses to participate Advance Directives: No Advance Directives Information Provided: No Do you have thoughts of harming others: None Do you have a plan to hurt others: No Plan Nutrition Risks: No Nutritional Risk Patient : No : No Poor oral hygiene: No service: No Sexual orientation: Unable to collect Meds Allergies Allergy/AdvReac Type Severity Reaction Status Date / Time amoxicillin Allergy Unknown Verified 03/06/24 17:04 aripiprazole [From Abilify] Allergy Unknown Verified 03/06/24 17:20 Barbiturates Allergy Nausea and Verified 03/06/24 17:20 Vomiting ceftriaxone Allergy Unknown Verified 03/06/24 17:20 ciprofloxacin Allergy Unknown Verified 03/06/24 17:20 Latex, Natural Rubber Allergy Hives Verified 03/06/24 17:20 oxycodone Allergy Unknown Verified 03/06/24 17:20 Penicillins Allergy Unknown Verified 03/06/24 17:20 Sulfa (Sulfonamide Allergy Blister Verified 03/06/24 17:20 Antibiotics) venlafaxine [From Effexor] Allergy Unknown Verified 03/06/24 17:20 Venlafaxine Analogues Allergy Unknown Verified 03/06/24 17:20 Active Medications: Current Medications Acetaminophen (Acetaminophen 325 Mg Tablet) 650 mg PO Q6H PRN PRN Reason: Headache/Pain Mild Scale (1-3) Last Admin: 04/21/24 11:24 Dose: 650 mg Al Hydroxide/Mg Hydroxide (Magnesium Hydrox/Alum Hydrox 30 Ml Oral.Susp) 30 ml PO Q6H PRN PRN Reason: Heartburn/Nausea Apixaban (Apixaban 2.5 Mg Tablet) 2.5 mg PO BID [facility] Last Admin: 04/22/24 09:37 Dose: 2.5 mg Benztropine Mesylate (Benztropine Mesylate 0.5 Mg Tablet) 0.5 mg PO BID [facility] Last Admin: 04/22/24 09:36 Dose: 0.5 mg Bisacodyl (Bisacodyl 5 Mg Tablet.Dr) 10 mg PO BEDTIME [facility] [place] Last Admin: 04/21/24 21:23 Dose: 10 mg Clonazepam (Clonazepam 0.5 Mg Tablet) 0.5 mg PO BID PRN PRN Reason: anxiety Last Admin: 04/21/24 15:40 Dose: 0.5 mg Cyclobenzaprine HCl (Cyclobenzaprine Hcl 10 Mg Tablet) 10 mg PO TID PRN PRN Reason: muscle spasms Last Admin: 04/21/24 21:23 Dose: 10 mg Docusate Sodium (Docusate Sodium 100 Mg Capsule) 100 mg PO DAILY [facility] Last Admin: 04/22/24 09:37 Dose: 100 mg Escitalopram Oxalate (Escitalopram Oxalate 5 Mg Tablet) 5 mg PO DAILY [facility] Last Admin: 04/22/24 09:37 Dose: 5 mg Famotidine (Famotidine 20 Mg Tablet) 40 mg PO DAILY [facility] Last Admin: 04/22/24 09:36 Dose: 40 mg Fluphenazine HCl (Fluphenazine Hcl 1 Mg Tablet) 4 mg PO BID [facility] Last Admin: 04/22/24 09:37 Dose: 4 mg Gabapentin (Gabapentin 300 Mg Capsule) 300 mg PO TID [facility] Last Admin: 04/22/24 15:46 Dose: 300 mg Ibuprofen (Ibuprofen 400 Mg Tablet) 400 mg PO Q4H PRN PRN Reason: arthritis Last Admin: 04/21/24 21:23 Dose: 400 mg Lamotrigine (Lamotrigine 25 Mg Tablet) 25 mg PO BID [facility] Last Admin: 04/22/24 09:37 Dose: 25 mg Levetiracetam (Levetiracetam 1,000 Mg Tablet) 1,000 mg PO BID [facility] Last Admin: 04/22/24 09:37 Dose: 1,000 mg Lidocaine (Lidocaine 4 % Patch Adh..Patch) 1 patch TRANSDERMA DAILY [facility] Last Admin: 04/22/24 09:35 Dose: 1 patch Losartan Potassium (Losartan Potassium 50 Mg Tablet) 50 mg PO DAILY [facility]; Protocol Last Admin: 04/22/24 09:38 Dose: Not Given Magnesium Hydroxide (Milk Of Magnesia 30 Ml Oral.Susp) 30 ml PO DAILY PRN PRN Reason: Constipation Last Admin: 04/03/24 18:56 Dose: 30 ml Metoprolol Succinate (Metoprolol Succinate Er 50 Mg Tab.Er.24h) 50 mg PO DAILY [facility]; Protocol Last Admin: 04/22/24 09:38 Dose: Not Given Mirtazapine (Mirtazapine 7.5 Mg Tablet) 7.5 mg PO BEDTIME [facility] Last Admin: 04/21/24 21:23 Dose: 7.5 mg Multi-Ingred Cream/Lotion/Oil/Oint (Mineral Oil/Petrolatum,White 106 Gm Tube) 1 appl TOPICAL TID [facility]; Protocol Last Admin: 04/22/24 15:47 Dose: 1 appl Multivitamins/Vitamin C (Multivitamin Tablet) 1 tab PO DAILY [facility] [place] Last Admin: 04/22/24 09:36 Dose: 1 tab Nicotine Polacrilex (Nicotine Polacrilex 2 Mg Gum) 2 mg BUCCAL Q2H PRN PRN Reason: Nicotine Cravings Pt Own (Bengay (Ultrastrength)) 1 applic TOPICAL TID PRN PRN Reason: arthritis pain Last Admin: 04/18/24 20:36 Dose: 1 applic Paliperidone (Paliperidone Er 9 Mg Tab.Er.24) 9 mg PO DAILY [facility] [place] Last Admin: 04/22/24 09:36 Dose: 9 mg Polyethylene Glycol (Polyethylene Glycol 3350 17 Gm Powd.Pack) 17 gm PO DAILY [facility] Last Admin: 04/22/24 09:38 Dose: 17 gm Senna (Sennosides 8.6 Mg Tablet) 17.2 mg PO BID [facility] Last Admin: 04/22/24 09:37 Dose: 17.2 mg Simethicone (Simethicone 80 Mg Tab.Chew) 80 mg PO QID [facility] Last Admin: 04/22/24 15:51 Dose: 80 mg Tramadol HCl (Tramadol Hcl 50 Mg Tablet) 50 mg PO Q4H PRN PRN Reason: Pain, Severe (Pain Scale 7-10) Last Admin: 04/20/24 20:20 Dose: 50 mg Trazodone HCl (Trazodone Hcl 25 Mg Halftab) 25 mg PO BEDTIME PRN PRN Reason: Insomnia Last Admin: 04/19/24 21:01 Dose: 25 mg Trolamine Salicylate (Trolamine Salicylate 10 % Cream 141 Gm Tube) 1 appl TOPICAL TID PRN PRN Reason: arthritis sx Last Admin: 04/11/24 20:48 Dose: 1 appl Home Medications ?Medication ?Instructions ?Recorded ?Confirmed ?Last Taken ?Type acetaminophen 325 mg tablet 650 mg PO Q6H PRN Anxiety 03/06/24 03/06/24 Unknown History apixaban 2.5 mg tablet 2.5 mg PO BID 03/06/24 03/06/24 Unknown History bisacodyl 5 mg tablet 10 mg BEDTIME 03/06/24 03/06/24 Unknown History cyclobenzaprine 10 mg tablet 10 mg PO TID PRN muscle spasms 03/06/24 03/06/24 Unknown History docusate sodium 100 mg capsule 100 mg PO DAILY 03/06/24 03/06/24 Unknown History famotidine 40 mg tablet 40 mg PO DAILY 03/06/24 03/06/24 Unknown History ferrous sulfate 325 mg (65 mg 325 mg PO DAILY 03/06/24 03/06/24 Unknown History iron) tablet fluphenazine HCl 2.5 mg tablet 2.5 mg PO BID 03/06/24 03/06/24 Unknown History fluphenazine HCl 5 mg tablet 5 mg PO BEDTIME 03/06/24 03/06/24 Unknown History fluticasone propionate 50 1 spray intranasal BID 03/06/24 03/06/24 Unknown History mcg/actuation nasal spray,suspension gabapentin 100 mg capsule 100 mg PO TID 03/06/24 03/06/24 Unknown History lamotrigine 25 mg tablet 25 mg PO BID 03/06/24 03/06/24 Unknown History levetiracetam 1,000 mg tablet 1,000 mg PO BID 03/06/24 03/06/24 Unknown History lidocaine 4 % topical cream 1 appl topical DAILY 03/06/24 03/06/24 Unknown History lidocaine 5 % topical patch 1 patch topical DAILY 03/06/24 03/06/24 Unknown History lorazepam 1 mg tablet 1 mg PO BID 03/06/24 03/06/24 Unknown History losartan 50 mg tablet 50 mg PO DAILY 03/06/24 03/06/24 Unknown History magnesium oxide 400 mg (241.3 mg 400 mg PO DAILY 03/06/24 03/06/24 Unknown History magnesium) tablet melatonin 3 mg tablet 3 mg PO BEDTIME PRN Sleep 03/06/24 03/06/24 Unknown History metoprolol succinate 50 mg 50 mg PO DAILY 03/06/24 03/06/24 Unknown History tablet,extended release 24 hr miconazole 2 topical BEDTIME 03/06/24 Unknown History multivitamin with minerals 1 tab PO DAILY 03/06/24 03/06/24 Unknown History paliperidone 6 mg tablet,extended 6 mg PO QAM 03/06/24 03/06/24 Unknown History release 24 hr polyethylene glycol 3350 17 gram 17 g PO DAILY 03/06/24 03/06/24 Unknown History oral powder packet (Miralax) sennosides 17.2 mg tablet 17.2 mg PO BID 03/06/24 03/06/24 Unknown History simethicone 80 mg chewable tablet 80 mg PO QID 03/06/24 03/06/24 Unknown History (Gas Relief 80 (simethicone)) thiamine HCl (vitamin B1) 100 mg 100 mg PO DAILY 03/06/24 03/06/24 Unknown History tablet tramadol 50 mg tablet 50 mg PO Q4H PRN Severe Pain 03/06/24 03/06/24 Unknown History (Scale Score 7-10) Physical Exam Vital Signs: Vital Signs: Last Vital Signs Temp 97.5 F 04/21/24 09:53 Pulse 68 04/22/24 11:08 Resp 16 04/21/24 09:53 BP 131/68 04/22/24 11:08 Pulse Ox 98 04/22/24 11:08 O2 Del Method Room Air 04/21/24 09:53 BMI result Body Mass Index 25.7 Neuro: Other: Non focal exam Results Labs 04/04/24 10:34 04/04/24 10:34 Assessment and Plan (1) Schizoaffective disorder: Status: Acute No convincing evidence of a seizure disorder or eye witness account. EEG ding snot show any seizure activity. Would not recommend starting any anti epileptic drugs. Procedures Date of Service Date of Service: 04/22/24
[2024-04-22] MEDS: Cyclobenzaprine HCl 10 MG TABLET PO (17:17)
[2024-04-22] MEDS: Ibuprofen 400 MG TABLET PO (17:17)
[2024-04-22 20:00] VITALS: BP 123/67; PULSE 67; RESP 15; TEMP 36.3; O2SAT 99
[2024-04-22] MEDS: Mirtazapine 7.5 MG TABLET PO (20:34)
[2024-04-22] MEDS: traMADoL HCL 50 MG TABLET PO (20:35)
[2024-04-22] MEDS: Milk of Magnesia 30 ML ORAL.SUSP PO (20:36)
[2024-04-22] MEDS: bisacodyL 5 MG TABLET.DR 10 MG PO (20:36)
[2024-04-23] MEDS: Docusate Sodium 100 MG CAPSULE PO (10:07)
[2024-04-23] MEDS: Sennosides 8.6 MG TABLET 17.2 MG PO ×2 (10:07→22:15)
[2024-04-23] MEDS: Benztropine Mesylate 0.5 MG TABLET PO ×2 (10:07→22:19)
[2024-04-23] MEDS: lamoTRIgine 25 MG TABLET PO ×2 (10:08→22:17)
[2024-04-23] MEDS: levETIRAcetam 1,000 MG TABLET 1000 MG PO ×2 (10:08→22:17)
[2024-04-23] MEDS: Gabapentin 300 MG CAPSULE PO ×3 (10:08→22:16)
[2024-04-23] MEDS: fluPHENAZine HCl 1 MG TABLET 4 MG PO ×2 (10:09→22:18)
[2024-04-23] MEDS: Simethicone 80 MG TAB.CHEW PO ×4 (10:09→22:18)
[2024-04-23] MEDS: Escitalopram Oxalate 5 MG TABLET PO (10:10)
[2024-04-23] MEDS: Apixaban 2.5 MG TABLET PO ×2 (10:10→22:18)
[2024-04-23] MEDS: Paliperidone ER 9 MG TAB.ER.24 PO (10:10)
[2024-04-23] MEDS: Famotidine 20 MG TABLET 40 MG PO (10:10)
[2024-04-23] MEDS: polyethylene glycoL 3350 17 GM POWD.PACK PO (10:11)
[2024-04-23] MEDS: Multivitamin TABLET 1 TAB PO (10:11)
[2024-04-23] MEDS: Lidocaine 4 % Patch ADH..PATCH 1 PATCH TRANSDERMA (10:11)
[2024-04-23 10:15] VITALS: BP 110/60
[2024-04-23] MEDS: Losartan Potassium 50 MG TABLET PO (10:15)
[2024-04-23 10:16] VITALS: BP 110/60; PULSE 70
[2024-04-23] MEDS: Metoprolol Succinate ER 50 MG TAB.ER.24H PO (10:16)
[2024-04-23 10:27] VITALS: BP 128/60; PULSE 78; RESP 17; TEMP 36.5; O2SAT 99
--- NOTE | 2024-04-23 10:53 | P.PNPSI_ITS ---
Subjective Subjective Date of Service: 04/23/24 Reason For Visit: Schizoaffective Disorder Bipolar Type Subjective Notes: Conditional Voluntary Healthcare Proxy: No Guardianship: No Medical Problems Affecting Mental Status: No Interim History: Reports feeling better today, improved rest, less pain. Continues with anxiety regarding potential placement. Medication Compliance: Yes Side effects from medications: No Attending Groups: No Review of Systems Acute medical concerns: No Medical Review of Systems: unchanged Review of Systems Review of Systems Yes all other systems are reviewed and are negative Mental Status Exam Mental Status Exam Patient Appearance: Appropriate Patient Orientation: Person, Place, Time and Situation Level of Consciousness: Alert Patient Behavior: Talkative and Good Eye Contact Mood Description: Appropriate Affect Description: Appropriate Patient Cognition Impaired: No Ability to Follow Directions: Good Speech Pattern: Spontaneous Speech (with intermittent grunting) Memory Description: Remote Impaired (pt report), Episodic Impaired (pt report), Recent Impaired (pt report) and Working Impaired (pt report) Hallucinations: None Delusions: Not Present Thought Process: Goal Oriented Thought Content: positive for [place] and positive for Circumstantial Depressive Symptoms: Isolating-Friends/Family Judgement: Fair Diagnostics Vital Signs (24Hr): Vital Signs - 24 hr 04/22/24 11:08 04/22/24 20:00 04/23/24 10:15 Temperature 97.3 F Pulse Rate 68 67 Respiratory Rate 15 Blood Pressure 131/68 123/67 110/60 Pulse Oximetry 98 99 Oxygen Delivery Method 04/23/24 10:16 04/23/24 10:27 Temperature 97.7 F Pulse Rate 70 78 Respiratory Rate 17 Blood Pressure 110/60 128/60 Pulse Oximetry 99 Oxygen Delivery Method Room Air BMI result Body Mass Index 25.7 Labs 04/04/24 10:34 04/04/24 10:34 Imaging Radiology Impressions: ITS Impressions Lumbar Spine X-Ray 04/08/24 11:07 IMPRESSION: 1. There is moderate degenerative disease at L2-L3 and L3-L4, and marked degenerative disc disease is seen at L5-S1. 2. There is multi-level lumbar spondylosis and endplate arthropathy. Medications Medications Current Medications Acetaminophen (Acetaminophen 325 Mg Tablet) 650 mg PO Q6H PRN PRN Reason: Headache/Pain Mild Scale (1-3) Last Admin: 04/21/24 11:24 Dose: 650 mg Al Hydroxide/Mg Hydroxide (Magnesium Hydrox/Alum Hydrox 30 Ml Oral.Susp) 30 ml PO Q6H PRN PRN Reason: Heartburn/Nausea Apixaban (Apixaban 2.5 Mg Tablet) 2.5 mg PO BID [facility] Last Admin: 04/23/24 10:10 Dose: 2.5 mg Benztropine Mesylate (Benztropine Mesylate 0.5 Mg Tablet) 0.5 mg PO BID [facility] Last Admin: 04/23/24 10:07 Dose: 0.5 mg Bisacodyl (Bisacodyl 5 Mg Tablet.Dr) 10 mg PO BEDTIME [facility] Last Admin: 04/22/24 20:36 Dose: 10 mg Clonazepam (Clonazepam 0.5 Mg Tablet) 0.5 mg PO BID PRN PRN Reason: anxiety Last Admin: 04/21/24 15:40 Dose: 0.5 mg Cyclobenzaprine HCl (Cyclobenzaprine Hcl 10 Mg Tablet) 10 mg PO TID PRN PRN Reason: muscle spasms Last Admin: 04/22/24 17:17 Dose: 10 mg Docusate Sodium (Docusate Sodium 100 Mg Capsule) 100 mg PO DAILY [facility] Last Admin: 04/23/24 10:07 Dose: 100 mg Escitalopram Oxalate (Escitalopram Oxalate 5 Mg Tablet) 5 mg PO DAILY [facility] Last Admin: 04/23/24 10:10 Dose: 5 mg Famotidine (Famotidine 20 Mg Tablet) 40 mg PO DAILY [facility] Last Admin: 04/23/24 10:10 Dose: 40 mg Fluphenazine HCl (Fluphenazine Hcl 1 Mg Tablet) 4 mg PO BID [facility] Last Admin: 04/23/24 10:09 Dose: 4 mg Gabapentin (Gabapentin 300 Mg Capsule) 300 mg PO TID [facility] Last Admin: 04/23/24 10:08 Dose: 300 mg Ibuprofen (Ibuprofen 400 Mg Tablet) 400 mg PO Q4H PRN PRN Reason: arthritis Last Admin: 04/22/24 17:17 Dose: 400 mg Lamotrigine (Lamotrigine 25 Mg Tablet) 25 mg PO BID [facility] Last Admin: 04/23/24 10:08 Dose: 25 mg Levetiracetam (Levetiracetam 1,000 Mg Tablet) 1,000 mg PO BID [facility] Last Admin: 04/23/24 10:08 Dose: 1,000 mg Lidocaine (Lidocaine 4 % Patch Adh..Patch) 1 patch TRANSDERMA DAILY [facility] Last Admin: 04/23/24 10:11 Dose: 1 patch Losartan Potassium (Losartan Potassium 50 Mg Tablet) 50 mg PO DAILY [facility]; Protocol Last Admin: 04/23/24 10:15 Dose: 50 mg Magnesium Hydroxide (Milk Of Magnesia 30 Ml Oral.Susp) 30 ml PO DAILY PRN PRN Reason: Constipation Last Admin: 04/22/24 20:36 Dose: 30 ml Metoprolol Succinate (Metoprolol Succinate Er 50 Mg Tab.Er.24h) 50 mg PO DAILY [facility]; Protocol Last Admin: 04/23/24 10:16 Dose: 50 mg Mirtazapine (Mirtazapine 7.5 Mg Tablet) 7.5 mg PO BEDTIME [facility] Last Admin: 04/22/24 20:34 Dose: 7.5 mg Multi-Ingred Cream/Lotion/Oil/Oint (Mineral Oil/Petrolatum,White 106 Gm Tube) 1 appl TOPICAL TID [facility]; Protocol Last Admin: 04/23/24 10:12 Dose: Not Given Multivitamins/Vitamin C (Multivitamin Tablet) 1 tab PO DAILY [facility] Last Admin: 04/23/24 10:11 Dose: 1 tab Nicotine Polacrilex (Nicotine Polacrilex 2 Mg Gum) 2 mg BUCCAL Q2H PRN PRN Reason: Nicotine Cravings Pt Own (Bengay (Ultrastrength)) 1 applic TOPICAL TID PRN PRN Reason: arthritis pain Last Admin: 04/18/24 20:36 Dose: 1 applic Paliperidone (Paliperidone Er 9 Mg Tab.Er.24) 9 mg PO DAILY [facility] Last Admin: 04/23/24 10:10 Dose: 9 mg Polyethylene Glycol (Polyethylene Glycol 3350 17 Gm Powd.Pack) 17 gm PO DAILY [facility] Last Admin: 04/23/24 10:11 Dose: 17 gm Senna (Sennosides 8.6 Mg Tablet) 17.2 mg PO BID [facility] Last Admin: 04/23/24 10:07 Dose: 17.2 mg Simethicone (Simethicone 80 Mg Tab.Chew) 80 mg PO QID [facility] Last Admin: 04/23/24 10:09 Dose: 80 mg Tramadol HCl (Tramadol Hcl 50 Mg Tablet) 50 mg PO Q4H PRN PRN Reason: Pain, Severe (Pain Scale 7-10) Last Admin: 04/22/24 20:35 Dose: 50 mg Trazodone HCl (Trazodone Hcl 25 Mg Halftab) 25 mg PO BEDTIME PRN PRN Reason: Insomnia Last Admin: 04/19/24 21:01 Dose: 25 mg Trolamine Salicylate (Trolamine Salicylate 10 % Cream 141 Gm Tube) 1 appl TOPICAL TID PRN PRN Reason: arthritis sx Last Admin: 04/11/24 20:48 Dose: 1 appl Allergies Allergies Allergy/AdvReac Type Severity Reaction Status Date / Time amoxicillin Allergy Unknown Verified 03/06/24 17:04 aripiprazole [From Abilify] Allergy Unknown Verified 03/06/24 17:20 Barbiturates Allergy Nausea and Verified 03/06/24 17:20 Vomiting ceftriaxone Allergy Unknown Verified 03/06/24 17:20 ciprofloxacin Allergy Unknown Verified 03/06/24 17:20 Latex, Natural Rubber Allergy Hives Verified 03/06/24 17:20 oxycodone Allergy Unknown Verified 03/06/24 17:20 Penicillins Allergy Unknown Verified 03/06/24 17:20 Sulfa (Sulfonamide Allergy Blister Verified 03/06/24 17:20 Antibiotics) venlafaxine [From Effexor] Allergy Unknown Verified 03/06/24 17:20 Venlafaxine Analogues Allergy Unknown Verified 03/06/24 17:20 Assessment & Plan Assessment & Plan (1) Schizoaffective disorder: Status: Acute Code(s): F25.9 - Schizoaffective disorder, unspecified Assessment and Plan: No convincing evidence of a seizure disorder or eye witness account. EEG ding snot show any seizure activity. Would not recommend starting any anti epileptic drugs. Plan 04/23: Continue tx. Reason for continued inpatient stay Substantial Risk for: rapid decompensation Time Spent With Patient Time: Total time managing care of this patient today ____ minutes.
[2024-04-23] MEDS: Ibuprofen 400 MG TABLET PO (13:37)
[2024-04-23 14:47] VITALS: BP 128/60; PULSE 78; O2SAT 99
[2024-04-23] MEDS: traMADoL HCL 50 MG TABLET PO (15:26)
[2024-04-23 20:00] VITALS: BP 125/64; PULSE 62; TEMP 36.2; O2SAT 100
[2024-04-23] MEDS: bisacodyL 5 MG TABLET.DR 10 MG PO (22:14)
[2024-04-23] MEDS: Mirtazapine 7.5 MG TABLET PO (22:16)
[2024-04-24 08:00] VITALS: BP 100/59; PULSE 82; RESP 16; TEMP 36.3; O2SAT 100
[2024-04-24] MEDS: polyethylene glycoL 3350 17 GM POWD.PACK PO (09:02)
[2024-04-24] MEDS: Lidocaine 4 % Patch ADH..PATCH 1 PATCH TRANSDERMA (09:02)
[2024-04-24] MEDS: Docusate Sodium 100 MG CAPSULE PO (09:03)
[2024-04-24] MEDS: Gabapentin 300 MG CAPSULE PO ×3 (09:03→21:28)
[2024-04-24] MEDS: fluPHENAZine HCl 1 MG TABLET 4 MG PO ×2 (09:03→21:28)
[2024-04-24] MEDS: Multivitamin TABLET 1 TAB PO (09:04)
[2024-04-24] MEDS: Losartan Potassium 50 MG TABLET PO (09:04)
[2024-04-24] MEDS: Escitalopram Oxalate 5 MG TABLET PO (09:05)
[2024-04-24] MEDS: Famotidine 20 MG TABLET 40 MG PO (09:05)
[2024-04-24] MEDS: lamoTRIgine 25 MG TABLET PO ×2 (09:05→21:29)
[2024-04-24] MEDS: levETIRAcetam 1,000 MG TABLET 1000 MG PO ×2 (09:05→21:29)
[2024-04-24] MEDS: Metoprolol Succinate ER 50 MG TAB.ER.24H PO (09:05)
[2024-04-24] MEDS: Simethicone 80 MG TAB.CHEW PO ×4 (09:06→21:34)
[2024-04-24] MEDS: Paliperidone ER 9 MG TAB.ER.24 PO (09:06)
[2024-04-24] MEDS: Apixaban 2.5 MG TABLET PO ×2 (09:06→21:27)
[2024-04-24] MEDS: Benztropine Mesylate 0.5 MG TABLET PO ×2 (09:07→21:27)
[2024-04-24] MEDS: Ibuprofen 400 MG TABLET PO ×2 (09:21→21:29)
[2024-04-24] MEDS: Acetaminophen 325 MG TABLET 650 MG PO (12:19)
--- NOTE | 2024-04-24 12:25 | P.PNPSI_ITS ---
Subjective Subjective Date of Service: 04/24/24 Reason For Visit: Schizoaffective Disorder Bipolar Type Subjective Notes: Conditional Voluntary Interim History: Pt slept through the night. Pt working with PT, good improvement. She denies SI/HI. No behavioral concerns. She is looking forward to transition to new place. VS stable. Review of Systems Review of Systems anxiety pseudoseizure activity reported Yes all other systems are reviewed and are negative and Unobtainable due to mental status Mental Status Exam Mental Status Exam Narrative: Pt sleeping calmly this a.m. Patient Appearance: Appropriate Patient Orientation: Person, Place, Time and Situation Level of Consciousness: Alert Patient Behavior: Talkative and Good Eye Contact Mood Description: Appropriate Affect Description: Appropriate Patient Cognition Impaired: No Ability to Follow Directions: Good Speech Pattern: Spontaneous Speech (with intermittent grunting) Memory Description: Remote Impaired (pt report), Episodic Impaired (pt report), Recent Impaired (pt report) and Working Impaired (pt report) Diagnostics Vital Signs (24Hr): Vital Signs - 24 hr 04/23/24 14:47 04/23/24 20:00 04/24/24 08:00 Temperature 97.1 F 97.3 F Pulse Rate 78 62 82 Respiratory Rate 16 Blood Pressure 128/60 125/64 100/59 L Pulse Oximetry 99 100 100 Oxygen Delivery Method Room Air Room Air BMI result Body Mass Index 25.7 Labs 04/04/24 10:34 04/04/24 10:34 Imaging Radiology Impressions: ITS Impressions Lumbar Spine X-Ray 04/08/24 11:07 IMPRESSION: 1. There is moderate degenerative disease at L2-L3 and L3-L4, and marked degenerative disc disease is seen at L5-S1. 2. There is multi-level lumbar spondylosis and endplate arthropathy. Medications Medications Current Medications Acetaminophen (Acetaminophen 325 Mg Tablet) 650 mg PO Q6H PRN PRN Reason: Headache/Pain Mild Scale (1-3) Last Admin: 04/24/24 12:19 Dose: 650 mg Al Hydroxide/Mg Hydroxide (Magnesium Hydrox/Alum Hydrox 30 Ml Oral.Susp) 30 ml PO Q6H PRN PRN Reason: Heartburn/Nausea Apixaban (Apixaban 2.5 Mg Tablet) 2.5 mg PO BID [facility] Last Admin: 04/24/24 09:06 Dose: 2.5 mg Benztropine Mesylate (Benztropine Mesylate 0.5 Mg Tablet) 0.5 mg PO BID [facility] Last Admin: 04/24/24 09:07 Dose: 0.5 mg Bisacodyl (Bisacodyl 5 Mg Tablet.Dr) 10 mg PO BEDTIME [facility] Last Admin: 04/23/24 22:14 Dose: 10 mg Clonazepam (Clonazepam 0.5 Mg Tablet) 0.5 mg PO BID PRN PRN Reason: anxiety Last Admin: 04/21/24 15:40 Dose: 0.5 mg Cyclobenzaprine HCl (Cyclobenzaprine Hcl 10 Mg Tablet) 10 mg PO TID PRN PRN Reason: muscle spasms Last Admin: 04/22/24 17:17 Dose: 10 mg Docusate Sodium (Docusate Sodium 100 Mg Capsule) 100 mg PO DAILY [facility] Last Admin: 04/24/24 09:03 Dose: 100 mg Escitalopram Oxalate (Escitalopram Oxalate 5 Mg Tablet) 5 mg PO DAILY [facility] Last Admin: 04/24/24 09:05 Dose: 5 mg Famotidine (Famotidine 20 Mg Tablet) 40 mg PO DAILY [facility] Last Admin: 04/24/24 09:05 Dose: 40 mg Fluphenazine HCl (Fluphenazine Hcl 1 Mg Tablet) 4 mg PO BID [facility] Last Admin: 04/24/24 09:03 Dose: 4 mg Gabapentin (Gabapentin 300 Mg Capsule) 300 mg PO TID [facility] Last Admin: 04/24/24 09:03 Dose: 300 mg Ibuprofen (Ibuprofen 400 Mg Tablet) 400 mg PO Q4H PRN PRN Reason: arthritis Last Admin: 04/24/24 09:21 Dose: 400 mg Lamotrigine (Lamotrigine 25 Mg Tablet) 25 mg PO BID [facility] Last Admin: 04/24/24 09:05 Dose: 25 mg Levetiracetam (Levetiracetam 1,000 Mg Tablet) 1,000 mg PO BID [facility] Last Admin: 04/24/24 09:05 Dose: 1,000 mg Lidocaine (Lidocaine 4 % Patch Adh..Patch) 1 patch TRANSDERMA DAILY [facility] Last Admin: 04/24/24 09:02 Dose: 1 patch Losartan Potassium (Losartan Potassium 50 Mg Tablet) 50 mg PO DAILY [facility]; Protocol Last Admin: 04/24/24 09:04 Dose: 50 mg Magnesium Hydroxide (Milk Of Magnesia 30 Ml Oral.Susp) 30 ml PO DAILY PRN PRN Reason: Constipation Last Admin: 04/22/24 20:36 Dose: 30 ml Metoprolol Succinate (Metoprolol Succinate Er 50 Mg Tab.Er.24h) 50 mg PO DAILY [facility]; Protocol Last Admin: 04/24/24 09:05 Dose: 50 mg Mirtazapine (Mirtazapine 7.5 Mg Tablet) 7.5 mg PO BEDTIME [facility] Last Admin: 04/23/24 22:16 Dose: 7.5 mg Multi-Ingred Cream/Lotion/Oil/Oint (Mineral Oil/Petrolatum,White 106 Gm Tube) 1 appl TOPICAL TID [facility]; Protocol Last Admin: 04/24/24 09:11 Dose: Not Given Multivitamins/Vitamin C (Multivitamin Tablet) 1 tab PO DAILY [facility] Last Admin: 04/24/24 09:04 Dose: 1 tab Nicotine Polacrilex (Nicotine Polacrilex 2 Mg Gum) 2 mg BUCCAL Q2H PRN PRN Reason: Nicotine Cravings Pt Own (Bengay (Ultrastreng)) 1 applic TOPICAL TID PRN PRN Reason: arthritis pain Last Admin: 04/24/24 09:20 Dose: 1 applic Paliperidone (Paliperidone Er 9 Mg Tab.Er.24) 9 mg PO DAILY [facility] Last Admin: 04/24/24 09:06 Dose: 9 mg Polyethylene Glycol (Polyethylene Glycol 3350 17 Gm Powd.Pack) 17 gm PO DAILY [facility] Last Admin: 04/24/24 09:02 Dose: 17 gm Senna (Sennosides 8.6 Mg Tablet) 17.2 mg PO BID [facility] Last Admin: 04/24/24 09:16 Dose: Not Given Simethicone (Simethicone 80 Mg Tab.Chew) 80 mg PO QID [facility] Last Admin: 04/24/24 12:19 Dose: 80 mg Tramadol HCl (Tramadol Hcl 50 Mg Tablet) 50 mg PO Q4H PRN PRN Reason: Pain, Severe (Pain Scale 7-10) Last Admin: 04/23/24 15:26 Dose: 50 mg Trazodone HCl (Trazodone Hcl 25 Mg Halftab) 25 mg PO BEDTIME PRN PRN Reason: Insomnia Last Admin: 04/19/24 21:01 Dose: 25 mg Trolamine Salicylate (Trolamine Salicylate 10 % Cream 141 Gm Tube) 1 appl TOPICAL TID PRN PRN Reason: arthritis sx Last Admin: 04/11/24 20:48 Dose: 1 appl Allergies Allergies Allergy/AdvReac Type Severity Reaction Status Date / Time amoxicillin Allergy Unknown Verified 03/06/24 17:04 aripiprazole [From Abilify] Allergy Unknown Verified 03/06/24 17:20 Barbiturates Allergy Nausea and Verified 03/06/24 17:20 Vomiting ceftriaxone Allergy Unknown Verified 03/06/24 17:20 ciprofloxacin Allergy Unknown Verified 03/06/24 17:20 Latex, Natural Rubber Allergy Hives Verified 03/06/24 17:20 oxycodone Allergy Unknown Verified 03/06/24 17:20 Penicillins Allergy Unknown Verified 03/06/24 17:20 Sulfa (Sulfonamide Allergy Blister Verified 03/06/24 17:20 Antibiotics) venlafaxine [From Effexor] Allergy Unknown Verified 03/06/24 17:20 Venlafaxine Analogues Allergy Unknown Verified 03/06/24 17:20 Assessment & Plan Assessment & Plan (1) Schizoaffective disorder: Status: Acute Code(s): F25.9 - Schizoaffective disorder, unspecified Assessment and Plan: No convincing evidence of a seizure disorder or eye witness account. EEG ding snot show any seizure activity. Would not recommend starting any anti epileptic drugs. Plan 04/24: Continue tx. Reason for continued inpatient stay Substantial Risk for: inability to function Time Spent With Patient Time: Total time managing care of this patient today ____ minutes.
[2024-04-24 14:02] VITALS: BP 100/59; PULSE 82; O2SAT 100
[2024-04-24 20:00] VITALS: BP 112/60; PULSE 70; RESP 20; TEMP 36.3; O2SAT 99
[2024-04-24] MEDS: bisacodyL 5 MG TABLET.DR 10 MG PO (21:28)
[2024-04-24] MEDS: traZODone HCL 25 MG HALFTAB PO (21:29)
[2024-04-24] MEDS: Mirtazapine 7.5 MG TABLET PO (21:29)
[2024-04-24] MEDS: Sennosides 8.6 MG TABLET 17.2 MG PO (21:29)
[2024-04-25] MEDS: Mineral Oil/Petrolatum,White 106 GM Tube 1 APPL TOPICAL (08:48)
[2024-04-25] MEDS: Sennosides 8.6 MG TABLET 17.2 MG PO ×2 (08:49→21:30)
[2024-04-25] MEDS: fluPHENAZine HCl 1 MG TABLET 4 MG PO ×2 (08:49→21:32)
[2024-04-25] MEDS: Benztropine Mesylate 0.5 MG TABLET PO ×2 (08:49→21:32)
[2024-04-25] MEDS: Gabapentin 300 MG CAPSULE PO ×3 (08:49→21:33)
[2024-04-25] MEDS: Apixaban 2.5 MG TABLET PO ×2 (08:49→21:31)
[2024-04-25] MEDS: Paliperidone ER 9 MG TAB.ER.24 PO (08:49)
[2024-04-25] MEDS: Famotidine 20 MG TABLET 40 MG PO (08:50)
[2024-04-25] MEDS: Simethicone 80 MG TAB.CHEW PO ×3 (08:50→21:29)
[2024-04-25] MEDS: levETIRAcetam 1,000 MG TABLET 1000 MG PO ×2 (08:50→21:30)
[2024-04-25] MEDS: lamoTRIgine 25 MG TABLET PO ×2 (08:50→21:30)
[2024-04-25] MEDS: Multivitamin TABLET 1 TAB PO (08:50)
[2024-04-25] MEDS: Escitalopram Oxalate 5 MG TABLET PO (08:50)
[2024-04-25] MEDS: polyethylene glycoL 3350 17 GM POWD.PACK PO (08:50)
[2024-04-25] MEDS: Docusate Sodium 100 MG CAPSULE PO (08:50)
[2024-04-25] MEDS: Lidocaine 4 % Patch ADH..PATCH 1 PATCH TRANSDERMA (08:55)
[2024-04-25 09:02] VITALS: BP 151/69; PULSE 68; RESP 16; TEMP 36; O2SAT 98
[2024-04-25] MEDS: Ibuprofen 400 MG TABLET PO (09:04)
[2024-04-25] MEDS: Losartan Potassium 50 MG TABLET PO (09:04)
[2024-04-25] MEDS: traMADoL HCL 50 MG TABLET PO (09:05)
[2024-04-25] MEDS: Metoprolol Succinate ER 50 MG TAB.ER.24H PO (09:05)
--- NOTE | 2024-04-25 11:44 | HO.PSYCHPN ---
Subjective Subjective Date of Service: 04/25/24 Reason For Visit: Schizoaffective Disorder Bipolar Type Interim History: Met with patient; discussed with team Patient remains overall doing better; complains of back pain and asks for bengay which nurses able to get for her. Otherwise friendly and intermittently getting out of her room, into the milieu. Mental Status Exam Mental Status Exam Narrative: Pt sleeping calmly this a.m. Patient Appearance: Appropriate Patient Orientation: Person, Place, Time and Situation Level of Consciousness: Alert Patient Behavior: Talkative and Good Eye Contact Mood Description: Appropriate Affect Description: Appropriate Patient Cognition Impaired: No Ability to Follow Directions: Good Speech Pattern: Spontaneous Speech (with intermittent grunting) Memory Description: Remote Impaired (pt report), Episodic Impaired (pt report), Recent Impaired (pt report) and Working Impaired (pt report) Diagnostics Vital Signs (24Hr): Vital Signs - 24 hr 04/24/24 14:02 04/24/24 20:00 04/25/24 09:02 Temperature 97.3 F 96.8 F Pulse Rate 82 70 68 Respiratory Rate 20 16 Blood Pressure 100/59 L 112/60 151/69 H Pulse Oximetry 100 99 98 Oxygen Delivery Method Room Air Room Air BMI result Body Mass Index 25.7 Labs 04/04/24 10:34 04/04/24 10:34 Imaging Radiology Impressions: ITS Impressions Lumbar Spine X-Ray 04/08/24 11:07 IMPRESSION: 1. There is moderate degenerative disease at L2-L3 and L3-L4, and marked degenerative disc disease is seen at L5-S1. 2. There is multi-level lumbar spondylosis and endplate arthropathy. Medications Medications Current Medications Acetaminophen (Acetaminophen 325 Mg Tablet) 650 mg PO Q6H PRN PRN Reason: Headache/Pain Mild Scale (1-3) Last Admin: 04/24/24 12:19 Dose: 650 mg Al Hydroxide/Mg Hydroxide (Magnesium Hydrox/Alum Hydrox 30 Ml Oral.Susp) 30 ml PO Q6H PRN PRN Reason: Heartburn/Nausea Apixaban (Apixaban 2.5 Mg Tablet) 2.5 mg PO BID [facility] Last Admin: 04/25/24 08:49 Dose: 2.5 mg Benztropine Mesylate (Benztropine Mesylate 0.5 Mg Tablet) 0.5 mg PO BID [facility] Last Admin: 04/25/24 08:49 Dose: 0.5 mg Bisacodyl (Bisacodyl 5 Mg Tablet.Dr) 10 mg PO BEDTIME [facility] Last Admin: 04/24/24 21:28 Dose: 10 mg Clonazepam (Clonazepam 0.5 Mg Tablet) 0.5 mg PO BID PRN PRN Reason: anxiety Last Admin: 04/21/24 15:40 Dose: 0.5 mg Cyclobenzaprine HCl (Cyclobenzaprine Hcl 10 Mg Tablet) 10 mg PO TID PRN PRN Reason: muscle spasms Last Admin: 04/22/24 17:17 Dose: 10 mg Docusate Sodium (Docusate Sodium 100 Mg Capsule) 100 mg PO DAILY [facility] Last Admin: 04/25/24 08:50 Dose: 100 mg Escitalopram Oxalate (Escitalopram Oxalate 5 Mg Tablet) 5 mg PO DAILY [facility] Last Admin: 04/25/24 08:50 Dose: 5 mg Famotidine (Famotidine 20 Mg Tablet) 40 mg PO DAILY [facility] Last Admin: 04/25/24 08:50 Dose: 40 mg Fluphenazine HCl (Fluphenazine Hcl 1 Mg Tablet) 4 mg PO BID [facility] Last Admin: 04/25/24 08:49 Dose: 4 mg Gabapentin (Gabapentin 300 Mg Capsule) 300 mg PO TID [facility] Last Admin: 04/25/24 08:49 Dose: 300 mg Ibuprofen (Ibuprofen 400 Mg Tablet) 400 mg PO Q4H PRN PRN Reason: arthritis Last Admin: 04/25/24 09:04 Dose: 400 mg Lamotrigine (Lamotrigine 25 Mg Tablet) 25 mg PO BID [facility] Last Admin: 04/25/24 08:50 Dose: 25 mg Levetiracetam (Levetiracetam 1,000 Mg Tablet) 1,000 mg PO BID [facility] Last Admin: 04/25/24 08:50 Dose: 1,000 mg Lidocaine (Lidocaine 4 % Patch Adh..Patch) 1 patch TRANSDERMA DAILY [facility] Last Admin: 04/25/24 08:55 Dose: 1 patch Losartan Potassium (Losartan Potassium 50 Mg Tablet) 50 mg PO DAILY [facility]; Protocol Last Admin: 04/25/24 09:04 Dose: 50 mg Magnesium Hydroxide (Milk Of Magnesia 30 Ml Oral.Susp) 30 ml PO DAILY PRN PRN Reason: Constipation Last Admin: 04/22/24 20:36 Dose: 30 ml Metoprolol Succinate (Metoprolol Succinate Er 50 Mg Tab.Er.24h) 50 mg PO DAILY [facility]; Protocol Last Admin: 04/25/24 09:05 Dose: 50 mg Mirtazapine (Mirtazapine 7.5 Mg Tablet) 7.5 mg PO BEDTIME [facility] Last Admin: 04/24/24 21:29 Dose: 7.5 mg Multi-Ingred Cream/Lotion/Oil/Oint (Mineral Oil/Petrolatum,White 106 Gm Tube) 1 appl TOPICAL TID [facility]; Protocol Last Admin: 04/25/24 08:48 Dose: 1 appl Multivitamins/Vitamin C (Multivitamin Tablet) 1 tab PO DAILY [facility] Last Admin: 04/25/24 08:50 Dose: 1 tab Nicotine Polacrilex (Nicotine Polacrilex 2 Mg Gum) 2 mg BUCCAL Q2H PRN PRN Reason: Nicotine Cravings Pt Own (Bengay (Ultrastrength)) 1 applic TOPICAL TID PRN PRN Reason: arthritis pain Last Admin: 04/24/24 18:35 Dose: 1 applic Paliperidone (Paliperidone Er 9 Mg Tab.Er.24) 9 mg PO DAILY [facility] Last Admin: 04/25/24 08:49 Dose: 9 mg Polyethylene Glycol (Polyethylene Glycol 3350 17 Gm Powd.Pack) 17 gm PO DAILY [facility] Last Admin: 04/25/24 08:50 Dose: 17 gm Senna (Sennosides 8.6 Mg Tablet) 17.2 mg PO BID [facility] Last Admin: 04/25/24 08:49 Dose: 17.2 mg Simethicone (Simethicone 80 Mg Tab.Chew) 80 mg PO QID [facility] Last Admin: 04/25/24 08:50 Dose: 80 mg Tramadol HCl (Tramadol Hcl 50 Mg Tablet) 50 mg PO Q4H PRN PRN Reason: Pain, Severe (Pain Scale 7-10) Last Admin: 04/25/24 09:05 Dose: 50 mg Trazodone HCl (Trazodone Hcl 25 Mg Halftab) 25 mg PO BEDTIME PRN PRN Reason: Insomnia Last Admin: 04/24/24 21:29 Dose: 25 mg Trolamine Salicylate (Trolamine Salicylate 10 % Cream 141 Gm Tube) 1 appl TOPICAL TID PRN PRN Reason: arthritis sx Last Admin: 04/11/24 20:48 Dose: 1 appl Allergies Allergies Allergy/AdvReac Type Severity Reaction Status Date / Time amoxicillin Allergy Unknown Verified 03/06/24 17:04 aripiprazole [From Abilify] Allergy Unknown Verified 03/06/24 17:20 Barbiturates Allergy Nausea and Verified 03/06/24 17:20 Vomiting ceftriaxone Allergy Unknown Verified 03/06/24 17:20 ciprofloxacin Allergy Unknown Verified 03/06/24 17:20 Latex, Natural Rubber Allergy Hives Verified 03/06/24 17:20 oxycodone Allergy Unknown Verified 03/06/24 17:20 Penicillins Allergy Unknown Verified 03/06/24 17:20 Sulfa (Sulfonamide Allergy Blister Verified 03/06/24 17:20 Antibiotics) venlafaxine [From Effexor] Allergy Unknown Verified 03/06/24 17:20 Venlafaxine Analogues Allergy Unknown Verified 03/06/24 17:20 Assessment & Plan Assessment & Plan (1) Schizoaffective disorder: Status: Acute Code(s): F25.9 - Schizoaffective disorder, unspecified Assessment and Plan: No convincing evidence of a seizure disorder or eye witness account. EEG ding snot show any seizure activity. Would not recommend starting any anti epileptic drugs. Plan 04/24: Continue tx. 04/25 continue current treatment plan Patient educated on: diagnosis and medical condition Informed Consent: understands Reason for continued inpatient stay Substantial Risk for: stable for discharge Time Spent With Patient Time: Total time managing care of this patient today ____ minutes.
[2024-04-25] MEDS: Acetaminophen 325 MG TABLET 650 MG PO ×2 (14:30→21:41)
[2024-04-25] MEDS: Cyclobenzaprine HCl 10 MG TABLET PO ×2 (14:30→21:40)
[2024-04-25] MEDS: Trolamine Salicylate 10 % Cream 141 gm Tube 1 APPL TOPICAL (14:47)
[2024-04-25 20:00] VITALS: BP 108/62; PULSE 65; TEMP 36.4
[2024-04-25] MEDS: traZODone HCL 25 MG HALFTAB PO (21:30)
[2024-04-25] MEDS: Mirtazapine 7.5 MG TABLET PO (21:31)
[2024-04-25] MEDS: bisacodyL 5 MG TABLET.DR 10 MG PO (21:31)
[2024-04-26 08:00] VITALS: PULSE 78; RESP 18; TEMP 36.1; O2SAT 98
[2024-04-26] MEDS: lamoTRIgine 25 MG TABLET PO ×2 (08:44→21:06)
[2024-04-26] MEDS: Simethicone 80 MG TAB.CHEW PO ×4 (08:44→21:06)
[2024-04-26] MEDS: Gabapentin 300 MG CAPSULE PO ×3 (08:44→21:06)
[2024-04-26] MEDS: Sennosides 8.6 MG TABLET 17.2 MG PO ×2 (08:44→21:07)
[2024-04-26] MEDS: polyethylene glycoL 3350 17 GM POWD.PACK PO (08:45)
[2024-04-26] MEDS: fluPHENAZine HCl 1 MG TABLET 4 MG PO ×2 (08:45→21:05)
[2024-04-26] MEDS: Paliperidone ER 9 MG TAB.ER.24 PO (08:45)
[2024-04-26] MEDS: levETIRAcetam 1,000 MG TABLET 1000 MG PO ×2 (08:45→21:06)
[2024-04-26] MEDS: Famotidine 20 MG TABLET 40 MG PO (08:45)
[2024-04-26] MEDS: Multivitamin TABLET 1 TAB PO (08:45)
[2024-04-26] MEDS: Docusate Sodium 100 MG CAPSULE PO (08:45)
[2024-04-26] MEDS: Escitalopram Oxalate 5 MG TABLET PO (08:45)
[2024-04-26] MEDS: Benztropine Mesylate 0.5 MG TABLET PO ×2 (08:45→21:05)
[2024-04-26] MEDS: Lidocaine 4 % Patch ADH..PATCH 1 PATCH TRANSDERMA (09:16)
[2024-04-26] MEDS: Apixaban 2.5 MG TABLET PO ×2 (09:18→21:06)
[2024-04-26] MEDS: Acetaminophen 325 MG TABLET 650 MG PO (09:18)
[2024-04-26] MEDS: Ibuprofen 400 MG TABLET PO ×2 (10:33→20:06)
--- NOTE | 2024-04-26 11:30 | P.PNPSI_ITS ---
Subjective Subjective Date of Service: 04/26/24 Reason For Visit: Schizoaffective Disorder Bipolar Type Interim History: Met with patient; discussed with team Patient overall seems to be doing much better, out in the milieu, friendly with grant writer, saying that she is good other than back pain. Attended fresh air break with peers Mental Status Exam Mental Status Exam Patient Appearance: Appropriate Patient Orientation: Person, Place, Time and Situation Level of Consciousness: Alert Patient Behavior: Talkative and Good Eye Contact Mood Description: Appropriate Affect Description: Appropriate Patient Cognition Impaired: No Ability to Follow Directions: Good Speech Pattern: Spontaneous Speech (with intermittent grunting) Memory Description: Remote Impaired (pt report), Episodic Impaired (pt report), Recent Impaired (pt report) and Working Impaired (pt report) Diagnostics Vital Signs (24Hr): Vital Signs - 24 hr 04/25/24 20:00 04/26/24 08:00 Temperature 97.5 F 97 F Pulse Rate 65 78 Respiratory Rate 18 Blood Pressure 108/62 Pulse Oximetry 98 Oxygen Delivery Method Room Air BMI result Body Mass Index 25.7 Labs 04/04/24 10:34 04/04/24 10:34 Imaging Radiology Impressions: ITS Impressions Lumbar Spine X-Ray 04/08/24 11:07 IMPRESSION: 1. There is moderate degenerative disease at L2-L3 and L3-L4, and marked degenerative disc disease is seen at L5-S1. 2. There is multi-level lumbar spondylosis and endplate arthropathy. Medications Medications Current Medications Acetaminophen (Acetaminophen 325 Mg Tablet) 650 mg PO Q6H PRN PRN Reason: Headache/Pain Mild Scale (1-3) Last Admin: 04/26/24 09:18 Dose: 650 mg Al Hydroxide/Mg Hydroxide (Magnesium Hydrox/Alum Hydrox 30 Ml Oral.Susp) 30 ml PO Q6H PRN PRN Reason: Heartburn/Nausea Apixaban (Apixaban 2.5 Mg Tablet) 2.5 mg PO BID [facility] Last Admin: 04/26/24 09:18 Dose: 2.5 mg Benztropine Mesylate (Benztropine Mesylate 0.5 Mg Tablet) 0.5 mg PO BID [facility] Last Admin: 04/26/24 08:45 Dose: 0.5 mg Bisacodyl (Bisacodyl 5 Mg Tablet.Dr) 10 mg PO BEDTIME [facility] Last Admin: 07/27/24 21:31 Dose: 10 mg Cyclobenzaprine HCl (Cyclobenzaprine Hcl 10 Mg Tablet) 10 mg PO TID PRN PRN Reason: muscle spasms Last Admin: 04/25/24 21:40 Dose: 10 mg Docusate Sodium (Docusate Sodium 100 Mg Capsule) 100 mg PO DAILY [facility] Last Admin: 04/26/24 08:45 Dose: 100 mg Escitalopram Oxalate (Escitalopram Oxalate 5 Mg Tablet) 5 mg PO DAILY [facility] Last Admin: 04/26/24 08:45 Dose: 5 mg Famotidine (Famotidine 20 Mg Tablet) 40 mg PO DAILY [facility] Last Admin: 04/26/24 08:45 Dose: 40 mg Fluphenazine HCl (Fluphenazine Hcl 1 Mg Tablet) 4 mg PO BID [facility] Last Admin: 04/26/24 08:45 Dose: 4 mg Gabapentin (Gabapentin 300 Mg Capsule) 300 mg PO TID [facility] Last Admin: 04/26/24 08:44 Dose: 300 mg Ibuprofen (Ibuprofen 400 Mg Tablet) 400 mg PO Q4H PRN PRN Reason: arthritis Last Admin: 04/26/24 10:33 Dose: 400 mg Lamotrigine (Lamotrigine 25 Mg Tablet) 25 mg PO BID [facility] Last Admin: 04/26/24 08:44 Dose: 25 mg Levetiracetam (Levetiracetam 1,000 Mg Tablet) 1,000 mg PO BID [facility] Last Admin: 04/26/24 08:45 Dose: 1,000 mg Lidocaine (Lidocaine 4 % Patch Adh..Patch) 1 patch TRANSDERMA DAILY [facility] Last Admin: 04/26/24 09:16 Dose: 1 patch Losartan Potassium (Losartan Potassium 50 Mg Tablet) 50 mg PO DAILY [facility]; Protocol Last Admin: 04/26/24 09:19 Dose: Not Given Magnesium Hydroxide (Milk Of Magnesia 30 Ml Oral.Susp) 30 ml PO DAILY PRN PRN Reason: Constipation Last Admin: 04/22/24 20:36 Dose: 30 ml Metoprolol Succinate (Metoprolol Succinate Er 50 Mg Tab.Er.24h) 50 mg PO DAILY [facility]; Protocol Last Admin: 04/26/24 09:19 Dose: Not Given Mirtazapine (Mirtazapine 7.5 Mg Tablet) 7.5 mg PO BEDTIME [facility] Last Admin: 04/25/24 21:31 Dose: 7.5 mg Multi-Ingred Cream/Lotion/Oil/Oint (Mineral Oil/Petrolatum,White 106 Gm Tube) 1 appl TOPICAL TID [facility]; Protocol Last Admin: 04/26/24 09:19 Dose: Not Given Multivitamins/Vitamin C (Multivitamin Tablet) 1 tab PO DAILY [facility] Last Admin: 04/26/24 08:45 Dose: 1 tab Nicotine Polacrilex (Nicotine Polacrilex 2 Mg Gum) 2 mg BUCCAL Q2H PRN PRN Reason: Nicotine Cravings Pt Own (Bengay (Ultrastrength)) 1 applic TOPICAL TID PRN PRN Reason: arthritis pain Last Admin: 04/24/24 18:35 Dose: 1 applic Paliperidone (Paliperidone Er 9 Mg Tab.Er.24) 9 mg PO DAILY [facility] Last Admin: 04/26/24 08:45 Dose: 9 mg Polyethylene Glycol (Polyethylene Glycol 3350 17 Gm Powd.Pack) 17 gm PO DAILY [facility] Last Admin: 04/26/24 08:45 Dose: 17 gm Senna (Sennosides 8.6 Mg Tablet) 17.2 mg PO BID [facility] Last Admin: 04/26/24 08:44 Dose: 17.2 mg Simethicone (Simethicone 80 Mg Tab.Chew) 80 mg PO QID [facility] Last Admin: 04/26/24 08:44 Dose: 80 mg Trazodone HCl (Trazodone Hcl 25 Mg Halftab) 25 mg PO BEDTIME PRN PRN Reason: Insomnia Last Admin: 04/25/24 21:30 Dose: 25 mg Trolamine Salicylate (Trolamine Salicylate 10 % Cream 141 Gm Tube) 1 appl TOPICAL TID PRN PRN Reason: arthritis sx Last Admin: 04/25/24 14:47 Dose: 1 appl Allergies Allergies Allergy/AdvReac Type Severity Reaction Status Date / Time amoxicillin Allergy Unknown Verified 03/06/24 17:04 aripiprazole [From Abilify] Allergy Unknown Verified 03/06/24 17:20 Barbiturates Allergy Nausea and Verified 03/06/24 17:20 Vomiting ceftriaxone Allergy Unknown Verified 03/06/24 17:20 ciprofloxacin Allergy Unknown Verified 03/06/24 17:20 Latex, Natural Rubber Allergy Hives Verified 03/06/24 17:20 oxycodone Allergy Unknown Verified 03/06/24 17:20 Penicillins Allergy Unknown Verified 03/06/24 17:20 Sulfa (Sulfonamide Allergy Blister Verified 03/06/24 17:20 Antibiotics) venlafaxine [From Effexor] Allergy Unknown Verified 03/06/24 17:20 Venlafaxine Analogues Allergy Unknown Verified 03/06/24 17:20 Assessment & Plan Assessment & Plan (1) Schizoaffective disorder: Status: Acute Code(s): F25.9 - Schizoaffective disorder, unspecified Assessment and Plan: No convincing evidence of a seizure disorder or eye witness account. EEG ding snot show any seizure activity. Would not recommend starting any anti epileptic drugs. Plan 04/24: Continue tx. 04/25 continue current treatment plan 04/26 continue current treatment plan Patient educated on: diagnosis and medical condition Informed Consent: understands Reason for continued inpatient stay Substantial Risk for: med/psych decompensation Time Spent With Patient Time: Total time managing care of this patient today ____ minutes.
[2024-04-26] MEDS: Cyclobenzaprine HCl 10 MG TABLET PO ×2 (12:11→20:05)
[2024-04-26 20:00] VITALS: BP 105/57; PULSE 70; RESP 16; TEMP 36.5; O2SAT 98
[2024-04-26] MEDS: Mirtazapine 7.5 MG TABLET PO (21:06)
[2024-04-26] MEDS: traZODone HCL 25 MG HALFTAB PO (21:06)
[2024-04-26] MEDS: bisacodyL 5 MG TABLET.DR 10 MG PO (21:06)
[2024-04-27 08:00] VITALS: PULSE 92; RESP 16; TEMP 36.1; O2SAT 98
[2024-04-27] MEDS: polyethylene glycoL 3350 17 GM POWD.PACK PO (09:36)
[2024-04-27] MEDS: Simethicone 80 MG TAB.CHEW PO ×4 (09:37→21:42)
[2024-04-27] MEDS: levETIRAcetam 1,000 MG TABLET 1000 MG PO ×2 (09:38→21:41)
[2024-04-27] MEDS: Apixaban 2.5 MG TABLET PO ×2 (09:38→21:42)
[2024-04-27] MEDS: Paliperidone ER 9 MG TAB.ER.24 PO (09:38)
[2024-04-27] MEDS: Multivitamin TABLET 1 TAB PO (09:38)
[2024-04-27] MEDS: Benztropine Mesylate 0.5 MG TABLET PO ×2 (09:38→21:41)
[2024-04-27] MEDS: Escitalopram Oxalate 5 MG TABLET PO (09:38)
[2024-04-27] MEDS: fluPHENAZine HCl 1 MG TABLET 4 MG PO ×2 (09:38→21:40)
[2024-04-27] MEDS: Cyclobenzaprine HCl 10 MG TABLET PO ×2 (09:38→14:49)
[2024-04-27] MEDS: Gabapentin 300 MG CAPSULE PO ×3 (09:38→21:42)
[2024-04-27] MEDS: Sennosides 8.6 MG TABLET 17.2 MG PO ×2 (09:38→21:41)
[2024-04-27] MEDS: Famotidine 20 MG TABLET 40 MG PO (09:38)
[2024-04-27] MEDS: Docusate Sodium 100 MG CAPSULE PO (09:38)
[2024-04-27] MEDS: lamoTRIgine 25 MG TABLET PO ×2 (09:39→21:42)
[2024-04-27] MEDS: Lidocaine 4 % Patch ADH..PATCH 1 PATCH TRANSDERMA (09:42)
[2024-04-27 09:52] VITALS: BP 110/70; PULSE 74
[2024-04-27] MEDS: Metoprolol Succinate ER 50 MG TAB.ER.24H PO (09:53)
[2024-04-27] MEDS: Losartan Potassium 50 MG TABLET PO (09:53)
[2024-04-27] MEDS: Trolamine Salicylate 10 % Cream 141 gm Tube 1 APPL TOPICAL (12:37)
[2024-04-27] MEDS: Ibuprofen 400 MG TABLET PO (13:21)
--- NOTE | 2024-04-27 16:46 | P.PNPSI_ITS ---
Subjective Subjective Date of Service: 04/27/24 Reason For Visit: Schizoaffective Disorder Bipolar Type Subjective Notes: Conditional Voluntary Healthcare Proxy: No Guardianship: No Medical Problems Affecting Mental Status: No Interim History: Improved, well groomed, interactive, positive, talking about meeting people in milieu. Self-conscious about noises she makes when anxious, encouraged to engage in milieu with others. Denies med SE, discussed her room changes, appreciative of the kindness of her peers. States she attended some groups over the weekend and found them enjoyable. Medication Compliance: Yes Side effects from medications: No Attending Groups: Yes Review of Systems Acute medical concerns: No Medical Review of Systems: unchanged Review of Systems Review of Systems I may have had a half of a little seizure, but it went away. Yes all other systems are reviewed and are negative Mental Status Exam Mental Status Exam Patient Appearance: Appropriate Patient Orientation: Person, Place, Time and Situation Level of Consciousness: Alert Patient Behavior: Talkative, Cooperative and Good Eye Contact Mood Description: Appropriate Affect Description: Appropriate Patient Cognition Impaired: No Ability to Follow Directions: Good Speech Pattern: Spontaneous Speech Memory Description: Intact Hallucinations: None Delusions: Not Present Thought Process: Intact Thought Content: positive for Intact and positive for Circumstantial Depressive Symptoms: Increased Anxiety (worry about where she will go upon discharge) Judgement: Good Diagnostics Vital Signs (24Hr): Vital Signs - 24 hr 04/26/24 20:00 04/27/24 08:00 04/27/24 09:52 Temperature 97.7 F 96.9 F Pulse Rate 70 92 74 Respiratory Rate 16 16 Blood Pressure 105/57 L 110/70 Pulse Oximetry 98 98 Oxygen Delivery Method Room Air BMI result Body Mass Index 25.7 Labs 04/04/24 10:34 04/04/24 10:34 Imaging Radiology Impressions: ITS Impressions Lumbar Spine X-Ray 04/08/24 11:07 IMPRESSION: 1. There is moderate degenerative disease at L2-L3 and L3-L4, and marked degenerative disc disease is seen at L5-S1. 2. There is multi-level lumbar spondylosis and endplate arthropathy. Medications Medications Current Medications Acetaminophen (Acetaminophen 325 Mg Tablet) 650 mg PO Q6H PRN PRN Reason: Headache/Pain Mild Scale (1-3) Last Admin: 04/26/24 09:18 Dose: 650 mg Al Hydroxide/Mg Hydroxide (Magnesium Hydrox/Alum Hydrox 30 Ml Oral.Susp) 30 ml PO Q6H PRN PRN Reason: Heartburn/Nausea Apixaban (Apixaban 2.5 Mg Tablet) 2.5 mg PO BID [facility] Last Admin: 04/27/24 09:38 Dose: 2.5 mg Benztropine Mesylate (Benztropine Mesylate 0.5 Mg Tablet) 0.5 mg PO BID [facility] Last Admin: 04/27/24 09:38 Dose: 0.5 mg Bisacodyl (Bisacodyl 5 Mg Tablet.Dr) 10 mg PO BEDTIME [facility] Last Admin: 04/26/24 21:06 Dose: 10 mg Cyclobenzaprine HCl (Cyclobenzaprine Hcl 10 Mg Tablet) 10 mg PO TID PRN PRN Reason: muscle spasms Last Admin: 04/27/24 14:49 Dose: 10 mg Docusate Sodium (Docusate Sodium 100 Mg Capsule) 100 mg PO DAILY [facility] Last Admin: 04/27/24 09:38 Dose: 100 mg Escitalopram Oxalate (Escitalopram Oxalate 5 Mg Tablet) 5 mg PO DAILY [facility] Last Admin: 04/27/24 09:38 Dose: 5 mg Famotidine (Famotidine 20 Mg Tablet) 40 mg PO DAILY [facility] Last Admin: 04/27/24 09:38 Dose: 40 mg Fluphenazine HCl (Fluphenazine Hcl 1 Mg Tablet) 4 mg PO BID [facility] Last Admin: 04/27/24 09:38 Dose: 4 mg Gabapentin (Gabapentin 300 Mg Capsule) 300 mg PO TID [facility] Last Admin: 04/27/24 14:49 Dose: 300 mg Ibuprofen (Ibuprofen 400 Mg Tablet) 400 mg PO Q4H PRN PRN Reason: arthritis Last Admin: 04/27/24 13:21 Dose: 400 mg Lamotrigine (Lamotrigine 25 Mg Tablet) 25 mg PO BID [facility] Last Admin: 04/27/24 09:39 Dose: 25 mg Levetiracetam (Levetiracetam 1,000 Mg Tablet) 1,000 mg PO BID [facility] Last Admin: 04/27/24 09:38 Dose: 1,000 mg Lidocaine (Lidocaine 4 % Patch Adh..Patch) 1 patch TRANSDERMA DAILY [facility] Last Admin: 04/27/24 09:42 Dose: 1 patch Losartan Potassium (Losartan Potassium 50 Mg Tablet) 50 mg PO DAILY [facility]; Protocol Last Admin: 04/27/24 09:53 Dose: 50 mg Magnesium Hydroxide (Milk Of Magnesia 30 Ml Oral.Susp) 30 ml PO DAILY PRN PRN Reason: Constipation Last Admin: 04/22/24 20:36 Dose: 30 ml Metoprolol Succinate (Metoprolol Succinate Er 50 Mg Tab.Er.24h) 50 mg PO DAILY [facility]; Protocol Last Admin: 04/27/24 09:53 Dose: 50 mg Mirtazapine (Mirtazapine 7.5 Mg Tablet) 7.5 mg PO BEDTIME [facility] Last Admin: 04/26/24 21:06 Dose: 7.5 mg Multi-Ingred Cream/Lotion/Oil/Oint (Mineral Oil/Petrolatum,White 106 Gm Tube) 1 appl TOPICAL TID [facility]; Protocol Last Admin: 04/27/24 15:01 Dose: Not Given Multivitamins/Vitamin C (Multivitamin Tablet) 1 tab PO DAILY [facility] Last Admin: 04/27/24 09:38 Dose: 1 tab Nicotine Polacrilex (Nicotine Polacrilex 2 Mg Gum) 2 mg BUCCAL Q2H PRN PRN Reason: Nicotine Cravings Pt Own (Bengay (Ultrastreng)) 1 applic TOPICAL TID PRN PRN Reason: arthritis pain Last Admin: 04/24/24 18:35 Dose: 1 applic Paliperidone (Paliperidone Er 9 Mg Tab.Er.24) 9 mg PO DAILY [facility] Last Admin: 04/27/24 09:38 Dose: 9 mg Polyethylene Glycol (Polyethylene Glycol 3350 17 Gm Powd.Pack) 17 gm PO DAILY [facility] Last Admin: 04/27/24 09:36 Dose: 17 gm Senna (Sennosides 8.6 Mg Tablet) 17.2 mg PO BID [facility] Last Admin: 04/27/24 09:38 Dose: 17.2 mg Simethicone (Simethicone 80 Mg Tab.Chew) 80 mg PO QID [facility] Last Admin: 04/27/24 13:22 Dose: 80 mg Tramadol HCl (Tramadol Hcl 50 Mg Tablet) 25 mg PO Q6H PRN PRN Reason: Pain, Severe (Pain Scale 7-10) Trazodone HCl (Trazodone Hcl 25 Mg Halftab) 25 mg PO BEDTIME PRN PRN Reason: Insomnia Last Admin: 04/26/24 21:06 Dose: 25 mg Trolamine Salicylate (Trolamine Salicylate 10 % Cream 141 Gm Tube) 1 appl TOPICAL TID PRN PRN Reason: arthritis sx Last Admin: 04/27/24 12:37 Dose: 1 appl Allergies Allergies Allergy/AdvReac Type Severity Reaction Status Date / Time amoxicillin Allergy Unknown Verified 03/06/24 17:04 aripiprazole [From Abilify] Allergy Unknown Verified 03/06/24 17:20 Barbiturates Allergy Nausea and Verified 03/06/24 17:20 Vomiting ceftriaxone Allergy Unknown Verified 03/06/24 17:20 ciprofloxacin Allergy Unknown Verified 03/06/24 17:20 Latex, Natural Rubber Allergy Hives Verified 03/06/24 17:20 oxycodone Allergy Unknown Verified 03/06/24 17:20 Penicillins Allergy Unknown Verified 03/06/24 17:20 Sulfa (Sulfonamide Allergy Blister Verified 03/06/24 17:20 Antibiotics) venlafaxine [From Effexor] Allergy Unknown Verified 03/06/24 17:20 Venlafaxine Analogues Allergy Unknown Verified 03/06/24 17:20 Assessment & Plan Assessment & Plan (1) Schizoaffective disorder: Status: Acute Code(s): F25.9 - Schizoaffective disorder, unspecified Assessment and Plan: No convincing evidence of a seizure disorder or eye witness account. EEG ding snot show any seizure activity. Would not recommend starting any anti epileptic drugs. Plan 04/24: Continue tx. 04/25 continue current treatment plan 04/26 continue current treatment plan 04/27 continue current treatment plan Reason for continued inpatient stay Substantial Risk for: rapid decompensation Time Spent With Patient Time: Total time managing care of this patient today ____ minutes.
[2024-04-27] MEDS: traMADoL HCL 50 MG TABLET 25 MG PO ×2 (17:18→21:52)
[2024-04-27 20:00] VITALS: BP 138/62; PULSE 70; TEMP 36.8; O2SAT 96
[2024-04-27] MEDS: Mirtazapine 7.5 MG TABLET PO (21:41)
[2024-04-27] MEDS: bisacodyL 5 MG TABLET.DR 10 MG PO (21:42)
[2024-04-28] MEDS: Cyclobenzaprine HCl 10 MG TABLET PO ×2 (00:21→15:12)
[2024-04-28 08:48] LABS: MANUAL DIFF FLAG NO
[2024-04-28 08:53] LABS: Basophils Percent Auto 0.3 % (0-2); Eosinophils Percent Auto 0.2 % (0-4); Hematocrit 35.4 % (37.0-47.0); Hemoglobin 11.4 g/dl (12.0-16.0); Imm Gran Abs Auto 0.02 X10*3/uL (0.00-0.03); Imm Gran Pct Auto 0.3 % (0.0-0.4); Lymphocytes Absolute Auto 2.2 X10*3/uL (1.2-4.9); Lymphocytes Percent Auto 36.9 % (20-40); Mean Corpuscular HGB Conc 32.2 g/dl (31.0-35.0); Mean Corpuscular Hemoglobin 29.5 pg (27.0-33.0); Mean Corpuscular Volume 91.5 fL (80.0-98.0); Mean Platelet Volume 9.2 fL (9.4-12.3); Monocytes Absolute Auto 0.5 X10*3/uL (0.1-1.2); Monocytes Percent Auto 7.9 % (2-11); Neutrophils Absolute Auto 3.2 x10*3/uL (2.0-8.3); Neutrophils Percent Auto 54.4 % (45-73); Platelet Count 193 X10*3/uL (160-400); Red Blood Count 3.87 X10*6/uL (4.20-5.50); Red Cell Distribution Width 13.8 % (11.0-16.0); White Blood Count 5.9 X10*3/uL (4.8-10.8)
[2024-04-28 09:01] VITALS: BP 109/59; PULSE 74; RESP 20; TEMP 36.1; O2SAT 100
[2024-04-28 09:14] LABS: Alanine Aminotransferase 11 U/L (0-31); Alkaline Phosphatase 66 U/L (39-117); Anion Gap 12 (12-20); Aspartate Amino Transferase 14 U/L (5-31); Bilirubin Total 0.2 mg/dL (0.0-1.0); Blood Urea Nitrogen 18 mg/dL (9-16); Calcium 9.7 mg/dL (8.4-10.2); Carbon Dioxide 25 mmol/L (22-29); Chloride 104 mmol/L (96-108); Creatinine Clr Calc Pharmacy 73.4; Estimated Glomerular Filt Rate > 60; Glucose Random 109 mg/dL (60-115); Potassium 4.3 mmol/L (3.3-5.1); Sodium 137 mmol/L (135-145)
[2024-04-28] MEDS: Lidocaine 4 % Patch ADH..PATCH 1 PATCH TRANSDERMA (09:14)
[2024-04-28] MEDS: polyethylene glycoL 3350 17 GM POWD.PACK PO (09:14)
[2024-04-28] MEDS: Sennosides 8.6 MG TABLET 17.2 MG PO ×2 (09:14→21:24)
[2024-04-28] MEDS: Multivitamin TABLET 1 TAB PO (09:15)
[2024-04-28] MEDS: fluPHENAZine HCl 1 MG TABLET 4 MG PO ×2 (09:15→21:25)
[2024-04-28] MEDS: Docusate Sodium 100 MG CAPSULE PO (09:15)
[2024-04-28] MEDS: Gabapentin 300 MG CAPSULE PO ×3 (09:15→21:24)
[2024-04-28] MEDS: Paliperidone ER 9 MG TAB.ER.24 PO (09:15)
[2024-04-28] MEDS: Escitalopram Oxalate 5 MG TABLET PO (09:15)
[2024-04-28] MEDS: levETIRAcetam 1,000 MG TABLET 1000 MG PO ×2 (09:15→21:24)
[2024-04-28] MEDS: Losartan Potassium 50 MG TABLET PO (09:15)
[2024-04-28] MEDS: Benztropine Mesylate 0.5 MG TABLET PO ×2 (09:15→21:24)
[2024-04-28] MEDS: Simethicone 80 MG TAB.CHEW PO ×3 (09:16→21:23)
[2024-04-28] MEDS: lamoTRIgine 25 MG TABLET PO ×2 (09:16→21:23)
[2024-04-28] MEDS: Metoprolol Succinate ER 50 MG TAB.ER.24H PO (09:16)
[2024-04-28] MEDS: Famotidine 20 MG TABLET 40 MG PO (09:16)
[2024-04-28] MEDS: Apixaban 2.5 MG TABLET PO ×2 (09:16→21:25)
[2024-04-28 14:00] VITALS: BP 109/59; PULSE 74; O2SAT 100
--- NOTE | 2024-04-28 14:46 | P.PNPSI_ITS ---
Subjective Subjective Date of Service: 04/28/24 Reason For Visit: Schizoaffective Disorder Bipolar Type Subjective Notes: Conditional Voluntary Healthcare Proxy: Yes Guardianship: No Medical Problems Affecting Mental Status: No Interim History: Team report pt was verbally abusive with new room-mate last night, needing to sleep in the group room due to conflict. Today, pt visable in milieu. Team calling [facility] team about discharge. They have no placement as yet, they hope for 05/04 to have a residential placement for pt in her area. Pt ready for discharge, some behavioral sx noted as above which team is managing and can be managed in residential care setting. Medication Compliance: Yes Side effects from medications: No Attending Groups: Intermittent Review of Systems Acute medical concerns: No Medical Review of Systems: unchanged Review of Systems Review of Systems back pain Mental Status Exam Mental Status Exam Patient Appearance: Appropriate Patient Orientation: Person, Place, Time and Situation Level of Consciousness: Alert Patient Behavior: Talkative, Cooperative and Good Eye Contact Mood Description: Appropriate Affect Description: Appropriate Patient Cognition Impaired: No Ability to Follow Directions: Good Speech Pattern: Spontaneous Speech Memory Description: Intact Hallucinations: None Delusions: Not Present Thought Process: Intact Thought Content: positive for Intact and positive for Circumstantial Depressive Symptoms: Increased Anxiety (worry about where she will go upon discharge) Judgement: Good Diagnostics Vital Signs (24Hr): Vital Signs - 24 hr 04/27/24 20:00 04/28/24 09:01 04/28/24 14:00 Temperature 98.2 F 97 F Pulse Rate 70 74 74 Respiratory Rate 20 Blood Pressure 138/62 109/59 L 109/59 L Pulse Oximetry 96 100 100 Oxygen Delivery Method Room Air Room Air BMI result Body Mass Index 25.7 Labs 04/28/24 08:36 04/28/24 08:36 Labs: Laboratory Results - last 48 hr 04/28/24 08:36 WBC 5.9 RBC 3.87 L Hgb 11.4 L Hct 35.4 L MCV 91.5 MCH 29.5 MCHC 32.2 RDW 13.8 Plt Count 193 MPV 9.2 L Immature Gran % (Auto) 0.3 Neut % (Auto) 54.4 Lymph % (Auto) 36.9 [place] % (Auto) 7.9 Eos % (Auto) 0.2 Baso % (Auto) 0.3 Lymph # (Auto) 2.2 [place] # (Auto) 0.5 Eos # (Auto) 0.0 Baso # (Auto) 0.0 Abs Immat Gran (auto) 0.02 Absolute Neuts (auto) 3.2 Absolute Nucleated RBC 0.000 Nucleated RBC % (auto) 0.0 Sodium 137 Potassium 4.3 Chloride 104 Carbon Dioxide 25 Anion Gap 12 BUN 18 H Creatinine 0.80 Estim Creat Clear Calc 73.4 Estimated GFR > 60 Random Glucose 109 Calcium 9.7 D Total Bilirubin 0.2 AST 14 ALT 11 Alkaline Phosphatase 66 Total Protein 7.0 Albumin 4.0 Imaging Radiology Impressions: ITS Impressions Lumbar Spine X-Ray 04/08/24 11:07 IMPRESSION: 1. There is moderate degenerative disease at L2-L3 and L3-L4, and marked degenerative disc disease is seen at L5-S1. 2. There is multi-level lumbar spondylosis and endplate arthropathy. Medications Medications Current Medications Acetaminophen (Acetaminophen 325 Mg Tablet) 650 mg PO Q6H PRN PRN Reason: Headache/Pain Mild Scale (1-3) Last Admin: 04/26/24 09:18 Dose: 650 mg Al Hydroxide/Mg Hydroxide (Magnesium Hydrox/Alum Hydrox 30 Ml Oral.Susp) 30 ml PO Q6H PRN PRN Reason: Heartburn/Nausea Apixaban (Apixaban 2.5 Mg Tablet) 2.5 mg PO BID [facility] Last Admin: 04/28/24 09:16 Dose: 2.5 mg Benztropine Mesylate (Benztropine Mesylate 0.5 Mg Tablet) 0.5 mg PO BID [facility] Last Admin: 04/28/24 09:15 Dose: 0.5 mg Bisacodyl (Bisacodyl 5 Mg Tablet.Dr) 10 mg PO BEDTIME [facility] Last Admin: 04/27/24 21:42 Dose: 10 mg Cyclobenzaprine HCl (Cyclobenzaprine Hcl 10 Mg Tablet) 10 mg PO TID PRN PRN Reason: muscle spasms Last Admin: 04/28/24 00:21 Dose: 10 mg Docusate Sodium (Docusate Sodium 100 Mg Capsule) 100 mg PO DAILY [facility] Last Admin: 04/28/24 09:15 Dose: 100 mg Escitalopram Oxalate (Escitalopram Oxalate 5 Mg Tablet) 5 mg PO DAILY [facility] Last Admin: 04/28/24 09:15 Dose: 5 mg Famotidine (Famotidine 20 Mg Tablet) 40 mg PO DAILY [facility] Last Admin: 04/28/24 09:16 Dose: 40 mg Fluphenazine HCl (Fluphenazine Hcl 1 Mg Tablet) 4 mg PO BID [facility] Last Admin: 04/28/24 09:15 Dose: 4 mg Gabapentin (Gabapentin 300 Mg Capsule) 300 mg PO TID [facility] Last Admin: 04/28/24 09:15 Dose: 300 mg Ibuprofen (Ibuprofen 400 Mg Tablet) 400 mg PO Q4H PRN PRN Reason: arthritis Last Admin: 04/27/24 13:21 Dose: 400 mg Lamotrigine (Lamotrigine 25 Mg Tablet) 25 mg PO BID [facility] Last Admin: 04/28/24 09:16 Dose: 25 mg Levetiracetam (Levetiracetam 1,000 Mg Tablet) 1,000 mg PO BID [facility] Last Admin: 04/28/24 09:15 Dose: 1,000 mg Lidocaine (Lidocaine 4 % Patch Adh..Patch) 1 patch TRANSDERMA DAILY [facility] Last Admin: 04/28/24 09:14 Dose: 1 patch Losartan Potassium (Losartan Potassium 50 Mg Tablet) 50 mg PO DAILY [facility]; Protocol Last Admin: 04/28/24 09:15 Dose: 50 mg Magnesium Hydroxide (Milk Of Magnesia 30 Ml Oral.Susp) 30 ml PO DAILY PRN PRN Reason: Constipation Last Admin: 04/22/24 20:36 Dose: 30 ml Metoprolol Succinate (Metoprolol Succinate Er 50 Mg Tab.Er.24h) 50 mg PO DAILY [facility]; Protocol Last Admin: 04/28/24 09:16 Dose: 50 mg Mirtazapine (Mirtazapine 7.5 Mg Tablet) 7.5 mg PO BEDTIME [facility] Last Admin: 04/27/24 21:41 Dose: 7.5 mg Multi-Ingred Cream/Lotion/Oil/Oint (Mineral Oil/Petrolatum,White 106 Gm Tube) 1 appl TOPICAL TID [facility]; Protocol Last Admin: 04/28/24 09:16 Dose: Not Given Multivitamins/Vitamin C (Multivitamin Tablet) 1 tab PO DAILY [facility] Last Admin: 04/28/24 09:15 Dose: 1 tab Nicotine Polacrilex (Nicotine Polacrilex 2 Mg Gum) 2 mg BUCCAL Q2H PRN PRN Reason: Nicotine Cravings Pt Own (Bengay (Ultrastrength)) 1 applic TOPICAL TID PRN PRN Reason: arthritis pain Last Admin: 04/24/24 18:35 Dose: 1 applic Paliperidone (Paliperidone Er 9 Mg Tab.Er.24) 9 mg PO DAILY [facility] Last Admin: 04/28/24 09:15 Dose: 9 mg Polyethylene Glycol (Polyethylene Glycol 3350 17 Gm Powd.Pack) 17 gm PO DAILY [facility] Last Admin: 04/28/24 09:14 Dose: 17 gm Senna (Sennosides 8.6 Mg Tablet) 17.2 mg PO BID [facility] Last Admin: 04/28/24 09:14 Dose: 17.2 mg Simethicone (Simethicone 80 Mg Tab.Chew) 80 mg PO QID [facility] Last Admin: 04/28/24 09:16 Dose: 80 mg Tramadol HCl (Tramadol Hcl 50 Mg Tablet) 25 mg PO Q6H PRN PRN Reason: Pain, Severe (Pain Scale 7-10) Last Admin: 04/27/24 21:52 Dose: 25 mg Trazodone HCl (Trazodone Hcl 25 Mg Halftab) 25 mg PO BEDTIME PRN PRN Reason: Insomnia Last Admin: 04/26/24 21:06 Dose: 25 mg Trolamine Salicylate (Trolamine Salicylate 10 % Cream 141 Gm Tube) 1 appl TOPICAL TID PRN PRN Reason: arthritis sx Last Admin: 04/27/24 12:37 Dose: 1 appl Allergies Allergies Allergy/AdvReac Type Severity Reaction Status Date / Time amoxicillin Allergy Unknown Verified 03/06/24 17:04 aripiprazole [From Abilify] Allergy Unknown Verified 03/06/24 17:20 Barbiturates Allergy Nausea and Verified 03/06/24 17:20 Vomiting ceftriaxone Allergy Unknown Verified 03/06/24 17:20 ciprofloxacin Allergy Unknown Verified 03/06/24 17:20 Latex, Natural Rubber Allergy Hives Verified 03/06/24 17:20 oxycodone Allergy Unknown Verified 03/06/24 17:20 Penicillins Allergy Unknown Verified 03/06/24 17:20 Sulfa (Sulfonamide Allergy Blister Verified 03/06/24 17:20 Antibiotics) venlafaxine [From Effexor] Allergy Unknown Verified 03/06/24 17:20 Venlafaxine Analogues Allergy Unknown Verified 03/06/24 17:20 Assessment & Plan Assessment & Plan (1) Schizoaffective disorder: Status: Acute Code(s): F25.9 - Schizoaffective disorder, unspecified Assessment and Plan: No convincing evidence of a seizure disorder or eye witness account. EEG ding snot show any seizure activity. Would not recommend starting any anti epileptic drugs. Plan 04/24: Continue tx. 04/25 continue current treatment plan 04/26 continue current treatment plan 04/27 continue current treatment plan 04/28 discharge planning. No med changes today. Reason for continued inpatient stay Substantial Risk for: rapid decompensation Time Spent With Patient Time: Total time managing care of this patient today ____ minutes.
[2024-04-28] MEDS: Trolamine Salicylate 10 % Cream 141 gm Tube 1 APPL TOPICAL (15:11)
[2024-04-28] MEDS: Ibuprofen 400 MG TABLET PO (15:12)
[2024-04-28] MEDS: traMADoL HCL 50 MG TABLET 25 MG PO (19:22)
[2024-04-28] MEDS: Acetaminophen 325 MG TABLET 650 MG PO (19:23)
[2024-04-28 20:00] VITALS: RESP 16
[2024-04-28] MEDS: bisacodyL 5 MG TABLET.DR 10 MG PO (21:23)
[2024-04-28] MEDS: Mirtazapine 7.5 MG TABLET PO (21:23)
[2024-04-29 08:56] VITALS: BP 112/66; PULSE 76; RESP 16; TEMP 36.7; O2SAT 100
[2024-04-29] MEDS: Apixaban 2.5 MG TABLET PO ×2 (08:59→21:39)
[2024-04-29] MEDS: Gabapentin 300 MG CAPSULE PO ×3 (08:59→21:38)
[2024-04-29] MEDS: Benztropine Mesylate 0.5 MG TABLET PO ×2 (08:59→21:39)
[2024-04-29] MEDS: fluPHENAZine HCl 1 MG TABLET 4 MG PO ×2 (09:00→21:38)
[2024-04-29] MEDS: Escitalopram Oxalate 5 MG TABLET PO (09:00)
[2024-04-29] MEDS: Simethicone 80 MG TAB.CHEW PO ×3 (09:00→21:38)
[2024-04-29] MEDS: Docusate Sodium 100 MG CAPSULE PO (09:00)
[2024-04-29] MEDS: Losartan Potassium 50 MG TABLET PO (09:00)
[2024-04-29] MEDS: Paliperidone ER 9 MG TAB.ER.24 PO (09:00)
[2024-04-29] MEDS: Metoprolol Succinate ER 50 MG TAB.ER.24H PO (09:00)
[2024-04-29] MEDS: Sennosides 8.6 MG TABLET 17.2 MG PO ×2 (09:00→21:39)
[2024-04-29] MEDS: lamoTRIgine 25 MG TABLET PO ×2 (09:00→21:39)
[2024-04-29] MEDS: Famotidine 20 MG TABLET 40 MG PO (09:00)
[2024-04-29] MEDS: levETIRAcetam 1,000 MG TABLET 1000 MG PO ×2 (09:00→21:39)
[2024-04-29] MEDS: polyethylene glycoL 3350 17 GM POWD.PACK PO (09:01)
[2024-04-29] MEDS: Lidocaine 4 % Patch ADH..PATCH 1 PATCH TRANSDERMA (09:01)
[2024-04-29] MEDS: Multivitamin TABLET 1 TAB PO (11:16)
[2024-04-29] MEDS: Mineral Oil/Petrolatum,White 106 GM Tube 1 APPL TOPICAL (11:17)
[2024-04-29] MEDS: Ibuprofen 400 MG TABLET PO (11:23)
[2024-04-29] MEDS: traMADoL HCL 50 MG TABLET 25 MG PO (11:24)
--- NOTE | 2024-04-29 12:33 | P.PNPSI_ITS ---
Subjective Subjective Date of Service: 04/29/24 Reason For Visit: Schizoaffective Disorder Bipolar Type Subjective Notes: Conditional Voluntary Healthcare Proxy: Yes Guardianship: No Medical Problems Affecting Mental Status: No Interim History: Esther is out of bed, in the milieu. Discussed conflict with room-mate. I would like a room-mate who is an adult like me. Discussed vertigo sx, review of neuro eval, EEG results. All diagnostics negative at this time. Discussed sx being possibly those of anxiety. I feel nervous , maybe anxious . Self conscious about gutteral sounds she makes when in tense situations and discussed these in terms of self-soothing, mgt techniques for her sx. Wanting to make friends and have increased engagement which we are currently seeing in her attempts to connect with some peers Medication Compliance: Yes Side effects from medications: No Attending Groups: Intermittent Review of Systems Acute medical concerns: No Medical Review of Systems: unchanged Review of Systems Review of Systems back pain Mental Status Exam Mental Status Exam Patient Appearance: Appropriate Patient Orientation: Person, Place, Time and Situation Level of Consciousness: Alert Patient Behavior: Talkative, Cooperative and Good Eye Contact Mood Description: Appropriate Affect Description: Appropriate Patient Cognition Impaired: No Ability to Follow Directions: Good Speech Pattern: Spontaneous Speech Memory Description: Intact Hallucinations: None Delusions: Not Present Thought Process: Intact Thought Content: positive for Intact and positive for Circumstantial Depressive Symptoms: Increased Anxiety (worry about where she will go upon discharge) Judgement: Good Diagnostics Vital Signs (24Hr): Vital Signs - 24 hr 04/28/24 14:00 04/28/24 20:00 Pulse Rate 74 Respiratory Rate 16 Blood Pressure 109/59 L Pulse Oximetry 100 BMI result Body Mass Index 25.7 Labs 04/28/24 08:36 04/28/24 08:36 Labs: Laboratory Results - last 48 hr 04/28/24 08:36 WBC 5.9 RBC 3.87 L Hgb 11.4 L Hct 35.4 L MCV 91.5 MCH 29.5 MCHC 32.2 RDW 13.8 Plt Count 193 MPV 9.2 L Immature Gran % (Auto) 0.3 Neut % (Auto) 54.4 Lymph % (Auto) 36.9 Winston % (Auto) 7.9 Eos % (Auto) 0.2 Baso % (Auto) 0.3 Lymph # (Auto) 2.2 Winston # (Auto) 0.5 Eos # (Auto) 0.0 Baso # (Auto) 0.0 Abs Immat Gran (auto) 0.02 Absolute Neuts (auto) 3.2 Absolute Nucleated RBC 0.000 Nucleated RBC % (auto) 0.0 Sodium 137 Potassium 4.3 Chloride 104 Carbon Dioxide 25 Anion Gap 12 BUN 18 H Creatinine 0.80 Estim Creat Clear Calc 73.4 Estimated GFR > 60 Random Glucose 109 Calcium 9.7 D Total Bilirubin 0.2 AST 14 ALT 11 Alkaline Phosphatase 66 Total Protein 7.0 Albumin 4.0 Imaging Radiology Impressions: ITS Impressions Lumbar Spine X-Ray 04/08/24 11:07 IMPRESSION: 1. There is moderate degenerative disease at L2-L3 and L3-L4, and marked degenerative disc disease is seen at L5-S1. 2. There is multi-level lumbar spondylosis and endplate arthropathy. Medications Medications Current Medications Acetaminophen (Acetaminophen 325 Mg Tablet) 650 mg PO Q6H PRN PRN Reason: Headache/Pain Mild Scale (1-3) Last Admin: 04/28/24 19:23 Dose: 650 mg Al Hydroxide/Mg Hydroxide (Magnesium Hydrox/Alum Hydrox 30 Ml Oral.Susp) 30 ml PO Q6H PRN PRN Reason: Heartburn/Nausea Apixaban (Apixaban 2.5 Mg Tablet) 2.5 mg PO BID [facility] Last Admin: 04/29/24 08:59 Dose: 2.5 mg Benztropine Mesylate (Benztropine Mesylate 0.5 Mg Tablet) 0.5 mg PO BID [facility] Last Admin: 04/29/24 08:59 Dose: 0.5 mg Bisacodyl (Bisacodyl 5 Mg Tablet.Dr) 10 mg PO BEDTIME [facility] Last Admin: 04/28/24 21:23 Dose: 10 mg Cyclobenzaprine HCl (Cyclobenzaprine Hcl 10 Mg Tablet) 10 mg PO TID PRN PRN Reason: muscle spasms Last Admin: 04/28/24 15:12 Dose: 10 mg Docusate Sodium (Docusate Sodium 100 Mg Capsule) 100 mg PO DAILY [facility] Last Admin: 04/29/24 09:00 Dose: 100 mg Escitalopram Oxalate (Escitalopram Oxalate 5 Mg Tablet) 5 mg PO DAILY [facility] Last Admin: 04/29/24 09:00 Dose: 5 mg Famotidine (Famotidine 20 Mg Tablet) 40 mg PO DAILY [facility] Last Admin: 04/29/24 09:00 Dose: 40 mg Fluphenazine HCl (Fluphenazine Hcl 1 Mg Tablet) 4 mg PO BID [facility] Last Admin: 04/29/24 09:00 Dose: 4 mg Gabapentin (Gabapentin 300 Mg Capsule) 300 mg PO TID [facility] Last Admin: 04/29/24 08:59 Dose: 300 mg Ibuprofen (Ibuprofen 400 Mg Tablet) 400 mg PO Q4H PRN PRN Reason: arthritis Last Admin: 04/29/24 11:23 Dose: 400 mg Lamotrigine (Lamotrigine 25 Mg Tablet) 25 mg PO BID [facility] Last Admin: 04/29/24 09:00 Dose: 25 mg Levetiracetam (Levetiracetam 1,000 Mg Tablet) 1,000 mg PO BID [facility] Last Admin: 04/29/24 09:00 Dose: 1,000 mg Lidocaine (Lidocaine 4 % Patch Adh..Patch) 1 patch TRANSDERMA DAILY [facility] Last Admin: 04/29/24 09:01 Dose: 1 patch Losartan Potassium (Losartan Potassium 50 Mg Tablet) 50 mg PO DAILY [facility]; Protocol Last Admin: 04/29/24 09:00 Dose: 50 mg Magnesium Hydroxide (Milk Of Magnesia 30 Ml Oral.Susp) 30 ml PO DAILY PRN PRN Reason: Constipation Last Admin: 04/22/24 20:36 Dose: 30 ml Metoprolol Succinate (Metoprolol Succinate Er 50 Mg Tab.Er.24h) 50 mg PO DAILY [facility]; Protocol Last Admin: 04/29/24 09:00 Dose: 50 mg Mirtazapine (Mirtazapine 7.5 Mg Tablet) 7.5 mg PO BEDTIME [facility] Last Admin: 04/28/24 21:23 Dose: 7.5 mg Multi-Ingred Cream/Lotion/Oil/Oint (Mineral Oil/Petrolatum,White 106 Gm Tube) 1 appl TOPICAL TID [facility]; Protocol Last Admin: 04/29/24 11:17 Dose: 1 appl Multivitamins/Vitamin C (Multivitamin Tablet) 1 tab PO DAILY [facility] Last Admin: 04/29/24 11:16 Dose: 1 tab Nicotine Polacrilex (Nicotine Polacrilex 2 Mg Gum) 2 mg BUCCAL Q2H PRN PRN Reason: Nicotine Cravings Pt Own (Bengay (Ultrastrength)) 1 applic TOPICAL TID PRN PRN Reason: arthritis pain Last Admin: 04/24/24 18:35 Dose: 1 applic Pt Own (Voltaren Gel (1 Applic)) 1 applic TOPICAL QID PRN PRN Reason: pain Paliperidone (Paliperidone Er 9 Mg Tab.Er.24) 9 mg PO DAILY [facility] Last Admin: 04/29/24 09:00 Dose: 9 mg Polyethylene Glycol (Polyethylene Glycol 3350 17 Gm Powd.Pack) 17 gm PO DAILY [facility] Last Admin: 04/29/24 09:01 Dose: 17 gm Senna (Sennosides 8.6 Mg Tablet) 17.2 mg PO BID [facility] Last Admin: 04/29/24 09:00 Dose: 17.2 mg Simethicone (Simethicone 80 Mg Tab.Chew) 80 mg PO QID [facility] Last Admin: 04/29/24 09:00 Dose: 80 mg Tramadol HCl (Tramadol Hcl 50 Mg Tablet) 25 mg PO Q6H PRN PRN Reason: Pain, Severe (Pain Scale 7-10) Last Admin: 04/29/24 11:24 Dose: 25 mg Trazodone HCl (Trazodone Hcl 25 Mg Halftab) 25 mg PO BEDTIME PRN PRN Reason: Insomnia Last Admin: 04/26/24 21:06 Dose: 25 mg Trolamine Salicylate (Trolamine Salicylate 10 % Cream 141 Gm Tube) 1 appl TOPICAL TID PRN PRN Reason: arthritis sx Last Admin: 04/28/24 15:11 Dose: 1 appl Allergies Allergies Allergy/AdvReac Type Severity Reaction Status Date / Time amoxicillin Allergy Unknown Verified 03/06/24 17:04 aripiprazole [From Abilify] Allergy Unknown Verified 03/06/24 17:20 Barbiturates Allergy Nausea and Verified 03/06/24 17:20 Vomiting ceftriaxone Allergy Unknown Verified 03/06/24 17:20 ciprofloxacin Allergy Unknown Verified 03/06/24 17:20 Latex, Natural Rubber Allergy Hives Verified 03/06/24 17:20 oxycodone Allergy Unknown Verified 03/06/24 17:20 Penicillins Allergy Unknown Verified 03/06/24 17:20 Sulfa (Sulfonamide Allergy Blister Verified 03/06/24 17:20 Antibiotics) venlafaxine [From Effexor] Allergy Unknown Verified 03/06/24 17:20 Venlafaxine Analogues Allergy Unknown Verified 03/06/24 17:20 Assessment & Plan Assessment & Plan (1) Schizoaffective disorder: Status: Acute Code(s): F25.9 - Schizoaffective disorder, unspecified Assessment and Plan: No convincing evidence of a seizure disorder or eye witness account. EEG ding snot show any seizure activity. Would not recommend starting any anti epileptic drugs. Plan 04/24: Continue tx. 04/25 continue current treatment plan 04/26 continue current treatment plan 04/27 continue current treatment plan 04/28 discharge planning. No med changes today. 04/29 no medication changes today encourage milieu encouraged peer interaction Discharge planning-pt could benefit from a setting where she has the opportunity to engage in communication in multiple forms, continue to strengthen and develop coping skills and regulate emotions to assist her in increased stability and success living well in her community. Reason for continued inpatient stay Substantial Risk for: stable for discharge Time Spent With Patient Time: Total time managing care of this patient today ____ minutes.
[2024-04-29] MEDS: Acetaminophen 325 MG TABLET 650 MG PO (13:56)
--- NOTE | 2024-04-29 14:10 | PC.NURSE ---
diclofenac ordered from Provider CAW for back pain although packaging states not for use on back, hips, or shoulder. Spoke to pharmacy who states it is not contraindicated but may have less efficacy. Pt education provided.
--- NOTE | 2024-04-29 17:38 | PC.NURSE ---
pt was sleeping during 3pm med pass. Pt woken at 17:25 in anticipation for dinner and to administer missed medications.
[2024-04-29] MEDS: Milk of Magnesia 30 ML ORAL.SUSP PO (19:48)
[2024-04-29 20:00] VITALS: BP 100/58; PULSE 72; RESP 16; TEMP 36.2; O2SAT 96
[2024-04-29] MEDS: bisacodyL 5 MG TABLET.DR 10 MG PO (21:39)
[2024-04-29] MEDS: Mirtazapine 7.5 MG TABLET PO (21:39)
[2024-04-30 07:00] VITALS: BMI 27.5
[2024-04-30 08:00] VITALS: RESP 18
[2024-04-30] MEDS: Simethicone 80 MG TAB.CHEW PO ×2 (09:07→13:21)
[2024-04-30] MEDS: fluPHENAZine HCl 1 MG TABLET 4 MG PO (09:07)
[2024-04-30] MEDS: levETIRAcetam 1,000 MG TABLET 1000 MG PO (09:07)
[2024-04-30] MEDS: Multivitamin TABLET 1 TAB PO (09:08)
[2024-04-30] MEDS: Famotidine 20 MG TABLET 40 MG PO (09:08)
[2024-04-30] MEDS: Paliperidone ER 9 MG TAB.ER.24 PO (09:08)
[2024-04-30] MEDS: Benztropine Mesylate 0.5 MG TABLET PO (09:08)
[2024-04-30] MEDS: Apixaban 2.5 MG TABLET PO (09:08)
[2024-04-30] MEDS: Gabapentin 300 MG CAPSULE PO ×2 (09:08→13:22)
[2024-04-30] MEDS: Escitalopram Oxalate 5 MG TABLET PO (09:08)
[2024-04-30] MEDS: Sennosides 8.6 MG TABLET 17.2 MG PO (09:08)
[2024-04-30] MEDS: Docusate Sodium 100 MG CAPSULE PO (09:08)
[2024-04-30] MEDS: lamoTRIgine 25 MG TABLET PO (09:08)
[2024-04-30] MEDS: Cyclobenzaprine HCl 10 MG TABLET PO (09:18)
[2024-04-30] MEDS: Ibuprofen 400 MG TABLET PO (09:18)
[2024-04-30 09:19] VITALS: BP 132/60; PULSE 71
[2024-04-30] MEDS: Metoprolol Succinate ER 50 MG TAB.ER.24H PO (09:19)
[2024-04-30] MEDS: Losartan Potassium 50 MG TABLET PO (09:19)
[2024-04-30] MEDS: Trolamine Salicylate 10 % Cream 141 gm Tube 1 APPL TOPICAL (09:20)
[2024-04-30 11:20] VITALS: BP 132/60; PULSE 71
[2024-04-30] MEDS: traMADoL HCL 50 MG TABLET 25 MG PO (11:23)
--- NOTE | 2024-04-30 11:38 | HO.PSYCHPN ---
Subjective Subjective Reason For Visit: Schizoaffective Disorder Bipolar Type Diagnostics Vital Signs (24Hr): Vital Signs - 24 hr 04/29/24 20:00 04/30/24 08:00 04/30/24 09:19 Temperature 97.2 F Pulse Rate 72 Respiratory Rate 16 18 Blood Pressure 100/58 L 132/60 Pulse Oximetry 96 Oxygen Delivery Method Room Air Room Air 04/30/24 09:19 04/30/24 11:20 Temperature Pulse Rate 71 71 Respiratory Rate Blood Pressure 132/60 132/60 Pulse Oximetry Oxygen Delivery Method BMI result Body Mass Index 27.5 Labs 04/28/24 08:36 04/28/24 08:36 Imaging Radiology Impressions: ITS Impressions Lumbar Spine X-Ray 04/08/24 11:07 IMPRESSION: 1. There is moderate degenerative disease at L2-L3 and L3-L4, and marked degenerative disc disease is seen at L5-S1. 2. There is multi-level lumbar spondylosis and endplate arthropathy. Medications Medications Current Medications Acetaminophen (Acetaminophen 325 Mg Tablet) 650 mg PO Q6H PRN PRN Reason: Headache/Pain Mild Scale (1-3) Last Admin: 04/29/24 13:56 Dose: 650 mg Al Hydroxide/Mg Hydroxide (Magnesium Hydrox/Alum Hydrox 30 Ml Oral.Susp) 30 ml PO Q6H PRN PRN Reason: Heartburn/Nausea Apixaban (Apixaban 2.5 Mg Tablet) 2.5 mg PO BID [facility] Last Admin: 04/30/24 09:08 Dose: 2.5 mg Benztropine Mesylate (Benztropine Mesylate 0.5 Mg Tablet) 0.5 mg PO BID [facility] Last Admin: 04/30/24 09:08 Dose: 0.5 mg Bisacodyl (Bisacodyl 5 Mg Tablet.Dr) 10 mg PO BEDTIME [facility] Last Admin: 04/29/24 21:39 Dose: 10 mg Cyclobenzaprine HCl (Cyclobenzaprine Hcl 10 Mg Tablet) 10 mg PO TID PRN PRN Reason: muscle spasms Last Admin: 04/30/24 09:18 Dose: 10 mg Docusate Sodium (Docusate Sodium 100 Mg Capsule) 100 mg PO DAILY [facility] Last Admin: 04/30/24 09:08 Dose: 100 mg Escitalopram Oxalate (Escitalopram Oxalate 5 Mg Tablet) 5 mg PO DAILY [facility] Last Admin: 04/30/24 09:08 Dose: 5 mg Famotidine (Famotidine 20 Mg Tablet) 40 mg PO DAILY [facility] Last Admin: 04/30/24 09:08 Dose: 40 mg Fluphenazine HCl (Fluphenazine Hcl 1 Mg Tablet) 4 mg PO BID [facility] Last Admin: 04/30/24 09:07 Dose: 4 mg Gabapentin (Gabapentin 300 Mg Capsule) 300 mg PO TID [facility] Last Admin: 04/30/24 09:08 Dose: 300 mg Ibuprofen (Ibuprofen 400 Mg Tablet) 400 mg PO Q4H PRN PRN Reason: arthritis Last Admin: 04/30/24 09:18 Dose: 400 mg Lamotrigine (Lamotrigine 25 Mg Tablet) 25 mg PO BID [facility] Last Admin: 04/30/24 09:08 Dose: 25 mg Levetiracetam (Levetiracetam 1,000 Mg Tablet) 1,000 mg PO BID [facility] Last Admin: 04/30/24 09:07 Dose: 1,000 mg Lidocaine (Lidocaine 4 % Patch Adh..Patch) 1 patch TRANSDERMA DAILY [facility] Last Admin: 04/30/24 10:40 Dose: Not Given Losartan Potassium (Losartan Potassium 50 Mg Tablet) 50 mg PO DAILY [facility]; Protocol Last Admin: 04/30/24 09:19 Dose: 50 mg Magnesium Hydroxide (Milk Of Magnesia 30 Ml Oral.Susp) 30 ml PO DAILY PRN PRN Reason: Constipation Last Admin: 04/29/24 19:48 Dose: 30 ml Metoprolol Succinate (Metoprolol Succinate Er 50 Mg Tab.Er.24h) 50 mg PO DAILY [facility]; Protocol Last Admin: 04/30/24 09:19 Dose: 50 mg Mirtazapine (Mirtazapine 7.5 Mg Tablet) 7.5 mg PO BEDTIME [facility] Last Admin: 04/29/24 21:39 Dose: 7.5 mg Multi-Ingred Cream/Lotion/Oil/Oint (Mineral Oil/Petrolatum,White 106 Gm Tube) 1 appl TOPICAL TID [facility]; Protocol Last Admin: 04/30/24 10:12 Dose: Not Given Multivitamins/Vitamin C (Multivitamin Tablet) 1 tab PO DAILY [facility] Last Admin: 04/30/24 09:08 Dose: 1 tab Nicotine Polacrilex (Nicotine Polacrilex 2 Mg Gum) 2 mg BUCCAL Q2H PRN PRN Reason: Nicotine Cravings Pt Own (Bengay (Ultrastrength)) 1 applic TOPICAL TID PRN PRN Reason: arthritis pain Last Admin: 04/24/24 18:35 Dose: 1 applic Pt Own (Voltaren Gel (1 Applic)) 1 applic TOPICAL QID PRN PRN Reason: pain Paliperidone (Paliperidone Er 9 Mg Tab.Er.24) 9 mg PO DAILY [facility] Last Admin: 04/30/24 09:08 Dose: 9 mg Polyethylene Glycol (Polyethylene Glycol 3350 17 Gm Powd.Pack) 17 gm PO DAILY [facility] Last Admin: 04/30/24 10:40 Dose: Not Given Senna (Sennosides 8.6 Mg Tablet) 17.2 mg PO BID [facility] Last Admin: 04/30/24 09:08 Dose: 17.2 mg Simethicone (Simethicone 80 Mg Tab.Chew) 80 mg PO QID [facility] Last Admin: 04/30/24 09:07 Dose: 80 mg Tramadol HCl (Tramadol Hcl 50 Mg Tablet) 25 mg PO Q6H PRN PRN Reason: Pain, Severe (Pain Scale 7-10) Last Admin: 04/30/24 11:23 Dose: 25 mg Trazodone HCl (Trazodone Hcl 25 Mg Halftab) 25 mg PO BEDTIME PRN PRN Reason: Insomnia Last Admin: 04/26/24 21:06 Dose: 25 mg Trolamine Salicylate (Trolamine Salicylate 10 % Cream 141 Gm Tube) 1 appl TOPICAL TID PRN PRN Reason: arthritis sx Last Admin: 04/30/24 09:20 Dose: 1 appl Allergies Allergies Allergy/AdvReac Type Severity Reaction Status Date / Time amoxicillin Allergy Unknown Verified 03/06/24 17:04 aripiprazole [From Abilify] Allergy Unknown Verified 03/06/24 17:20 Barbiturates Allergy Nausea and Verified 03/06/24 17:20 Vomiting ceftriaxone Allergy Unknown Verified 03/06/24 17:20 ciprofloxacin Allergy Unknown Verified 03/06/24 17:20 Latex, Natural Rubber Allergy Hives Verified 03/06/24 17:20 oxycodone Allergy Unknown Verified 03/06/24 17:20 Penicillins Allergy Unknown Verified 03/06/24 17:20 Sulfa (Sulfonamide Allergy Blister Verified 03/06/24 17:20 Antibiotics) venlafaxine [From Effexor] Allergy Unknown Verified 03/06/24 17:20 Venlafaxine Analogues Allergy Unknown Verified 03/06/24 17:20 Assessment & Plan Assessment & Plan (1) Schizoaffective disorder: Status: Acute Code(s): F25.9 - Schizoaffective disorder, unspecified Assessment and Plan: No convincing evidence of a seizure disorder or eye witness account. EEG ding snot show any seizure activity. Would not recommend starting any anti epileptic drugs. Plan 04/24: Continue tx. 04/25 continue current treatment plan 04/26 continue current treatment plan 04/27 continue current treatment plan 04/28 discharge planning. No med changes today. 04/29 no medication changes today encourage milieu encouraged peer interaction Discharge planning-pt could benefit from a setting where she has the opportunity to engage in communication in multiple forms, continue to strengthen and develop coping skills and regulate emotions to assist her in increased stability and success living well in her community. Time Spent With Patient Time: Total time managing care of this patient today ____ minutes.
[2024-04-30] MEDS: Acetaminophen 325 MG TABLET 650 MG PO (13:21)
[2024-04-30] MEDS: Lidocaine 4 % Patch ADH..PATCH 1 PATCH TRANSDERMA (13:22)
--- NOTE | 2024-04-30 17:50 | P.DS_ITS ---
DS: Providers Provider Date of Service: 04/30/24 Date of admission: 03/06/24 15:41 Date of discharge: 04/30/24 Primary care physician: Unknown Physician Admitting clinician: Erin Johnson Attending physician on admission: Sheng Prado Consults: 03/06/24 17:45 Consult to Hospitalist Routine Comment: Consulting Provider: Hospitalist Reason For Exam: OSH admission 04/20/24 16:42 Consult to Neurology Routine Consulting Provider: [facility] Reason for consultation: Seizure D/O; Pt reports seizure activity; EEG scheduled Has provider been notified: No Attending physician on discharge: Sheng Prado Discharging clinician: Lauren Tran DS: Diagnosis Discharge Diagnosis (1) Schizoaffective disorder: Status: Acute DS: Medications Discharge Medications Home Medications: Previous Rx's ?Medication ?Instructions ?Recorded Yoshi Doe 1 applic topical TID PRN joint 04/30/24 stiffness #57 grams Voltaren Gel 1 applic topical QID PRN joint 04/30/24 pain #103.5 mL acetaminophen 325 mg tablet 650 mg (2 x 325 mg) PO Q6H PRN 04/30/24 Headache/Pain Mild Scale (1-3) #120 tabs aluminum-mag hydroxide-simethicone 5 ml PO 5XD PRN heartburn #3,000 mL 04/30/24 200 mg-200 mg-20 mg/5 mL oral susp (Maalox Advanced) apixaban 2.5 mg tablet 2.5 mg PO BID #60 tabs 04/30/24 benztropine 0.5 mg tablet 0.5 mg PO BID #60 tabs 04/30/24 bisacodyl 5 mg tablet 10 mg (2 x 5 mg) PO BEDTIME #30 04/30/24 tabs cyclobenzaprine 10 mg tablet 10 mg PO TID PRN muscle spasms #90 04/30/24 tabs docusate sodium 100 mg capsule 100 mg PO DAILY #30 caps 04/30/24 escitalopram oxalate 5 mg tablet 5 mg PO DAILY #30 tabs 04/30/24 famotidine 40 mg tablet 40 mg PO DAILY #30 tabs 04/30/24 fluphenazine HCl 1 mg tablet 4 mg (4 x 1 mg) PO BID #240 tabs 04/30/24 gabapentin 300 mg capsule 300 mg PO TID #90 caps 04/30/24 ibuprofen 400 mg tablet 400 mg PO Q4H PRN arthritis #120 04/30/24 tabs lamotrigine 25 mg tablet 25 mg PO BID #60 tabs 04/30/24 levetiracetam 1,000 mg tablet 1,000 mg PO BID #60 tabs 04/30/24 lidocaine 5 % topical patch 1 patch topical DAILY #3 ea 04/30/24 losartan 50 mg tablet 50 mg PO DAILY #30 tabs 04/30/24 magnesium hydroxide 400 mg/5 mL 30 ml PO DAILY PRN Constipation 04/30/24 oral suspension (Milk of Magnesia) #365 mL metoprolol succinate 50 mg 50 mg PO DAILY #30 tabs 04/30/24 tablet,extended release 24 hr mirtazapine 7.5 mg tablet 7.5 mg PO BEDTIME #30 tabs 04/30/24 multivitamin with minerals 1 tab PO DAILY #30 tabs 04/30/24 paliperidone 9 mg tablet,extended 9 mg PO DAILY #30 tabs 04/30/24 release 24 hr (Invega) polyethylene glycol 3350 17 gram 17 g PO DAILY #30 ea 04/30/24 oral powder packet (Miralax) sennosides 17.2 mg tablet 17.2 mg PO BID #60 tabs 04/30/24 simethicone 80 mg chewable tablet 80 mg PO QID #120 tabs 04/30/24 (Gas Relief 80 (simethicone)) tramadol 50 mg tablet 25 mg (1/2 x 50 mg) PO Q6H PRN 04/30/24 Pain, Severe (Pain Scale 7-10) #15 tabs trazodone 50 mg tablet 25 mg (1/2 x 50 mg) PO BEDTIME PRN 04/30/24 Insomnia #15 tabs trolamine salicylate 10 % topical 1 appl topical TID PRN arthritis 04/30/24 cream (Aspercreme) sx #0 grams white petrolatum-mineral oil 1 appl topical TID #340 grams 04/30/24 topical cream (Dermacerin topical cream) Mental Status Exam Mental Status Exam Patient Appearance: Appropriate Patient Orientation: Person, Place, Time and Situation Level of Consciousness: Alert Patient Behavior: Talkative, Cooperative and Good Eye Contact Mood Description: Appropriate Affect Description: Appropriate Patient Cognition Impaired: No Ability to Follow Directions: Good Speech Pattern: Spontaneous Speech Memory Description: Intact Hallucinations: None Delusions: Not Present Thought Process: Intact Thought Content: positive for Intact and positive for Circumstantial Depressive Symptoms: Increased Anxiety (worry about where she will go upon discharge) Judgement: Good Data Data Completed and Pending Completed studies during hospitalization [Text1]: 04/28/24 08:36 WBC 5.9 RBC 3.87 L Hgb 11.4 L Hct 35.4 L MCV 91.5 MCH 29.5 MCHC 32.2 RDW 13.8 Plt Count 193 MPV 9.2 L Immature Gran % (Auto) 0.3 Neut % (Auto) 54.4 Lymph % (Auto) 36.9 [place] % (Auto) 7.9 Eos % (Auto) 0.2 Baso % (Auto) 0.3 Lymph # (Auto) 2.2 [place] # (Auto) 0.5 Eos # (Auto) 0.0 Baso # (Auto) 0.0 Abs Immat Gran (auto) 0.02 Absolute Neuts (auto) 3.2 Absolute Nucleated RBC 0.000 Nucleated RBC % (auto) 0.0 Sodium 137 Potassium 4.3 Chloride 104 Carbon Dioxide 25 Anion Gap 12 BUN 18 H Creatinine 0.80 Estim Creat Clear Calc 73.4 Estimated GFR > 60 Random Glucose 109 Calcium 9.7 D Total Bilirubin 0.2 AST 14 ALT 11 Alkaline Phosphatase 66 Total Protein 7.0 Albumin 4.0 Imaging Diagnostic Imaging Impressions Lumbar Spine X-Ray 04/08/24 11:07 IMPRESSION: 1. There is moderate degenerative disease at L2-L3 and L3-L4, and marked degenerative disc disease is seen at L5-S1. 2. There is multi-level lumbar spondylosis and endplate arthropathy. DS: Summary Hospital Course Hospital Course: Admission to adult psychiatry for exacerbation of schizoaffective disorder. Pt is a resident of a retirement and would not return after an admission to [facility]. On admission pt was irritable with multiple medical complaints. These were evaluated by hospitalist team, physical therapy, neurology and with some changes and decreases in medications, encouragement and support improved. PT recommended pt go to [facility] to work with mobility issues. Team called over 30 placements and were rejected. [facility] team was involved to assist in placement. They continued to work on a more appropriate placement for pt during her admission. Pt worked well with med regime decrease and will go to [facility] in [place] for further care and assistance in placement. Status at Discharge Functional status at discharge: independent ambulation Overall status at discharge: patient is back to baseline Time Spent with Patient Time attestation: Total time managing care of this patient today ____ minutes. Time spent: Less than 30 minutes Discharge Plan Discharge Anticipated Discharge Date/Time: 04/30/24 14:00 Patient Disposition: Xfer Other Discharge Diagnosis: Schizoaffective Disorder Referrals: Mohinder [facility] [Other] - 04/30/24 1:30 pm (Patient accepted to [facility] for step-down from hospital level of care. Patient will follow-up with community providers after discharge. ) Discharge Medications: New acetaminophen 325 mg Tablet 650 mg PO Q6H PRN (Reason: Headache/Pain Mild Scale (1-3)) Qty: 120 0RF benztropine 0.5 mg Tablet 0.5 mg PO BID Qty: 60 0RF tramadol 50 mg Tablet 25 mg PO Q6H PRN (Reason: Pain, Severe (Pain Scale 7-10)) Qty: 15 0RF fluphenazine HCl 1 mg Tablet 4 mg PO BID Qty: 240 0RF ibuprofen 400 mg Tablet 400 mg PO Q4H PRN (Reason: arthritis) Qty: 120 0RF gabapentin 300 mg Capsule 300 mg PO TID Qty: 90 0RF escitalopram oxalate 5 mg Tablet 5 mg PO DAILY Qty: 30 0RF mirtazapine 7.5 mg Tablet 7.5 mg PO BEDTIME Qty: 30 0RF paliperidone [Invega] 9 mg Tablet Extended Release 24 Hr 9 mg PO DAILY Qty: 30 0RF trazodone 50 mg tablet 25 mg PO BEDTIME PRN (Reason: Insomnia) Qty: 15 0RF magnesium hydroxide [Milk of Magnesia] 400 mg/5 mL Suspension 30 ml PO DAILY PRN (Reason: Constipation) Qty: 365 0RF trolamine salicylate [Aspercreme] 10 % Cream 1 appl topical TID PRN (Reason: arthritis sx) Qty: 0 0RF Dermacerin Cream 1 appl topical TID Qty: 340 0RF Protocol: Apply to: Apply to: affected areas Yoshi Doe 1 applic topical TID PRN (Reason: joint stiffness) Qty: 57 0RF Voltaren Gel 1 applic topical QID PRN (Reason: joint pain) Qty: 103.5 0RF alum-mag hydroxide-simeth [Maalox Advanced] 200-200-20 mg/5 mL suspension 5 ml PO 5XD PRN (Reason: heartburn) Qty: 3000 0RF Rx Instructions: administer between meals and at bedtime Continued losartan 50 mg Tablet 50 mg PO DAILY Qty: 30 0RF cyclobenzaprine 10 mg Tablet 10 mg PO TID PRN (Reason: muscle spasms) Qty: 90 0RF metoprolol succinate 50 mg Tablet Extended Release 24 Hr 50 mg PO DAILY Qty: 30 0RF famotidine 40 mg Tablet 40 mg PO DAILY Qty: 30 0RF lidocaine 5 % Adhesive Patch,Medicated 1 patch TOPICAL DAILY Qty: 3 0RF Rx Instructions: leave on most painful area for up to 12 hrs docusate sodium 100 mg Capsule 100 mg PO DAILY Qty: 30 0RF simethicone [Gas Relief 80 (simethicone)] 80 mg Tablet,Chewable 80 mg PO QID Qty: 120 0RF sennosides 17.2 mg Tablet 17.2 mg PO BID Qty: 60 0RF apixaban 2.5 mg Tablet 2.5 mg PO BID Qty: 60 0RF polyethylene glycol 3350 [Miralax] 17 gram Powder In Packet 17 g PO DAILY Qty: 30 0RF lamotrigine 25 mg Tablet 25 mg PO BID Qty: 60 0RF multivitamin with minerals Tablet 1 tab PO DAILY Qty: 30 0RF levetiracetam 1,000 mg Tablet 1,000 mg PO BID Qty: 60 0RF Changed bisacodyl 5 mg Tablet 10 mg PO BEDTIME Qty: 30 0RF Discontinued acetaminophen 325 mg Tablet 650 mg PO Q6H PRN (Reason: Anxiety) fluphenazine HCl 2.5 mg Tablet 2.5 mg PO BID lidocaine 4 % Cream 1 appl TOPICAL DAILY thiamine HCl (vitamin B1) 100 mg Tablet 100 mg PO DAILY melatonin 3 mg Tablet 3 mg PO BEDTIME PRN (Reason: Sleep) tramadol 50 mg Tablet 50 mg PO Q4H PRN (Reason: Severe Pain (Scale Score 7-10)) magnesium oxide 400 mg (241.3 mg magnesium) Tablet 400 mg PO DAILY ferrous sulfate 325 mg (65 mg iron) Tablet 325 mg PO DAILY Rx Instructions: with breakfast gabapentin 100 mg Capsule 100 mg PO TID lorazepam 1 mg Tablet 1 mg PO BID fluticasone propionate 50 mcg/actuation Benedict,Suspension 1 spray INTRANASAL BID fluphenazine HCl 5 mg Tablet 5 mg PO BEDTIME paliperidone 6 mg Tablet Extended Release 24hr 6 mg PO QAM miconazole powder 2 topical BEDTIME Discharge Orders: Discharge Order (Routine); Ordered 04/30/24 Ordered By: Lauren Tran Diet: Advance to usual diet Activity on Discharge: As tolerated Stand Alone Forms: Patient Portal Discharge page, Community Support Print Language: Indonesian Care Plan Goals: Mood and Behavioral Stabilization Health Concerns: Mood and Behavioral Stabilization Plan of Treatment: Take medications as directed Attend scheduled appointments Transfer to [facility] [place] to continue to work on transition, coping skills Assessment: Scheduled discharge No SI/HI/AH/VH/Sx of psychosis or julien Anxious regarding her transition. Discharge Date/Time: 04/30/24 14:29
== END 2024-04-30 14:29 | disposition other institution (70) | DRG 885 ==
PROVIDERS: Psychiatry & Neurology Psychiatry; Admitting Provider Psychiatry & Neurology Psychiatry; Visit Provider Clinical Nurse Specialist Psychiatric/Mental Health, Adult
DX: F25.9 Schizoaffective disorder, unspecified (principal); E78.5 Hyperlipidemia, unspecified; I10 Essential (primary) hypertension; G40.909 Epilepsy, unspecified, not intractable, without status epilepticus; Z86.711 Personal history of pulmonary embolism; Z91.040 Latex allergy status; Z79.01 Long term (current) use of anticoagulants; Z79.899 Other long term (current) drug therapy
CPT/HCPCS: 36415; 72100; 80048; 80053; 80061; 80177; 82607; 82746; 83036; 83540; 84146; 84439; 84443; 85025; 92950; 93005; 95816; 97110; 97116; 97161; 97162; J3360

== ENCOUNTER 2024-03-06 15:41 | Outpatient (BNV) | payer OTHER, SELFPAY | END 2024-03-30 18:28 | PROVIDERS: Admitting Provider Psychiatry & Neurology Psychiatry; Visit Provider Internal Medicine | DX: R07.9 Chest pain, unspecified (principal) | CPT/HCPCS: 93010 ==

== ENCOUNTER 2024-03-06 15:41 | Outpatient (BNV) | payer OTHER, SELFPAY | END 2024-03-10 | PROVIDERS: Admitting Provider Psychiatry & Neurology Psychiatry; Visit Provider Internal Medicine | DX: I45.81 Long QT syndrome (principal) | CPT/HCPCS: 93010 ==

== ENCOUNTER → 2024-03-06 15:41 | Outpatient (BNV) | payer OTHER, SELFPAY | PROVIDERS: Admitting Provider Psychiatry & Neurology Psychiatry; Visit Provider Social Worker | DX: F25.0 Schizoaffective disorder, bipolar type (principal) | CPT/HCPCS: 90792; 99231; 99232; 99238 ==

== ENCOUNTER → 2024-03-06 15:41 | Outpatient (BNV) | payer OTHER, SELFPAY | PROVIDERS: Admitting Provider Psychiatry & Neurology Psychiatry; Visit Provider Psychiatry & Neurology Neurology | DX: R56.9 Unspecified convulsions (principal); F25.9 Schizoaffective disorder, unspecified | CPT/HCPCS: 99222 ==

== ENCOUNTER → 2024-03-06 15:41 | Outpatient (BNV) | payer OTHER, SELFPAY | PROVIDERS: Admitting Provider Psychiatry & Neurology Psychiatry; Visit Provider Student in an Organized Health Care Education/Training Program | DX: Z02.2 Encounter for examination for admission to residential institution (principal) | CPT/HCPCS: 99429 ==